=== PATIENT | female | born 1955 | race Caucasian/White ===

== ENCOUNTER 2025-02-11 20:56 | Inpatient (IN) | payer OTHER, MEDICARE ==
[~2025-02-11] VITALS: Ht 172.7 cm; Wt 109.0 kg
[2025-02-11 21:15] VITALS: PULSE 142; RESP 30; O2SAT 87
[2025-02-11] MEDS: SODIUM CHLORIDE 0.9% 1,000 ML IV ONE (21:30)
[2025-02-11 22:00] LABS: Base Excess 0.7 mmol/L (-2.0-3.0)
--- NOTE | 2025-02-11 22:17 | DVH ---
CHEST RADIOGRAPH Indication: AMS Technique: Single frontal view of the chest was obtained Comparison: NONE FINDINGS: Lines and Tubes: None Lungs: Moderately large right pleural effusion with increasing interstitial markings throughout the l eft chest right upper lung field. Findings may represent congestive failure correlate with clinical s etting to exclude pneumonia. Pleura: No effusion. No pneumothorax. Cardiomediastinal contours: Cardiomegaly Bones: No acute osseous abnormality. IMPRESSION: 1. Correlate the clinical setting help distinguish congestive failure versus pneumonia.
[2025-02-11 22:31] LABS: Hematocrit 39.8 % (36.0-46.0); Hemoglobin 12.8 g/dL (12.2-16.2); Mean Corpuscular Hemoglobin 26.2 pg (28.0-32.0); Mean Corpuscular Volume 81.4 fL (80.0-100.0); Nucleated Red Blood Cells % 0.1 %
[2025-02-11 22:40] LABS: Lactic Acid w/Reflex 2.1 mmol/L (0.4-2.0)
--- NOTE | 2025-02-11 22:48 | ECG ---
[facility] Test Date: 2025-02-11 Test Time: 22:08:31 Pat Name: NAIMA PRINCE Department: ED Room: 0236T Gender: F Traffic Director: JOSE JUAN : 1955 Requested By: DEBBIE HELTON Order Number: [id number] Reading MD: Yogi Zimmerman Measurements Intervals [place] Rate: 180 P: 0 CO: 0 QRS: -30 QRSD: 116 T: 125 QT: 293 QTc: 508 Interpretive Statements Atrial fibrillation with rapid V-rate Low voltage, precordial leads LVH with IVCD and secondary repol abnrm Baseline wander in lead(s) V2 Electronically Signed On 02-14-2025 18:59:42 PDT by Yogi Zimmerman Please click the below link to view image of tracing.
[2025-02-11] MEDS: dilTIAZem 25 MG/5 ML VIAL IV ONE (22:53)
[2025-02-11 22:58] LABS: Albumin 3.7 g/dL (3.2-4.8); Alkaline Phosphatase 96 U/L (46-116); Anion Gap 12 (5-15); BUN/Creatinine Ratio 25.3 (10.0-20.0); Bilirubin, Total 0.3 mg/dL (0.2-1.0); Blood Urea Nitrogen 22 mg/dL (9-23); Calcium 9.5 mg/dL (8.7-10.4); Carbon Dioxide 23 mmol/L (20-31); Chloride 100 mmol/L (98-107); Potassium 5.0 mmol/L (3.5-5.1); Sodium 135 mmol/L (136-145); Total Protein 6.2 g/dL (5.7-8.2)
[2025-02-11 22:59] LABS: Alanine Aminotransferase < 9 U/L (7-40); Glucose 484 mg/dL (74-106); Magnesium 1.1 mg/dL (1.6-2.6)
--- NOTE | 2025-02-11 23:11 | ED.PDOC ---
History of Present Illness HPI Comments 69-year-old female who is brought in by ambulance from for [facility] [place] [facility] for chief complaint of altered level consciousness. Significant history of asthma, CVA, DM, HTN, and thyroid disease. Per EMS report, staff of facility reports patient becoming altered after being given insulin and mo rphine, this evening. Upon arrival on scene, patient returned to her normal alert but confused baseline. Vitals stable within normal limits, with the exception of patient being found in AFib at a rate of 179 and blood glucose of 424. At time of assessment, patient endorses on having diffuse chest wall pain, currently, but is unable to elaborate further on the nature and onset of pain, due to her being a poor historian. Patient has no further acute symptoms reported at this time. Chief Complaint: ALOC Time Seen by MD: 21:25 Reviewed Notes: Nurses Notes, Medications, Allergies Allergies: Coded Allergies: NO KNOWN ALLERGIES (Unverified , 02/11/25) Information Source: Patient, Emergency Med Personnel Mode of Arrival: EMS Severity: Moderate Timing: Hours Duration: Since onset Prehospital treatment: None Review of Systems: REVIEW OF SYSTEMS: No fever, no chills, or fatigue HEENT: No sore throat, no earache, no congestion, no neck pain. Cardiac: Diffuse chest wall pain. No palpitations. Lungs: No shortness of breath, no cough. GI: No nausea, no vomiting, no diarrhea, no constipation, no abdominal pain : No dysuria, frequency, or urgency. No hematuria. Musculoskeletal: No joint pain , no joint swelling, no extremity edema. Skin: No rash, no itching. Neuro: Altered level of consciousness. No headache, no dizziness, no weakness Vital Signs Vital Signs Date Time Temp Pulse Resp B/P (MAP) Pulse Ox O2 Delivery O2 Flow Rate FiO2 02/12/25 01:01 140 02/12/25 00:44 123/70 02/11/25 21:15 97.6 30 86 97.6 02/11/25 21:15 Room Air* 0 21 Physical Exam General: Patient speaks very quietly; she is lethargic. Awake, alert and oriented. No acute distress. A&O x1 at baseline Skin: Abrasion wounds across her entire abdomen. Otherwise, remainder of skin is warm, dry and intact. Appropriate color for ethnicity. HEENT: The head is normocephalic and atraumatic. Conjunctivae are clear without exudates or hemorrhage. Sclera is non-icteric. EOM are intact. No signs of nystagmus. Eyelids are normal in appearance without swelling or lesions. Oral mucosa is pink and moist Neck: The neck is supple with normal range of motion. No JVD. Cardiac: Rapid rate, regular rhythm. No murmurs, gallops, or rubs are auscultated. Respiratory: No signs of respiratory distress. Lung sounds are clear in all lobes bilaterally without rales, rhonchi, or wheezes. Abdominal: Abdomen is obese and distended, with generalized tenderness and abrasion wounds. Bowel sounds are present and normoactive in all four quadrants. Extremities: Upper and lower extremities are atraumatic in appearance without deformity or edema. Neurological: The patient is A&Ox 1 at baseline Speech is low but clear. There is no facial asymmetry. Psychiatric: Appropriate mood and affect. Good judgement and insight. Past Medical History PAST MEDICAL HISTORY: Asthma, CVA, DM, HTN, Thyroid Surgical History: Denies all surgeries RESEARCH AND DEVELOPMENT CHEMIST History: Denies all RESEARCH AND DEVELOPMENT CHEMIST Hx Family History Family History: Unknown Social History Smoker: Non-Smoker Alcohol: Denies ETOH Use Drugs: Denies Drug Use Lives In: Shelter Was a procedure done? Was a procedure done?: No EKG EKG #1: Pulse Rate (adult): 175 [place]: Normal Cardiac Rhythm: Afib Hypertrophy: LVH (w/IVCD) ST: Normal Comments QTc 505 EKG #2: Pulse Rate (adult): 180 [place]: Normal Cardiac Rhythm: Afib Block: None Hypertrophy: LVH (w/IVCD) ST: Normal Comments QTC of 508 EKG #3: Pulse Rate (adult): 140 [place]: Normal Cardiac Rhythm: Afib Block: None Hypertrophy: LVH (w/IVCD) ST: Normal Differential Dx Considerations may include: Differential diagnosis considered includes but not limited to intracranial hemorrhage, stroke, head injury, seizure, metabolic disturbance, electrolyte imbalance, infection, substance intoxication, psychiatric cause, other systemic illness, other X-Ray, Labs, Meds, VS Vital Signs Date Time Temp Pulse Resp B/P (MAP) Pulse Ox O2 Delivery O2 Flow Rate FiO2 02/12/25 01:01 140 02/12/25 00:44 123/70 02/12/25 00:00 141 02/11/25 23:56 146 02/11/25 23:21 136/114 02/11/25 23:11 180 02/11/25 22:08 180 02/11/25 21:15 97.6 142 30 146/114 (125) 86 97.6 02/11/25 21:15 142 30 87 Room Air* 0 21 02/11/25 21:05 175 02/11/25 21:05 99.1 179 18 113/82 (92) 95 99.1 Lab Test 02/12/25 01:09 02/12/25 01:02 02/12/25 00:30 02/11/25 23:12 Range/Units Troponin I High Sensitivity Pending 52 *H </=34 ng/L POC Glucose 317 H 70-106 mg/dl Urine Color Pending Urine Clarity Pending Urine pH Pending Urine Specific [place] Pending Urine Protein Pending Urine Ketones Pending Urine Blood Pending Urine Nitrite Pending Urine Bilirubin Pending Urine Urobilinogen Pending Urine Leukocyte Esterase Pending Urine RBC Pending Urine Microscopic WBC Pending Urine Squamous Epithelial Cells Pending Urine Bacteria Pending Urine Glucose Pending Urine Opiates Screen Pending Urine Fentanyl Screen Pending Urine Barbiturates Screen Pending Urine Phencyclidine Screen Pending Urine Amphetamines Screen Pending Urine Benzodiazepines Screen Pending Urine Cocaine Screen Pending Urine Cannabinoids Screen Pending Lactic Acid Level 2.1 *H 0.4-2.0 mmol/L Test 02/11/25 21:52 02/11/25 21:43 02/11/25 21:15 02/11/25 21:13 Range/Units POC Glucose 448 *H 466 *H 422 *H 70-106 mg/dl White Blood Count 10.4 4.4-10.8 10^3/uL Red Blood Count 4.89 4.0-5.20 10^6/uL Hemoglobin 12.8 12.2-16.2 g/dL Hematocrit 39.8 36.0-46.0 % Mean Corpuscular Volume 81.4 80.0-100.0 fL Mean Corpuscular Hemoglobin 26.2 L 28.0-32.0 pg Mean Corpuscular Hemoglobin Concent 32.2 32.0-36.0 g/dL Red Cell Distribution Width 14.6 H 11.8-14.3 % Platelet Count 292 140-450 10^3/uL Mean Platelet Volume 9.2 6.9-10.8 fL Neutrophils (%) (Auto) 84.9 H 37.0-80.0 % Lymphocytes (%) (Auto) 8.3 L 10.0-50.0 % Monocytes (%) (Auto) 5.9 0.0-12.0 % Eosinophils (%) (Auto) 0.0 0.0-7.0 % Basophils (%) (Auto) 0.9 0.0-2.0 % Neutrophils # (Auto) 8.8 H 1.6-8.6 10 ^3/uL Lymphocytes # (Auto) 0.9 0.4-5.4 10 ^3/uL Monocytes # (Auto) 0.6 0-1.3 10 ^3/uL Eosinophils # (Auto) 0 0-0.8 10 ^3/uL Basophils # (Auto) 0.1 0-0.2 10 ^3/uL Nucleated Red Blood Cells 0.1 % Blood Gas Specimen Type Arterial Blood Gas Sample Site Left radial Blood Gas Patient Temperature 37.0 Arterial Blood Date Drawn [id number] Arterial Blood pH 7.446 7.350-7.450 Arterial Blood Partial Pressure CO2 36.3 32.0-45.0 mmHg Arterial Blood Partial Pressure O2 48.9 *L 83.0-108.0 mmHg Arterial Blood HCO3 24.4 21.0-28.0 mmol/L Arterial Blood Oxygen Saturation 83.6 *L 94.0-98.0 % Arterial Blood Base Excess 0.7 -2.0-3.0 mmol/L Arterial Blood Oxyhemoglobin 82.1 L 94.0-98.0 % Arterial Blood Carboxyhemoglobin 1.4 0.5-1.5 % Arterial Blood Methemoglobin 0.4 0.0-1.5 % Julian Test Modified Blood Gas Total Hemoglobin 13.60 12.0-16.0 g/dL Blood Gas Liter Flow 0.00 Blood Gas Modality Room air Blood Gas Spontaneous Rate 18 FiO2 % 36.0 Specimen Drawn By Steven esparza Blood Gas Critical Value Read Back Yes Blood Gas Notified Whom aubree Barrow Blood Gas Notified Time [id number] Blood Gas Notified By Steven esparza Sodium Level 135 L 136-145 mmol/L Potassium Level 5.0 3.5-5.1 mmol/L Chloride Level 100 98-107 mmol/L Carbon Dioxide Level 23 20-31 mmol/L Anion Gap 12 5-15 Blood Urea Nitrogen 22 9-23 mg/dL Creatinine 0.87 0.550-1.02 mg/dL Glomerular Filtration Rate Calc 73 >90 mL/min BUN/Creatinine Ratio 25.3 H 10.0-20.0 Serum Glucose 484 *H 74-106 mg/dL Lactic Acid Level 2.1 *H 0.4-2.0 mmol/L Calcium Level 9.5 8.7-10.4 mg/dL Magnesium Level 1.1 L 1.6-2.6 mg/dL Total Bilirubin 0.3 0.2-1.0 mg/dL Aspartate Amino Transferase (AST) < 8 L 13-40 U/L Alanine Aminotransferase (ALT) < 9 7-40 U/L Alkaline Phosphatase 96 46-116 U/L Troponin I High Sensitivity 55 *H </=34 ng/L B-Type Natriuretic Peptide 553.40 0-100 pg/mL Total Protein 6.2 5.7-8.2 g/dL Albumin 3.7 3.2-4.8 g/dL Lipase 21 12-53 U/L Beta-Hydroxybutyric Acid 1.335 H < 0.4 mmol/L Thyroid Stimulating Hormone (TSH) 4.11 0.55-4.78 uIU/mL Plasma/Serum Blood Alcohol < 3.0 <10 mg/dL Current Medications Medications (Trade) Dose Ordered Sig/Lindsey Route Start Time Stop Time Status Last Admin Sodium Chloride 1,000 ml @ 1,000 mls/hr Q1H ONCE IV 02/11/25 21:30 02/11/25 22:29 DC 02/11/25 21:30 Diltiazem HCl (Cardizem Injection) 20 mg ONCE ONCE IV 02/11/25 21:30 02/11/25 21:31 DC 02/11/25 22:53 Furosemide (Lasix Injection) 20 mg ONCE ONCE IV 02/11/25 23:00 02/11/25 23:01 DC 02/11/25 23:21 Insulin Human Regular (InsuLIN R) 6 units ONCE ONCE IV 02/11/25 23:15 02/11/25 23:16 DC 02/11/25 23:22 Diltiazem HCl (Cardizem Injection) 15 mg ONCE ONCE IV 02/12/25 00:15 02/12/25 00:16 DC 02/12/25 00:19 Diltiazem HCl 125 ml @ 5 mls/hr Q24H ONCE IV 02/12/25 00:15 02/12/25 01:26 DC 02/12/25 00:44 Time of 1ST Reevaluation: 01:42 Reevaluation 1ST: Improved Patient Education/Counseling: Other (Patient is confused) Family Education/Counseling: No Family Present SEPSIS Sepsis Screen Date sepsis recognized/suspect: Feb 11, 2025 Time Sepsis recognized/suspect: 2110 Recent Procedure: No On Antibiotic Therapy: No Respiratory Rate >20: No Heart Rate >90: Yes Temp<36 C (96.8 F) or >38.3 C: No SBP <90 or MAP <65 mmHG: No New Acute Mental Status Change: Yes Is the patient on CPAP, BIPAP,: No Physician Orders Abg W/ Co-Ox (02/11/25 21:24) Saline Lock (02/11/25 21:24) Urinalysis (02/11/25 21:24) Drug Screen (02/11/25 21:24) Covid19 Antigen Lenka (02/11/25 ) Rapid Influenza A&B (02/11/25 21:24) Chest Xray 1 View (02/11/25 21:24) Blood Culture (02/11/25 21:24) Saline Lock (02/11/25 21:24) Straight Cath. (02/11/25 ) Troponin-I Hs (02/12/25 00:24) Electrocardigram (02/11/25 22:24) Electrocardigram (02/12/25 00:24) Eap Consultant (02/11/25 ) Notify Md If Abnormal Vs (02/11/25 22:01) Blood Glucose Assessment (02/12/25 00:09) Vital Signs Date Time Temp Pulse Resp B/P (MAP) Pulse Ox O2 Delivery O2 Flow Rate FiO2 02/12/25 01:01 140 02/12/25 00:44 123/70 02/12/25 00:00 141 02/11/25 23:56 146 02/11/25 23:21 136/114 02/11/25 23:11 180 02/11/25 22:08 180 02/11/25 21:15 97.6 142 30 146/114 (125) 86 97.6 02/11/25 21:15 142 30 87 Room Air* 0 21 02/11/25 21:05 175 02/11/25 21:05 99.1 179 18 113/82 (92) 95 99.1 Laboratory Tests Test 02/11/25 21:43 02/11/25 23:12 Lactic Acid Level 2.1 mmol/L (0.4-2.0) *H 2.1 mmol/L (0.4-2.0) *H White Blood Count 10.4 10^3/uL (4.4-10.8) Medications Medications Dose Ordered Sig/Lindsey Route Start Time Stop Time Status Last Admin Dose Admin Diltiazem HCl 15 mg ONCE ONCE IV 02/12/25 00:15 02/12/25 00:16 IL 02/12/25 00:19 Diltiazem HCl 20 mg ONCE ONCE IV 02/11/25 21:30 02/11/25 21:31 IL 02/11/25 22:53 Diltiazem HCl 125 ml @ 5 mls/hr Q24H ONCE IV 02/12/25 00:15 02/12/25 01:26 IL 02/12/25 00:44 Furosemide 20 mg ONCE ONCE IV 02/11/25 23:00 02/11/25 23:01 IL 02/11/25 23:21 Insulin Human Regular 6 units ONCE ONCE IV 02/11/25 23:15 02/11/25 23:16 IL 02/11/25 23:22 Sodium Chloride 1,000 ml @ 1,000 mls/hr Q1H ONCE IV 02/11/25 21:30 02/11/25 22:29 IL 02/11/25 21:30 Departure 1 Departure Time of Disposition: 23:30 Impression: Primary Impression: Altered mental status Additional Impressions: Hyperglycemia Pleural effusion Disposition: ADMITTED INPATIENT Condition: Stable Comments Patient stabilized in the emergency department. Started on Lasix, Cardizem bolus and drip. Patient admitted to hospitalist service for further treatment, evaluation and monitoring. Extensive evaluation was performed in attempt to identify or rule out: (See differential diagnosis section) The following tests were ordered, and results were reviewed by me and discussed with patient: (See diagnostic results section) The following test were independently interpreted by me: EKG I reviewed and agreed with the following test results read by other providers: Chest x-ray I reviewed the following notes from the pt's past medical encounters: N/A Additional information was gathered from interviewing the following independent historians: EMS Discussion of management or test interpretation with external physician/other qualified health skin care consultant: N/A Addressed an acute or chronic illness that poses a threat to life or bodily function: Atrial fibrillation, pleural effusion, hypoxia, Decision regarding hospitalization or escalation of hospital level of care: Risk and benefits of admission for further treatment of patient's condition was considered. Due to patient's current clinical condition, high risk of decline and poor outcome if discharged and need for further inpatient management and monitoring, patient will be admitted to the hospital. Drug therapy requiring intensive monitoring for toxicity: IV Cardizem, IV Lasix Parenteral controlled substances: N/A Decision regarding elective major surgery with identified patient or procedure risk factors: N/A Decision regarding emergency major surgery: N/A Decision not to resuscitate or to de-escalate care because of poor prognosis: N/A Diagnosis or treatment significantly limited by social determinants of health: N/A Critical Care Note Critical Care Time?: Yes (35 min-critical care time only) Critical care comment: Due to a high probability of clinically significant, life threatening deterioration, the patient required my highest level of preparedness to intervene emergently and I personally spent this critical care time directly and personally managing the patient. This critical care time included obtaining a history; examining the patient; pulse oximetry; ordering and review of studies; arranging urgent treatment with development of a management plan; evaluation of patient's response to treatment; frequent reassessment; and, discussions with other providers. This critical care time was performed to assess and manage the high probability of imminent, life-threatening deterioration that could result in multi-organ failure. It was exclusive of separately billable procedures and treating other patients and teaching time. Please see my other sections and the rest of the note for further information on patient assessment and treatment. Stability Stability form required: No Heart Score Heart Score: Heart Score Response (Comments) Value History Slightly Suspicious 0 EKG Repolarization Disturb 1 Age >65 2 Risk Factors >3 or Hx ASHD 2 Troponin Normal limit 0 Total 5 I personally scribed for DEBBIE HELTON MD ([email or web address]) on 02/11/25 at 23:11. Electronically submitted by Cosme Horton ([email or web address]). I personally scribed for DEBBIE HELTON MD ([email or web address]) on 02/12/25 at 01:01. Electronically submitted by Cosme Horton ([email or web address]). DEBBIE HELTON MD Feb 11, 2025 23:11
[2025-02-11 23:12] LABS: Lipase 21 U/L (12-53)
[2025-02-11] MEDS: FUROSEMIDE 40 MG/4 ML VIAL IV ONE (23:21)
[2025-02-11] MEDS: InsuLIN REG 1unit/0.01ml Soln (100units/ml) IV ONE (23:22)
[2025-02-12] MEDS: dilTIAZem 25 MG/5 ML VIAL IV ONE (00:19)
[2025-02-12] MEDS ORDERED: ONDANSETRON HCL 4 MG/2 ML VIAL IV PRN (01:15)
[2025-02-12] MEDS ORDERED: DEXTROSE (50%) 50ML SYRG IV PRN (01:15)
[2025-02-12] MEDS ORDERED: NITROGLYCERIN 0.4 MG SL TAB SL PRN (01:15)
[2025-02-12] MEDS ORDERED: INSULIN LANTUS (GLARGINE) 1 /0.01ml (100units/ml) SC ONE (01:30)
[2025-02-12 01:41] LABS: Opiate Scree,Urine Neg (NEGATIVE); Urine Budding Yeast LOADED /hpf (None Seen); Urine Protein, UAD Negative (Negative)
[2025-02-12 01:43] LABS: Barbiturate Scree,Urine Neg (NEGATIVE); Phencyclidine Screen, Urine Neg (NEGATIVE)
[2025-02-12 01:44] LABS: Amphetamine Screen, Urine Neg (NEGATIVE); Benzodiazephine Screen, Urine Neg (NEGATIVE); Cannabinoid Screen, Urine Neg (NEGATIVE); Cocaine Screen, Urine Neg (NEGATIVE)
--- NOTE | 2025-02-12 01:48 | DVHHP2 ---
History of Present Illness History of Present Illness Patient is 69 years old female hospice revoked with a past medical history of hypertension, diabetes mellitus type 2, CVA with right-sided residual, hyperlipidemia, asthma, hypothyroidism, MDD, anxiety [facility] due to altered mental status. Patient is a poor historian, information was gathered from chart reviewing and after talking to the patient. Patient became altered and confused after she had insulin and morphine at [facility], EMS was called and blood sugars found to be 424, patient was also tachycardic with atrial fibrillation with a rate 179. Later on patient's mental status improved but still with some confusion. On discussion with the patient she reported feeling short of breath at the facility and on arrival to ER her saturation was 82 -86% in room air. Patient endorsed shortness of breaths has been going on for a few days but could not give exact account. Patient also endorsed abdominal pain, severe, intermittent, 10/10, reported it has been going on for a while but could not give exact duration. Initial lab workup revealed neutrophil 84.9%, blood sugar 448, lactic acid 2.1, magnesium 1.1, troponin I 55, BNP 553, lipase 21, beta hydroxybutyrate acid 1.3, TSH 4.0, patient tested negative for COVID and influenza. chest x-ray-B/L pleural effusion, Moderately large right pleural effusion with increasing interstitial markings throughout the left chest and right upper lung field. EKG revealed atrial fibrillation with rapid ventricular rate 179. At the ER patient had IV diltiazem for atrial fibrillation with a rapid ventricular rate. CT angio chest revealed-Lobar pulmonary embolism in the left pulmonary artery. Pulmonary edema and bilateral pleural effusions concerning for congestive heart failure. Left upper lobe bronchiectasis and consolidation concerning for infectious etiology. Cardiomegaly. CT abdominal pelvis revealed- 7mm nonobstructive calculus in the right renal pelvis. Additional 3 mm nonobstructive stone in the upper pole of the right kidney.Stool throughout the colon may suggest constipation. Past Medical History hypertension, diabetes mellitus type 2, CVA with right-sided residual, hyperlipidemia, asthma, hypothyroidism, MDD, anxiety Past Social History [facility], denies smoking/alcoholism/drug abuse Review of Systems Review of Systems Patient is a poor historian and details of the other system could not be obtained Allergies: Coded Allergies: NO KNOWN ALLERGIES (Unverified , 7/7/25) Medications Current Medications Medications Dose Ordered Sig/Lindsey Route Start Time Stop Time Status Last Admin Dose Admin Sodium Chloride 10 ml Q8HR IV 02/12/25 06:00 Ondansetron HCl 4 mg Q4HP PRN IV 02/12/25 01:15 Nitroglycerin 0.4 mg Q5MINP PRN SL 02/12/25 01:15 Diagnostic Test (Pha) 1 strip IQ4HR 02/12/25 04:00 Insulin Human Regular IQ4HR SC 02/12/25 04:00 Dextrose 50 ml UD PRN IV 02/12/25 01:15 Piperacillin Sod/ Tazobactam Sod 100 ml @ 25 mls/hr Q8HR IV 02/12/25 14:00 Azithromycin 250 ml @ 125 mls/hr DAILY IV 02/13/25 10:00 Pantoprazole Sodium 40 mg DAILY IV 02/13/25 10:00 Magnesium Sulfate/ Dextrose 100 ml @ 100 mls/hr Q1H IV 02/12/25 01:30 02/12/25 03:29 Furosemide 40 mg BIDD IV 02/12/25 06:00 Enoxaparin Sodium 90 mg Q12HR SC 02/12/25 10:00 Exam Vital Signs Vital Signs Date Time Temp Pulse Resp B/P (MAP) Pulse Ox O2 Delivery O2 Flow Rate FiO2 02/12/25 01:12 127/72 02/12/25 01:01 140 02/11/25 21:15 97.6 30 86 97.6 02/11/25 21:15 Room Air* 0 21 Exam General examination- patient with shortness of breath HEENT- PEERLA, no acute nasal discharge Cardiovascular- S1-S2 audible, rate and rhythm irregular Respiratory- diminished bilateral lung sounds, bilateral lung crackles++ Gastrointestinal-diffuse abdominal tenderness especially in the lower abdomen++, , bowel sound+. Musculoskeletal-no acute joint swelling or tenderness or redness Lower extremity- no leg edema Neurological- patient with right-sided hemiparesis, right hand contracture Skin- no acute rash or purpura Labs/Xrays Labs Test 02/12/25 01:15 02/12/25 01:09 02/12/25 01:02 02/12/25 00:30 Range/Units POC Glucose 317 H 70-106 mg/dl Urine Color Colorless Yellow Urine Clarity Turbid H Clear Urine pH 5.0 5.0-9.0 Urine Specific [place] 1.008 1.001-1.035 Urine Protein Negative Negative Urine Ketones Negative Negative Urine Blood 1+ H Negative /uL Urine Nitrite Negative Negative Urine Bilirubin Negative Negative Urine Urobilinogen Normal Negative mg/dL Urine Leukocyte Esterase 3+ Negative /uL Urine RBC 35 0 - 4 /hpf Urine Microscopic WBC 146 H 0-5 /HPF Urine Squamous Epithelial Cells None seen <5 /hpf Urine Bacteria Many H None Seen /hpf Urine Hyaline Casts Few 0 - 2 /lpf Urine Mucus Few None Seen Urine Yeast (Budding) Loaded None Seen /hpf Urine Glucose 2+ H Normal mg/dL Urine Opiates Screen Neg NEGATIVE Urine Fentanyl Screen Neg NEGATIVE Urine Barbiturates Screen Neg NEGATIVE Urine Phencyclidine Screen Neg NEGATIVE Urine Amphetamines Screen Neg NEGATIVE Urine Benzodiazepines Screen Neg NEGATIVE Urine Cocaine Screen Neg NEGATIVE Urine Cannabinoids Screen Neg NEGATIVE Test 02/11/25 23:12 02/11/25 21:43 Range/Units Lactic Acid Level 2.1 *H 0.4-2.0 mmol/L White Blood Count 10.4 4.4-10.8 10^3/uL Red Blood Count 4.89 4.0-5.20 10^6/uL Hemoglobin 12.8 12.2-16.2 g/dL Hematocrit 39.8 36.0-46.0 % Mean Corpuscular Volume 81.4 80.0-100.0 fL Mean Corpuscular Hemoglobin 26.2 L 28.0-32.0 pg Mean Corpuscular Hemoglobin Concent 32.2 32.0-36.0 g/dL Red Cell Distribution Width 14.6 H 11.8-14.3 % Platelet Count 292 140-450 10^3/uL Mean Platelet Volume 9.2 6.9-10.8 fL Neutrophils (%) (Auto) 84.9 H 37.0-80.0 % Lymphocytes (%) (Auto) 8.3 L 10.0-50.0 % Monocytes (%) (Auto) 5.9 0.0-12.0 % Eosinophils (%) (Auto) 0.0 0.0-7.0 % Basophils (%) (Auto) 0.9 0.0-2.0 % Neutrophils # (Auto) 8.8 H 1.6-8.6 10 ^3/uL Lymphocytes # (Auto) 0.9 0.4-5.4 10 ^3/uL Monocytes # (Auto) 0.6 0-1.3 10 ^3/uL Eosinophils # (Auto) 0 0-0.8 10 ^3/uL Basophils # (Auto) 0.1 0-0.2 10 ^3/uL Nucleated Red Blood Cells 0.1 % Blood Gas Specimen Type Arterial Blood Gas Sample Site Left radial Blood Gas Patient Temperature 37.0 Arterial Blood Date Drawn [id number] Arterial Blood pH 7.446 7.350-7.450 Arterial Blood Partial Pressure CO2 36.3 32.0-45.0 mmHg Arterial Blood Partial Pressure O2 48.9 *L 83.0-108.0 mmHg Arterial Blood HCO3 24.4 21.0-28.0 mmol/L Arterial Blood Oxygen Saturation 83.6 *L 94.0-98.0 % Arterial Blood Base Excess 0.7 -2.0-3.0 mmol/L Arterial Blood Oxyhemoglobin 82.1 L 94.0-98.0 % Arterial Blood Carboxyhemoglobin 1.4 0.5-1.5 % Arterial Blood Methemoglobin 0.4 0.0-1.5 % Julian Test Modified Blood Gas Total Hemoglobin 13.60 12.0-16.0 g/dL Blood Gas Liter Flow 0.00 Blood Gas Modality Room air Blood Gas Spontaneous Rate 18 FiO2 % 36.0 Specimen Drawn By Steven kim rt Blood Gas Critical Value Read Back Yes Blood Gas Notified Whom aubree Barrow Blood Gas Notified Time [id number] Blood Gas Notified By Steven kim rt Sodium Level 135 L 136-145 mmol/L Potassium Level 5.0 3.5-5.1 mmol/L Chloride Level 100 98-107 mmol/L Carbon Dioxide Level 23 20-31 mmol/L Anion Gap 12 5-15 Blood Urea Nitrogen 22 9-23 mg/dL Creatinine 0.87 0.550-1.02 mg/dL Glomerular Filtration Rate Calc 73 >90 mL/min BUN/Creatinine Ratio 25.3 H 10.0-20.0 Serum Glucose 484 *H 74-106 mg/dL Calcium Level 9.5 8.7-10.4 mg/dL Magnesium Level 1.1 L 1.6-2.6 mg/dL Total Bilirubin 0.3 0.2-1.0 mg/dL Aspartate Amino Transferase (AST) < 8 L 13-40 U/L Alanine Aminotransferase (ALT) < 9 7-40 U/L Alkaline Phosphatase 96 46-116 U/L B-Type Natriuretic Peptide 553.40 0-100 pg/mL Total Protein 6.2 5.7-8.2 g/dL Albumin 3.7 3.2-4.8 g/dL Lipase 21 12-53 U/L Beta-Hydroxybutyric Acid 1.335 H < 0.4 mmol/L Thyroid Stimulating Hormone (TSH) 4.11 0.55-4.78 uIU/mL Plasma/Serum Blood Alcohol < 3.0 <10 mg/dL Assessment/Plan Assessment/Plan Assessment and plan # metabolic encephalopathy likely due to pneumonia/hyperglycemia -blood sugar 484, lactic acid 2.1, -continue IV antibiotic Zosyn and azithromycin as prescribed -continue insulin sliding scale as prescribed -continue insulin Lantus as prescribed -pending blood culture, urine culture, sputum culture -pending CT angio chest -monitor vitals -strict I&O # sepsis likely due to pneumonia --continue IV antibiotic Zosyn and azithromycin as prescribed -chest [id number] pleural effusion with haziness in the left side of the chest -pending blood culture, urine culture, sputum culture -monitor vitals -strict I&O # pulmonary embolism - CT angio chest revealed-Lobar pulmonary embolism in the left pulmonary artery. Pulmonary edema and bilateral pleural effusions concerning for congestive heart failure. Left upper lobe bronchiectasis and consolidation concerning for infectious etiology. Cardiomegaly. -continue Lovenox 90 mg subcutaneously b.i.d. -pending cardiology and Pulmonary consult # pneumonia Gram-positive versus Gram-negative --CT angio chest CT angio chest revealed-Lobar pulmonary embolism in the left pulmonary artery. Pulmonary edema and bilateral pleural effusions concerning for congestive heart failure. Left upper lobe bronchiectasis and consolidation concerning for infectious etiology. Cardiomegaly. -pending ultrasound of the chest --continue IV antibiotic Zosyn and azithromycin as prescribed -chest [id number] pleural effusion with diffuse haziness in the left side of the chest -pending blood culture, urine culture, sputum culture # acute hypoxic respiratory failure likely due to pneumonia/heart failure systolic versus diastolic -continue Lasix 40 mg IV b.i.d. -continue IV antibiotic Zosyn and azithromycin as prescribed -BNP 553 -pending cardiology consult -pending echo 2D # acute heart failure systolic versus diastolic --continue Lasix 40 mg IV b.i.d. -BNP 553 -pending cardiology consult -pending echo 2D # uncontrolled diabetes mellitus type 2 -continue insulin sliding scale as prescribed -continue insulin Lantus as prescribed # atrial fibrillation with rapid ventricular rate -status post i/v diltiazem -continue IV amiodarone as per protocol -continue Lovenox 90 mg subcutaneously b.i.d. # acute complicated cystitis -urinalysis revealed leukocyte esterase 3+, WBC 146, bacteria many -pending urine culture -continue IV antibiotic Zosyn as prescribed # intractable abdominal pain likely due to nephrolithiasis -CT abdominal pelvis revealed- 7mm nonobstructive calculus in the right renal pelvis. -Additional 3 mm nonobstructive stone in the upper pole of the right kidney.S -continue pain medication as prescribed -consult urology -continue Flomax 0.4 mg p.o. daily # hypertension -monitor blood pressure # acute abdominal pain under evaluation -pending CT abdomen and pelvis # bilateral pleural effusion, rule out pneumonia/heart failure/PE -Pending CT angio chest -ordered ultrasound of the chest -pending Pulmonary consult # lactic acidosis likely due to sepsis -continue current management # hypomagnesemia -supplemented # hypothyroidism -restarted home medication levothyroxine 200 mcg p.o. q.a.m. # hyperlipidemia -atorvastatin 40 mg p.o. q.h.s. # asthma -continue nebulization as prescribed # MDD # anxiety Strict I&O Diet NPO Patient wished to DNI/DNR, but okay with IV fluid, IV antibiotic, LAab workup, Radio imaging, vasopressor Goals of care, Code statusDNR ; discussed with >15 minutes PUD prophylaxis: Pantoprazole DVT prophylaxis: Lovenox Plan discussed with Dr. Rosales , nursing staff, Total time spent on patient evaluation, chart review, assessment and plan, discussion discussion >35 minutes Plan discussed with: Patient, Other (RN) My Orders Orders - GENNARO CASTILLO RESIDENT Procedure Category Date Status Time Admit ADMIT 02/12/25 Transmitted 01:09 Sodium Chloride Lock PHA 02/12/25 In Process (Saline Lock Ns) 06:00 Ondansetron Hcl PHA 02/12/25 In Process (Zofran) 01:15 Npo (Nothing By DIET 02/12/25 Transmitted Mouth) Diet Breakfast Echo 2d Mode Cardiac US 02/12/25 Logged DOP 01:09 Nitroglycerin PHA 02/12/25 In Process Sublingual (Ntrostat 01:15 Notify Of Changes JASON 02/12/25 In Process From Base 01:09 Consumer Analyst For JASON 02/12/25 In Process 24 Hours 01:09 Glucose Blood PHA 02/12/25 In Process (Accu-Chek Comfort 04:00 Insulin R (Human) PHA 02/12/25 In Process (Insulin R) 04:00 Dextrose 50% Syringe PHA 02/12/25 In Process 01:15 Piperacillin-Tazob PHA 02/12/25 In Process 3.375gm (Zosyn 3.375g 14:00 Piperacillin-Tazob PHA 02/12/25 In Process 3.375gm (Zosyn 3.375g 01:15 Azithromycin 500mg/ PHA 02/12/25 In Process 250ml (Zithromax 50 01:15 *Consult CONS 02/12/25 Transmitted / 01:11 * Cardiology Consult CONS 02/12/25 Transmitted 01:11 Magnesium Sulfate PHA 02/12/25 In Process 1gm/100ml 01:30 Azithromycin 500mg/ PHA 02/13/25 In Process 250ml (Zithromax 50 10:00 Pantoprazole PHA 02/13/25 In Process (Protonix) 10:00 Furosemide Injection PHA 02/12/25 In Process (Lasix Injection) 06:00 Mrsa Screen DESIREE 02/12/25 Logged 01:20 Enoxaparin Sodium PHA 02/12/25 In Process (Lovenox) 10:[address] 02/12/25 Logged Contrast 01:23 Blood Culture DESIREE 02/12/25 Logged 01:25 Respiratory Culture DESIREE 02/12/25 Logged W/ Gs 01:25 Urine Bacterial DESIREE 02/12/25 Logged Culture 01:25 Amiodarone PHA 02/12/25 In Process 360mg/200ml Premix 01:45 Amiodarone PHA 02/12/25 In Process 360mg/200ml Premix 07:45 Transfer Orders XFER 02/12/25 Transmitted 01:27 Intake And Output JASON 02/12/25 In Process 01:28 Chest Ultrasound US 02/12/25 Taken 01:30 Ct Ab Pel Wo Con-No CT 02/12/25 Logged Oral Or Iv 01:46 Date of Service: Feb 12, 2025 Billing Provider: NINOSKA ROSALES MD Common Visit Codes: 96421-OCZNRCH INP/OBS CARE (HIGH) Secondary Visit Codes: 36675-[id number] CARE PLAN 30 MINUTES GENNARO CASTILLO RESIDENT Feb 12, 2025 01:48
[2025-02-12] MEDS: PANTOPRAZOLE 40 MG/10 ML VIAL INJ IV ONE (02:05)
[2025-02-12] MEDS: MAGNESIUM SULFATE 1GM/100ML 100 ML IV SCH (02:05)
[2025-02-12] MEDS: AMIODARONE BOLUS KIT 100 ML IV ONE (02:05)
[2025-02-12] MEDS: ENOXAPARIN SOD 100 MG/1 ML SYRINGE SC ONE (02:06)
[2025-02-12] MEDS: AMIODARONE 360mg/200mL PREMIX 200 ML IV ONE (02:27)
[2025-02-12 02:44] LABS: COVID19 ANTIGEN SOFIA FIA NEGATIVE (NEGATIVE)
--- NOTE | 2025-02-12 03:35 | DVH ---
Bilateral Chest Sonogram Date: 02/12/2025 01:40 AM Clinical history: SOB Findings: Limited sonographic evaluation of the right and left chest was performed to localize and steve fluid f or thoracentesis. There is a small pleural effusion. IMPRESSION: Small bilateral pleural effusions, too small for thoracentesis. END IMPRESSION:
[2025-02-12] MEDS: InsuLIN REG 1unit/0.01ml Soln (100units/ml) SC SCH (04:00)
[2025-02-12] MEDS: PIPERACILLIN-TAZOB 3.375GM 100 ML IV ONE (04:20)
[2025-02-12] MEDS: ACCU-CHEK COMFORT CURVE STRIP VI SCH (04:20)
[2025-02-12] MEDS: INSULIN LANTUS (GLARGINE) 1 /0.01ml (100units/ml) SC ONE (04:20)
[2025-02-12] MEDS: AZITHROMYCIN 500MG/ 250ML 250 ML IV ONE (05:47)
[2025-02-12] MEDS: SODIUM CHLOR 0.9% PF (SALINE LOCK) 10ML VIAL/SYR IV SCH (06:29)
[2025-02-12] MEDS: LEVOTHYROXINE SODIUM 100 MCG TAB PO SCH (06:30)
[2025-02-12] MEDS: IOHEXOL 300 MG/ML 100ML BOTTLE IJ ONE (06:30)
[2025-02-12] MEDS: FUROSEMIDE 40 MG/4 ML VIAL IV SCH (06:30)
--- NOTE | 2025-02-12 06:35 | ECG ---
[facility] Test Date: 2025-02-11 Test Time: 21:05:22 Pat Name: NAIMA PRINCE Department: ED Room: 0236T Gender: F Food Service Tray Attendant: ED : 1955 Requested By: DEBBIE HELTON Order Number: [id number] Reading MD: Yogi Zimmerman Measurements Intervals [place] Rate: 175 P: -17 OK: 84 QRS: -35 QRSD: 118 T: 140 QT: 296 QTc: 505 Interpretive Statements Supraventricular tachycardia LVH with IVCD and secondary repol abnrm Baseline wander in lead(s) V2,V3 Electronically Signed On 02-14-2025 18:59:28 PDT by Yogi Zimmerman Please click the below link to view image of tracing.
--- NOTE | 2025-02-12 06:36 | DVH ---
CTA Chest with intravenous contrast INDICATION: SOB, RULE OUT PE COMPARISON: Chest radiograph performed on 02/11/2025 TECHNIQUE: Multidetector spiral CTA of the chest was performed of the chest with 100 cc of omnipaque 300 intravenous contrast. PULMONARY ANGIOGRAPHY PROTOCOL was utilized using a bolus-tracking techniqu e centered on the main pulmonary artery. Coronal and sagittal multiplanar and MIP reformats were perf ormed. Radiation Dose : 1. Chest: CTDI volume is 26.6 mGy. Dose-length product is 13.8 mGy*cm The dose indicators for CT are the volume Computed Tomography (CT) Dose Index (CTDIvol) and the Dose Length Product (DLP), and are measured in units of mGy and mGy-cm, respectively. These indicators are not patient dose, but values generated from the CT scanner acquisition factors. The report includes radiation exposure data for exposures received during this examination. FINDINGS: Pulmonary artery: Filling defects in the left pulmonary artery consistent with pulmonary embolism. Lower neck: The thyroid is unremarkable. Lungs: Bilateral interlobular interlobular septal thickening and ground-glass opacities. Left upper l obe bronchiectasis and consolidation. Central airways: Patent. Pleura: No pneumothorax. Small bilateral pleural effusions. Heart/Vascular Structures: The heart is enlarged. The RV to LV ratio measures 0.7. No pericardial ef fusion. Thoracic aorta is normal in caliber. No aneurysm or dissection. Lymph Nodes: No mediastinal or hilar lymphadenopathy. Esophagus:Grossly unremarkable. Musculoskeletal: Unremarkable. Body wall: Unremarkable. Upper abdomen: Unremarkable. IMPRESSION: 1. Lobar pulmonary embolism in the left pulmonary artery. No CT evidence of right heart strain. 2. Pulmonary edema and bilateral pleural effusions concerning for congestive heart failure. 3. Left upper lobe bronchiectasis and consolidation concerning for infectious etiology. 4. Cardiomegaly.
--- NOTE | 2025-02-12 06:37 | ECG ---
[facility] Test Date: 2025-02-12 Test Time: 01:53:52 Pat Name: NAIMA PRINCE Department: ED Room: 0236T Gender: F Resource Specialist Teacher: JOSE JUAN : 1955 Requested By: DEBBIE HELTON Order Number: [id number] Reading MD: Yogi Zimmerman Measurements Intervals [place] Rate: 116 P: 0 SD: 0 QRS: -33 QRSD: 118 T: 118 QT: 356 QTc: 495 Interpretive Statements Atrial fibrillation Low voltage, precordial leads LVH with IVCD and secondary repol abnrm Borderline prolonged QT interval Electronically Signed On 02-14-2025 19:00:00 PDT by Yogi Zimmerman Please click the below link to view image of tracing.
--- NOTE | 2025-02-12 07:25 | DVH ---
Exam: CT CT AB PEL WO CON-NO ORAL OR IV History: ABDOMINAL PAIN Comparison Study: None Technique: Multidetector spiral CT of the abdomen and pelvis was performed from lung bases to pubic s ymphysis. Imaging was performed without intravenous contrast. Coronal and sagittal multiplanar reform ats were obtained from the axial data set by the technologist. Radiation Dose : 1. Abdomen/Pelvis: CTDIvol 28.58 mGy, DLP 2581.4 mGy*cm. Findings: Evaluation of vasculature and solid organs is limited due to lack of intravenous contrast use. Lung Bases: Please see separate CT of the chest. Liver: The liver is normal in size. No focal lesions. Gallbladder and Biliary Tree: The gallbladder is unremarkable. No intrahepatic or extrahepatic biliar y ductal dilatation. Spleen: Unremarkable Pancreas: The pancreas is grossly unremarkable. Adrenal Glands: Unremarkable Kidneys: There is a 7 mm nonobstructive calculus in the right renal pelvis. Additional 3 mm nonobstr uctive stone in the upper pole of the right kidney. No hydronephrosis. GI tract: The stomach is grossly normal in appearance. No evidence of small bowel wall thickening or abnormal dilatation to suggest bowel obstruction. There is stool throughout the colon. Normal appendi x. Peritoneum/mesentery/retroperitoneum. No evidence of free intraperitoneal air. No ascites. No evidenc e of suspicious lymphadenopathy. Abdominal Wall: Unremarkable. Vasculature: The visualized abdominal aorta is normal in size and caliber. Evaluation of abdominal a nd pelvic vessels is limited due to lack of intravenous contrast. Urinary Bladder: Atwood catheter in the urinary bladder. Urinary bladder is contracted. Pelvic Organs: Unremarkable. Musculoskeletal: No aggressive focal bony lesions, acute fractures or dislocation. IMPRESSION: 1. 7mm nonobstructive calculus in the right renal pelvis. Additional 3 mm nonobstructive stone in th e upper pole of the right kidney. 2. Atwood catheter in the urinary bladder. Urinary bladder is contracted. 3. Stool throughout the colon may suggest constipation. 4. Please see separate CT chest same date.
[2025-02-12 07:30] VITALS: PULSE 100; RESP 29; O2SAT 94
--- NOTE | 2025-02-12 07:54 | DVH ---
Bilateral lower extremity venous duplex Clinical History: PE Comparison: None Technique: Duplex Doppler evaluation of the deep venous systems of both lower extremities from the common femora l veins to the popliteal veins including color Doppler and spectral/pulsed waveform analysis was perf ormed. Findings: RIGHT SIDE: The common femoral vein demonstrates appropriate compressibility and waveform variability . The great saphenous vein at the proximal thigh is compressible/patent. The femoral vein demonstra chinmay appropriate compressibility and waveform variability. The deep femoral vein demonstrates appropr iate compressibility and waveform variability. The popliteal vein demonstrates appropriate compressi bility and waveform variability. The tibioperoneal trunk is compressible. LEFT SIDE: The common femoral vein demonstrates appropriate compressibility and waveform variability. The great saphenous vein at the proximal thigh is compressible/patent. The femoral vein demonstrat es appropriate compressibility and waveform variability. The deep femoral vein demonstrates appropri ate compressibility and waveform variability. The popliteal vein demonstrates appropriate compressib ility and waveform variability. The tibioperoneal trunk is compressible. Impression: No right or left femoropopliteal venous thrombosis.
[2025-02-12] MEDS: AMIODARONE 360mg/200mL PREMIX 200 ML IV SCH (07:57)
[2025-02-12] MEDS: MANNITOL FTV 25% 12.5 GM/50 ML 100 ML IV ONE (08:30)
[2025-02-12] MEDS: LACTULOSE 20Gm/30ML SOLN PO ONE (08:43)
[2025-02-12] MEDS: TAMSULOSIN HYDROCHLORIDE 0.4 MG CAP PO ONE (08:43)
[2025-02-12] MEDS ORDERED: ENOXAPARIN SOD 40 MG/0.4 ML SYRINGE SC SCH (10:00)
[2025-02-12] MEDS: ENOXAPARIN SOD 100 MG/1 ML SYRINGE SC SCH (10:23)
--- NOTE | 2025-02-12 10:25 | DVHINCON2 ---
Date of service: Feb 12, 2025 Referring Physician Hospitalist Reason for Consultation kidney stone History of Present Illness History Source: Patient, RN Notes, MD Notes HPI 69 yo female hx of CVA and resides in [facility] care facility presents with ALOC. Incidental finding of non obstructing renal stones up to 7 mm. She is seen in bed 9 in no acute distress. Denies pain Past Medical History Central Nervous System: CVA Review of Systems Constitutional: No symptom reported Ears, Nose, & Throat: No symptom reported Eyes: No symptom reported Pulmonary/Respiratory: No symptom reported Cardiovascular: No symptom reported Gastrointestinal: No symptom reported Genitourinary: No symptom reported Musculoskeletal: No symptom reported Skin: No symptom reported Psychiatric: No symptom reported Endocrine: No symptom reported Hemotologic/Lymphatic: No symptom reported H&P Exam Vital Signs Vital Signs Date Time Temp Pulse Resp B/P (MAP) Pulse Ox O2 Delivery O2 Flow Rate FiO2 02/12/25 09:37 96 24 117/73 (88) 94 02/12/25 07:30 98.6 98.6 02/12/25 07:30 Simple Mask* 6 50 General Appeara: Well developed, Well nourished, Normal Appearance, Obese Neuro/Mental St: Alert, Oriented Appearance: Appropriate appearance, Appropriate insight Eye contact/ Speech: Cooperative, Good eye contact, Normal speech Skin Exam: Normal inspection, Normal color, Warm/dry Labs/Xrays [place] [address] Ph: [phone] DIAGNOSTIC IMAGING Diagnostic Imaging Report : [id number] Signed PATIENT: NAIMA PRINCE ACCT: [id number] UNIT: [id number] : 1955 LOC: OVERFLOW ROOM / BED: [address] [place] [address] / AGE / SEX: 69 / F ADM STATUS: ADM IN SERVICE 0146 ORDERING PHYSICIAN: GENNARO CASTILLO RESIDENT PROCEDURE(s): ABPL - CT AB PEL WO CON-NO ORAL OR IV REASON: ABDOMINAL PAIN ORDER NUMBER(s): [id number], ACCESSION NUMBER(s): [id number] Exam: CT CT AB PEL WO CON-NO ORAL OR IV History: ABDOMINAL PAIN Comparison Study: None Technique: Multidetector spiral CT of the abdomen and pelvis was performed from lung bases to pubic symphysis. Imaging was performed without intravenous co ntrast. Coronal and sagittal multiplanar reformats were obtained from the axial data set by the technologist. Radiation Dose : 1. Abdomen/Pelvis: CTDIvol 28.58 mGy, DLP 2581.4 mGy*cm. Findings: Evaluation of vasculature and solid organs is limited due to lack of intravenous contrast use. Lung Bases: Please see separate CT of the chest. Liver: The liver is normal in size. No focal lesions. Gallbladder and Biliary Tree: The gallbladder is unremarkable. No intrahepatic or extrahepatic biliary ductal dilatation. Spleen: Unremarkable Pancreas: The pancreas is grossly unremarkable. Adrenal Glands: Unremarkable Kidneys: There is a 7 mm nonobstructive calculus in the right renal pelvis. Additional 3 mm nonobstructive stone in the upper pole of the right kidney. No hydronephrosis. GI tract: The stomach is grossly normal in appearance. No evidence of small bowel wall thickening or abnormal dilatation to suggest bowel obstruction. There is stool throughout the colon. Normal appendix. Peritoneum/mesentery/retroperitoneum. No evidence of free intraperitoneal air. No ascites. No evidence of suspicious lymphadenopathy. Abdominal Wall: Unremarkable. Vasculature: The visualized abdominal aorta is normal in size and caliber. Evaluation of abdominal and pelvic vessels is limited due to lack of intravenous contrast. Urinary Bladder: Atwood catheter in the urinary bladder. Urinary bladder is contracted. Pelvic Organs: Unremarkable. Musculoskeletal: No aggressive focal bony lesions, acute fractures or disl ocation. IMPRESSION: 1. 7mm nonobstructive calculus in the right renal pelvis. Additional 3 mm nonobstructive stone in the upper pole of the right kidney. 2. Atwood catheter in the urinary bladder. Urinary bladder is contracted. 3. Stool throughout the colon may suggest constipation. 4. Please see separate CT chest same date. ATED BY: RADHA DE LEON MD DICTATED DATE/TIME: 02/12/25723 SIGNED BY: RADHA DEL EON MD SIGNED DATE/TIME: 02/12/25723 CC: Labs Test 02/12/25 08:10 02/12/25 03:20 02/12/25 01:15 02/12/25 01:09 Range/Units POC Glucose 309 H 70-106 mg/dl Ammonia < 10 L 11-32 umol/L Influenza Type A Antigen Negative Negative Influenza Type B Antigen Negative Negative SARS-CoV-2 Antigen (Rapid) Negative NEGATIVE Troponin I High Sensitivity 52 *H </=34 ng/L Test 02/12/25 00:30 02/11/25 23:12 02/11/25 21:43 Range/Units Urine Color Colorless Yellow Urine Clarity Turbid H Clear Urine pH 5.0 5.0-9.0 Urine Specific [place] 1.008 1.001-1.035 Urine Protein Negative Negative Urine Ketones Negative Negative Urine Blood 1+ H Negative /uL Urine Nitrite Negative Negative Urine Bilirubin Negative Negative Urine Urobilinogen Normal Negative mg/dL Urine Leukocyte Esterase 3+ Negative /uL Urine RBC 35 0 - 4 /hpf Urine Microscopic WBC 146 H 0-5 /HPF Urine Squamous Epithelial Cells None seen <5 /hpf Urine Bacteria Many H None Seen /hpf Urine Hyaline Casts Few 0 - 2 /lpf Urine Mucus Few None Seen Urine Yeast (Budding) Loaded None Seen /hpf Urine Glucose 2+ H Normal mg/dL Urine Opiates Screen Neg NEGATIVE Urine Fentanyl Screen Neg NEGATIVE Urine Barbiturates Screen Neg NEGATIVE Urine Phencyclidine Screen Neg NEGATIVE Urine Amphetamines Screen Neg NEGATIVE Urine Benzodiazepines Screen Neg NEGATIVE Urine Cocaine Screen Neg NEGATIVE Urine Cannabinoids Screen Neg NEGATIVE Lactic Acid Level 2.1 *H 0.4-2.0 mmol/L White Blood Count 10.4 4.4-10.8 10^3/uL Red Blood Count 4.89 4.0-5.20 10^6/uL Hemoglobin 12.8 12.2-16.2 g/dL Hematocrit 39.8 36.0-46.0 % Mean Corpuscular Volume 81.4 80.0-100.0 fL Mean Corpuscular Hemoglobin 26.2 L 28.0-32.0 pg Mean Corpuscular Hemoglobin Concent 32.2 32.0-36.0 g/dL Red Cell Distribution Width 14.6 H 11.8-14.3 % Platelet Count 292 140-450 10^3/uL Mean Platelet Volume 9.2 6.9-10.8 fL Neutrophils (%) (Auto) 84.9 H 37.0-80.0 % Lymphocytes (%) (Auto) 8.3 L 10.0-50.0 % Monocytes (%) (Auto) 5.9 0.0-12.0 % Eosinophils (%) (Auto) 0.0 0.0-7.0 % Basophils (%) (Auto) 0.9 0.0-2.0 % Neutrophils # (Auto) 8.8 H 1.6-8.6 10 ^3/uL Lymphocytes # (Auto) 0.9 0.4-5.4 10 ^3/uL Monocytes # (Auto) 0.6 0-1.3 10 ^3/uL Eosinophils # (Auto) 0 0-0.8 10 ^3/uL Basophils # (Auto) 0.1 0-0.2 10 ^3/uL Nucleated Red Blood Cells 0.1 % Blood Gas Specimen Type Arterial Blood Gas Sample Site Left radial Blood Gas Patient Temperature 37.0 Arterial Blood Date Drawn [id number] Arterial Blood pH 7.446 7.350-7.450 Arterial Blood Partial Pressure CO2 36.3 32.0-45.0 mmHg Arterial Blood Partial Pressure O2 48.9 *L 83.0-108.0 mmHg Arterial Blood HCO3 24.4 21.0-28.0 mmol/L Arterial Blood Oxygen Saturation 83.6 *L 94.0-98.0 % Arterial Blood Base Excess 0.7 -2.0-3.0 mmol/L Arterial Blood Oxyhemoglobin 82.1 L 94.0-98.0 % Arterial Blood Carboxyhemoglobin 1.4 0.5-1.5 % Arterial Blood Methemoglobin 0.4 0.0-1.5 % Julian Test Modified Blood Gas Total Hemoglobin 13.60 12.0-16.0 g/dL Blood Gas Liter Flow 0.00 Blood Gas Modality Room air Blood Gas Spontaneous Rate 18 FiO2 % 36.0 Specimen Drawn By Steven esparza Blood Gas Critical Value Read Back Yes Blood Gas Notified Whom aubree Barrow Blood Gas Notified Time [id number] Blood Gas Notified By Steven kim rt Sodium Level 135 L 136-145 mmol/L Potassium Level 5.0 3.5-5.1 mmol/L Chloride Level 100 98-107 mmol/L Carbon Dioxide Level 23 20-31 mmol/L Anion Gap 12 5-15 Blood Urea Nitrogen 22 9-23 mg/dL Creatinine 0.87 0.550-1.02 mg/dL Glomerular Filtration Rate Calc 73 >90 mL/min BUN/Creatinine Ratio 25.3 H 10.0-20.0 Serum Glucose 484 *H 74-106 mg/dL Calcium Level 9.5 8.7-10.4 mg/dL Magnesium Level 1.1 L 1.6-2.6 mg/dL Total Bilirubin 0.3 0.2-1.0 mg/dL Aspartate Amino Transferase (AST) < 8 L 13-40 U/L Alanine Aminotransferase (ALT) < 9 7-40 U/L Alkaline Phosphatase 96 46-116 U/L B-Type Natriuretic Peptide 553.40 0-100 pg/mL Total Protein 6.2 5.7-8.2 g/dL Albumin 3.7 3.2-4.8 g/dL Lipase 21 12-53 U/L Beta-Hydroxybutyric Acid 1.335 H < 0.4 mmol/L Thyroid Stimulating Hormone (TSH) 4.11 0.55-4.78 uIU/mL Plasma/Serum Blood Alcohol < 3.0 <10 mg/dL Assessment/Plan Problem List: (1) Calculus of kidney (2) Hyperglycemia (3) Pleural effusion (4) Altered mental status Plan right ESWL TBA Tuesday Plan discussed with: Patient, Other SHERI CARD NP Feb 12, 2025 10:25
--- NOTE | 2025-02-12 10:40 | DVHINCON2 ---
Date Seen: Feb 12, 2025 Referring Physician MD Shonda Reason for Consultation Chest pain/SOB History of Present Illness This is a 69-year-old female who [facility] with a chief complaint of an altered level of consciousness. At time of assessment the patient was found A&O x 3 and associated dysarthria given history of CVA. She denies any chest pain, palpit ations, diaphoresis, or syncopal events. Complains of right-sided abdominal pain and chest congestion reporting a productive cough. Denies nausea, vomiting, constipation, or diarrhea. She underwent multiple twelve lead electrocardiograms revealing an atrial fibrillation rhythm up to 180 bpm for which she was placed on an amiodarone drip with successful transition into a normal sinus rhythm. Denies any history of cardiac arrhythmias in the past. Serial troponin levels peaked at 55 ng/L. Significant medical history includes hospice care status prior to admission, cerebrovascular accident with associated dysarthria/right-sided hemiplegia/hemiparesis and mild cognitive impairment, hypertension, dyslipidemia, hypothyroidism, insulin-dependent diabetes mellitus, asthma, anxiety, and depression. Of note, per paperwork the patient is DNR status with comfort measures. Past Medical History Past medical history reviewed. No other significant than mentioned above. Allergies: Coded Allergies: NO KNOWN ALLERGIES (Unverified , 02/11/25) Current Medications Current Medications Medications (Trade) Dose Ordered Sig/Lindsey Route PRN Reason Start Time Stop Time Status Last Admin Sodium Chloride (Saline Lock Ns) 10 ml Q8HR IV 02/12/25 06:00 02/12/25 06:29 Ondansetron HCl (Zofran) 4 mg Q4HP PRN IV NAUSEA / VOMITING 02/12/25 01:15 Enoxaparin Sodium (Lovenox) 40 mg DAILY SC 02/12/25 10:00 02/12/25 01:28 DC Nitroglycerin (Ntrostat Sublingual) 0.4 mg Q5MINP PRN SL FOR CHEST PAIN 02/12/25 01:15 Diagnostic Test (Pha) (Accu-Chek Comfort Curve T) 1 strip IQ4HR 02/12/25 04:00 02/12/25 08:13 Insulin Human Regular (InsuLIN R) IQ4HR SC 02/12/25 04:00 02/12/25 08:14 Dextrose 50 ml UD PRN IV Blood Sugar LESS THAN 60 02/12/25 01:15 Piperacillin Sod/ Tazobactam Sod 100 ml @ 25 mls/hr Q8HR IV 02/12/25 14:00 Azithromycin 250 ml @ 125 mls/hr DAILY IV 02/13/25 10:00 Pantoprazole Sodium (Protonix) 40 mg DAILY IV 02/13/25 10:00 Magnesium Sulfate/ Dextrose 100 ml @ 100 mls/hr Q1H IV 02/12/25 01:30 02/12/25 03:29 DC 02/12/25 03:06 Furosemide (Lasix Injection) 40 mg BIDD IV 02/12/25 06:00 02/12/25 06:30 Enoxaparin Sodium (Lovenox) 90 mg Q12HR SC 02/12/25 10:00 Levothyroxine Sodium (Synthroid Tablet) 200 mcg QAM@0600 PO 02/12/25 06:00 Lactulose 30 ml BID PO 02/12/25 22:00 Tamsulosin HCl (Flomax) 0.4 mg QPM PO 02/12/25 18:00 Vital Signs Vital Signs Date Time Temp Pulse Resp B/P (MAP) Pulse Ox O2 Delivery O2 Flow Rate FiO2 02/12/25 09:37 96 24 117/73 (88) 94 02/12/25 07:30 98.6 98.6 02/12/25 07:30 Simple Mask* 6 50 Physical Exam General Appearance: Cooperative. Well developed. Well nourished. In no acute distress Head Exam: Normal inspection Neck Exam: Normal inspection. Non-tender. Normal alignment Pulmonary/Respiratory: Chest non-tender. Clear bilateral breath sounds Cardiovascular/Chest: Regular rate and rhythm. S1, S2. No murmurs. No JVD. Peripheral Pulses: 2+ Radial (R). 2+ Radial (L). 2+ Pedal (R). 2+ Pedal (L) Abdominal Exam: Normal bowel sounds. Soft. Nontender. No hepatospenomegaly. No masses Ankle Exam: Negative ankle edema Lower extremities: Negative lower extremity edema Neuro/Mental Status: A&O x3. Mild cognitive impairment. +dysarthria. Right- sided hemiparesis/hemiplegia Thoughts/Psych: Normal thought pattern. Appearance: In no acute distress Skin Exam: Normal inspection. Normal color. Warm. Dry Labs/Diagnostic Data Labs Test 02/12/25 08:10 02/12/25 03:20 02/12/25 01:15 02/12/25 01:09 Range/Units POC Glucose 309 H 70-106 mg/dl Ammonia < 10 L 11-32 umol/L Influenza Type A Antigen Negative Negative Influenza Type B Antigen Negative Negative SARS-CoV-2 Antigen (Rapid) Negative NEGATIVE Troponin I High Sensitivity 52 *H </=34 ng/L Test 02/12/25 00:30 02/11/25 23:12 02/11/25 21:43 Range/Units Urine Color Colorless Yellow Urine Clarity Turbid H Clear Urine pH 5.0 5.0-9.0 Urine Specific [place] 1.008 1.001-1.035 Urine Protein Negative Negative Urine Ketones Negative Negative Urine Blood 1+ H Negative /uL Urine Nitrite Negative Negative Urine Bilirubin Negative Negative Urine Urobilinogen Normal Negative mg/dL Urine Leukocyte Esterase 3+ Negative /uL Urine RBC 35 0 - 4 /hpf Urine Microscopic WBC 146 H 0-5 /HPF Urine Squamous Epithelial Cells None seen <5 /hpf Urine Bacteria Many H None Seen /hpf Urine Hyaline Casts Few 0 - 2 /lpf Urine Mucus Few None Seen Urine Yeast (Budding) Loaded None Seen /hpf Urine Glucose 2+ H Normal mg/dL Urine Opiates Screen Neg NEGATIVE Urine Fentanyl Screen Neg NEGATIVE Urine Barbiturates Screen Neg NEGATIVE Urine Phencyclidine Screen Neg NEGATIVE Urine Amphetamines Screen Neg NEGATIVE Urine Benzodiazepines Screen Neg NEGATIVE Urine Cocaine Screen Neg NEGATIVE Urine Cannabinoids Screen Neg NEGATIVE Lactic Acid Level 2.1 *H 0.4-2.0 mmol/L White Blood Count 10.4 4.4-10.8 10^3/uL Red Blood Count 4.89 4.0-5.20 10^6/uL Hemoglobin 12.8 12.2-16.2 g/dL Hematocrit 39.8 36.0-46.0 % Mean Corpuscular Volume 81.4 80.0-100.0 fL Mean Corpuscular Hemoglobin 26.2 L 28.0-32.0 pg Mean Corpuscular Hemoglobin Concent 32.2 32.0-36.0 g/dL Red Cell Distribution Width 14.6 H 11.8-14.3 % Platelet Count 292 140-450 10^3/uL Mean Platelet Volume 9.2 6.9-10.8 fL Neutrophils (%) (Auto) 84.9 H 37.0-80.0 % Lymphocytes (%) (Auto) 8.3 L 10.0-50.0 % Monocytes (%) (Auto) 5.9 0.0-12.0 % Eosinophils (%) (Auto) 0.0 0.0-7.0 % Basophils (%) (Auto) 0.9 0.0-2.0 % Neutrophils # (Auto) 8.8 H 1.6-8.6 10 ^3/uL Lymphocytes # (Auto) 0.9 0.4-5.4 10 ^3/uL Monocytes # (Auto) 0.6 0-1.3 10 ^3/uL Eosinophils # (Auto) 0 0-0.8 10 ^3/uL Basophils # (Auto) 0.1 0-0.2 10 ^3/uL Nucleated Red Blood Cells 0.1 % Blood Gas Specimen Type Arterial Blood Gas Sample Site Left radial Blood Gas Patient Temperature 37.0 Arterial Blood Date Drawn [id number] Arterial Blood pH 7.446 7.350-7.450 Arterial Blood Partial Pressure CO2 36.3 32.0-45.0 mmHg Arterial Blood Partial Pressure O2 48.9 *L 83.0-108.0 mmHg Arterial Blood HCO3 24.4 21.0-28.0 mmol/L Arterial Blood Oxygen Saturation 83.6 *L 94.0-98.0 % Arterial Blood Base Excess 0.7 -2.0-3.0 mmol/L Arterial Blood Oxyhemoglobin 82.1 L 94.0-98.0 % Arterial Blood Carboxyhemoglobin 1.4 0.5-1.5 % Arterial Blood Methemoglobin 0.4 0.0-1.5 % Julian Test Modified Blood Gas Total Hemoglobin 13.60 12.0-16.0 g/dL Blood Gas Liter Flow 0.00 Blood Gas Modality Room air Blood Gas Spontaneous Rate 18 FiO2 % 36.0 Specimen Drawn By Steven esparza Blood Gas Critical Value Read Back Yes Blood Gas Notified Whom aubree Barrow Blood Gas Notified Time [id number] Blood Gas Notified By Setven esparza Sodium Level 135 L 136-145 mmol/L Potassium Level 5.0 3.5-5.1 mmol/L Chloride Level 100 98-107 mmol/L Carbon Dioxide Level 23 20-31 mmol/L Anion Gap 12 5-15 Blood Urea Nitrogen 22 9-23 mg/dL Creatinine 0.87 0.550-1.02 mg/dL Glomerular Filtration Rate Calc 73 >90 mL/min BUN/Creatinine Ratio 25.3 H 10.0-20.0 Serum Glucose 484 *H 74-106 mg/dL Calcium Level 9.5 8.7-10.4 mg/dL Magnesium Level 1.1 L 1.6-2.6 mg/dL Total Bilirubin 0.3 0.2-1.0 mg/dL Aspartate Amino Transferase (AST) < 8 L 13-40 U/L Alanine Aminotransferase (ALT) < 9 7-40 U/L Alkaline Phosphatase 96 46-116 U/L B-Type Natriuretic Peptide 553.40 0-100 pg/mL Total Protein 6.2 5.7-8.2 g/dL Albumin 3.7 3.2-4.8 g/dL Lipase 21 12-53 U/L Beta-Hydroxybutyric Acid 1.335 H < 0.4 mmol/L Thyroid Stimulating Hormone (TSH) 4.11 0.55-4.78 uIU/mL Plasma/Serum Blood Alcohol < 3.0 <10 mg/dL Assessment Acute on chronic decompensated HFpEF, NYHA Class III, newly diagnosed Paroxysmal atrial fibrillation with rapid ventricular rate (Stage IIIa), now NSR, newly diagnosed Acute hypoxic respiratory failure Acute pulmonary embolism Bilateral pleural effusions, small Pneumonia Right nephrolithiasis Insulin-dependent diabetes mellitus with hyperglycemia NSTEMI, likely type 2 secondary to above Hx CVA with dysarthria/right-sided hemiplegia/hemiparesis Recent hospice care status prior to admission Obesity Plan/Recommendation (Dr. Curry) We will continue further cardiac evaluation with a transthoracic echocardiogram to evaluate for structural heart disease. Preliminary revealed mildly reduced EF with no signs of right heart strain. Initiate GDMT for CHF and uptitrate as tolerated. Continue preload and afterload reduction, strict I&Os, daily weight, and fluid restrictions. Continue therapeutic Lovenox and transition to DOAC when appropriate ([id number] Score 7 points, HAS-BLED Score 2 points). Patient will need therapeutic DOAC therapy for PE/A-fib. Transition from amiodarone drip to oral route BID. Replete electrolytes as necessary, K>4 and Mg>2. Obtain a head CT given ALOC on admission with history of CVA. Repeat blood work today. Monitor ECG changes closely and notify accordingly. There is no evidence of right heart strain and given recent hospice care we will continue conservative management with no invasive cardiac procedures suggested at this time. Thank you for allowing us to participate in this patient's care. Please call if you have any questions or concerns. Critical care time: 45 min. This medical document was created using an electronic medical record system with voice recognition software and computerized dictation system. Although this document has been carefully reviewed, there might still be some phonetic and typographical errors. Occasional wrong-word or ``sound-alike substitutions may have occurred due to the inherent limitations of voice recognition software. These areas are purely typographical due to imperfections of the software programs and do not reflect any compromise in the patient's medical care. Please read the chart carefully and recognize, using context, where these substitutions have occurred. Plan discussed with: Patient, Other NYHA Physical activity limitations: Class3(Marked) ordinary Date of Service: Feb 12, 2025 Billing Provider: NEAL AVITIA Cardiology Common Codes: [id number] CARE 30-74 MIN NEAL AVITIA Feb 12, 2025 10:40
[2025-02-12 10:48] LABS: Hematocrit 36.7 % (36.0-46.0); Hemoglobin 12.0 g/dL (12.2-16.2); Mean Corpuscular Hemoglobin 26.5 pg (28.0-32.0); Mean Corpuscular Volume 80.9 fL (80.0-100.0); Nucleated Red Blood Cells % 0.1 %
[2025-02-12 10:59] LABS: Alanine Aminotransferase < 9 U/L (7-40); Albumin 3.6 g/dL (3.2-4.8); Alkaline Phosphatase 85 U/L (46-116); Anion Gap 12 (5-15); BUN/Creatinine Ratio 28.2 (10.0-20.0); Bilirubin, Total 0.3 mg/dL (0.2-1.0); Blood Urea Nitrogen 20 mg/dL (9-23); Calcium 9.1 mg/dL (8.7-10.4); Carbon Dioxide 24 mmol/L (20-31); Chloride 101 mmol/L (98-107); Magnesium 3.0 mg/dL (1.6-2.6); Potassium 4.2 mmol/L (3.5-5.1); Sodium 137 mmol/L (136-145); Total Protein 6.2 g/dL (5.7-8.2)
[2025-02-12 10:59] LABS: INR 1.08 (0.9-1.15); Prothrombin Time 11.4 sec (9.3-11.8)
[2025-02-12 11:01] LABS: Glucose 428 mg/dL (74-106)
--- NOTE | 2025-02-12 11:05 | DVH ---
EXAM: CT HEAD WITHOUT CONTRAST HISTORY: ALOC on admission COMPARISON: None TECHNIQUE: Noncontrast axial CT images of the head were performed. Sagittal and coronal reformatted i mages were obtained. This CT exam was performed using 1 or more of the following dose reduction techn iques: Automated exposure control, adjustment of the mA and/or kv according to patient size, or the u se of iterative reconstruction techniques. Radiation Dose: CTDI volume is 56.38 mGy. Dose-length product is 1109.35 mGy*cm FINDINGS: There is a large old left MCA distribution infarct. There is an old right frontal lobe infarct. There are old lacunar infarcts of the right caudate head, left basal ganglia, left thalamus, and left renée and cerebral peduncle. No intracranial hemorrhage, mass, midline shift, hydrocephalus, or evidence o f acute large vessel infarct. There are thick atherosclerotic calcifications of the cavernous ICAs an d terminal vertebral arteries. There are mucous retention cysts in the bilateral ethmoid sinuses. The bilateral mastoid air cells and middle ear spaces are clear. There are chronic appearing mildly disp laced nasal bone fractures. There is hyperostosis frontalis interna. No cranial fracture or scalp jose juan ma. All of the maxillary teeth are absent. IMPRESSION: 1. No acute intracranial process. 2. Ischemic changes including old right frontal lobe infarct and old large left MCA distribution infa rct. 3. Bilateral ethmoid sinus disease.
[2025-02-12 11:11] LABS: Triglycerides 115 mg/dL (< 150)
[2025-02-12 11:13] LABS: Cholesterol 99 mg/dL (< 200)
[2025-02-12] MEDS: AMIODARONE HCL 200 MG TAB PO ONE (11:14)
[2025-02-12 11:15] LABS: HDL Cholesterol 35 mg/dL (40-59)
[2025-02-12] MEDS: PIPERACILLIN-TAZOB 3.375GM 100 ML IV SCH (13:52)
--- NOTE | 2025-02-12 14:59 | DVHPN2 ---
Reviewed: Care Plan, H&P, Labs, Medications, Previous Orders, Radiology Changes from previous H/P or p: No Changes Objective Vitals Vital Signs Date Time Temp Pulse Resp B/P (MAP) Pulse Ox O2 Delivery O2 Flow Rate FiO2 02/12/25 14:15 97.4 89 25 109/47 (67) 95 97.4 02/12/25 07:30 Simple Mask* 6 50 Intake/Output Intake and Output 02/12/25 07:00 Intake Total 1658.32 ml Balance 1658.32 ml Intake IV Total 1658.32 ml Medications Current Medications Medications Dose Ordered Sig/Lindsey Route Start Time Stop Time Status Last Admin Dose Admin Sodium Chloride 10 ml Q8HR IV 02/12/25 06:00 02/12/25 13:52 10 ML Ondansetron HCl 4 mg Q4HP PRN IV 02/12/25 01:15 Nitroglycerin 0.4 mg Q5MINP PRN SL 02/12/25 01:15 Diagnostic Test (Pha) 1 strip IQ4HR 02/12/25 04:00 02/12/25 11:58 1 STRIP Insulin Human Regular IQ4HR SC 02/12/25 04:00 02/12/25 08:14 16 UNITS Dextrose 50 ml UD PRN IV 02/12/25 01:15 Piperacillin Sod/ Tazobactam Sod 100 ml @ 25 mls/hr Q8HR IV 02/12/25 14:00 02/12/25 13:52 25 MLS/HR Azithromycin 250 ml @ 125 mls/hr DAILY IV 02/13/25 10:00 Pantoprazole Sodium 40 mg DAILY IV 02/13/25 10:00 Furosemide 40 mg BIDD IV 02/12/25 06:00 02/12/25 06:30 40 MG Enoxaparin Sodium 90 mg Q12HR SC 02/12/25 10:00 02/12/25 10:23 90 MG Levothyroxine Sodium 200 mcg QAM@0600 PO 02/12/25 06:00 Lactulose 30 ml BID PO 02/12/25 22:00 Tamsulosin HCl 0.4 mg QPM PO 02/12/25 18:00 Amiodarone HCl 200 mg Q12HR PO 02/12/25 22:00 Empaglifozin 10 mg DAILY PO 02/13/25 10:00 Sacubitril/ Valsartan 0.5 tab BID PO 02/12/25 22:00 Metoprolol Tartrate 12.5 mg BID PO 02/12/25 22:00 Laboratory Results Laboratory Tests 02/12/25 03:20 02/12/25 10:30 Chemistry Test 02/11/25 21:43 02/12/25 03:20 Albumin 3.7 g/dL (3.2-4.8) 3.6 g/dL (3.2-4.8) Calcium Level 9.5 mg/dL (8.7-10.4) 9.1 mg/dL (8.7-10.4) Magnesium Level 1.1 mg/dL (1.6-2.6) L 3.0 mg/dL (1.6-2.6) #H Total Protein 6.2 g/dL (5.7-8.2) 6.2 g/dL (5.7-8.2) Coagulation Test 02/12/25 10:30 Prothrombin Time 11.4 sec (9.3-11.8) Prothrombin Time INR 1.08 (0.9-1.15) Lipid panel Test 02/11/25 21:43 02/12/25 03:20 Lipase 21 U/L (12-53) Cholesterol Level 99 mg/dL (< 200) HDL Cholesterol 35 mg/dL (40-59) L Triglycerides Level 115 mg/dL (< 150) Cardiac Markers Test 02/11/25 21:43 B-Type Natriuretic Peptide 553.40 pg/mL (0-100) LFT Test 02/11/25 21:43 02/12/25 03:20 Alanine Aminotransferase (ALT) < 9 U/L (7-40) < 9 U/L (7-40) Alkaline Phosphatase 96 U/L (46-116) 85 U/L (46-116) Aspartate Amino Transferase (AST) < 8 U/L (13-40) L 8 U/L (13-40) L Total Bilirubin 0.3 mg/dL (0.2-1.0) 0.3 mg/dL (0.2-1.0) HgA1c, TSH Test 02/11/25 21:43 02/12/25 10:30 Thyroid Stimulating Hormone (TSH) 4.11 uIU/mL (0.55-4.78) Hemoglobin A1c 12.0 % A1C (<5.7) H Urinalysis Test 02/12/25 00:30 Urine Color Colorless (Yellow) Urine Clarity Turbid (Clear) H Urine pH 5.0 (5.0-9.0) Urine Specific [place] 1.008 (1.001-1.035) Urine Protein Negative (Negative) Urine Ketones Negative (Negative) Urine Blood 1+ /uL (Negative) H Urine Nitrite Negative (Negative) Urine Bilirubin Negative (Negative) Urine Urobilinogen Normal mg/dL (Negative) Urine Leukocyte Esterase 3+ /uL (Negative) Urine RBC 35 /hpf (0 - 4) Urine Microscopic WBC 146 /HPF (0-5) H Urine Squamous Epithelial Cells None seen /hpf (<5) Urine Bacteria Many /hpf (None Seen) H Urine Hyaline Casts Few /lpf (0 - 2) Urine Mucus Few (None Seen) Urine Yeast (Budding) Loaded /hpf (None Seen) Urine Glucose 2+ mg/dL (Normal) H Blood Gas Results Test 02/11/25 21:43 Arterial Blood pH 7.446 (7.350-7.450) FiO2 % 36.0 Labs and/or images reviewed: Labs reviewed by me, Image(s) reviewed by me Assessment/Plan Assessment/Plan Septic Shock secondary to acute urinary tract infection: Blood cultures urine cultures Acute on chronic decompensated HFpEF, NYHA Class III, newly diagnosed, metoprolol Entresto Jardiance Lasix, cardiology consult by Dr. Curry appreciated Paroxysmal atrial fibrillation with rapid ventricular rate (Stage IIIa), now NSR, newly diagnosed treated with amiodarone drip Acute hypoxic respiratory failure Acute left pulmonary embolism: Lovenox therapeutic dose Bilateral pleural effusions, small Left upper lobe community-acquired pneumonia Gram-positive versus Gram-negative, Zosyn, azithromycin Right nephrolithiasis Insulin-dependent diabetes mellitus with hyperglycemia NSTEMI, likely type 2 secondary to above Hx CVA with dysarthria/right-sided hemiplegia/hemiparesis Hospice revoked Severe malnutrition Time Spent 70 minutes Advanced care planning time 20 minutes Patient is full code Plan discussed with: Patient Date of Service: Feb 12, 2025 Billing Provider: JESSE WOO MD Common Visit Codes: [id number] CARE 30-74 MIN JESSE WOO MD Feb 12, 2025 14:59
[2025-02-12] MEDS: TAMSULOSIN HYDROCHLORIDE 0.4 MG CAP PO SCH (18:07)
[2025-02-12 19:00] VITALS: BP 108/78; PULSE 86; RESP 21; O2SAT 94
[2025-02-12 20:00] VITALS: BP 119/67; PULSE 83; PULSE 85; PULSE 86; RESP 21; TEMP 97.6; O2SAT 93; O2SAT 94
[2025-02-12 21:00] VITALS: BP 131/65; PULSE 94; RESP 15; O2SAT 93
[2025-02-12 22:00] VITALS: BP_SYST 106; BP_SYST 110; BP_DIAS 62; BP_DIAS 82; PULSE 91; PULSE 92; RESP 15; RESP 20; RESP 22; O2SAT 91; O2SAT 92
[2025-02-12] MEDS: AMIODARONE HCL 200 MG TAB PO SCH (22:03)
[2025-02-12] MEDS: LACTULOSE 20Gm/30ML SOLN PO SCH (22:03)
[2025-02-12] MEDS: SACUBITRIL-VALSARTAN 24mg/26mg TAB PO SCH (22:03)
--- NOTE | 2025-02-12 22:55 | DVHINCON2 ---
Date Seen: Feb 12, 2025 Referring Physician MD Shonda Reason for Consultation Chest pain/SOB History of Present Illness This is a 69-year-old female with a PMH of hospice care status prior to admission, cerebrovascular accident with associated dysarthria/right-sided hemiplegia/hemiparesis and mild cognitive impairment, hypertension, dyslipidemia, hypothyroidism, insulin-dependent diabetes mellitus, asthma, anxiety, and depression who presented to the ED by EMS from [facility] with a complaint of altered level of consciousness. At time of assessment the patient was found A&O x 3 and associated dysarthria given history of CVA. She denies any chest pain, palpitations, diaphoresis, or syncopal events. Complains of right-sided abdominal pain and chest congestion reporting a productive cough. Denies nausea, vomiting, constipation, or diarrhea. She underwent multiple twelve lead electrocardiograms revealing an atrial fibrillation rhythm up to 180 bpm for which she was placed on an amiodarone drip with successful transition into a normal sinus rhythm. Denies any history of cardiac arrhythmias in the past. Serial troponin levels peaked at 55 ng/L. Of note, per paperwork the patient is DNR status with comfort measures. Patient was admitted to the hospital. I am asked to consult on this patient. Past Medical History Past medical history reviewed. No other significant than mentioned above. Allergies: Coded Allergies: NO KNOWN ALLERGIES (Unverified , 02/11/25) Current Medications Current Medications Medications (Trade) Dose Ordered Sig/Lindsey Route PRN Reason Start Time Stop Time Status Last Admin Sodium Chloride (Saline Lock Ns) 10 ml Q8HR IV 02/12/25 06:00 02/12/25 22:00 Ondansetron HCl (Zofran) 4 mg Q4HP PRN IV NAUSEA / VOMITING 02/12/25 01:15 Enoxaparin Sodium (Lovenox) 40 mg DAILY SC 02/12/25 10:00 02/12/25 01:28 DC Nitroglycerin (Ntrostat Sublingual) 0.4 mg Q5MINP PRN SL FOR CHEST PAIN 02/12/25 01:15 Diagnostic Test (Pha) (Accu-Chek Comfort Curve T) 1 strip IQ4HR 02/12/25 04:00 02/12/25 19:57 Insulin Human Regular (InsuLIN R) IQ4HR SC 02/12/25 04:00 02/12/25 08:14 Dextrose 50 ml UD PRN IV Blood Sugar LESS THAN 60 02/12/25 01:15 Piperacillin Sod/ Tazobactam Sod 100 ml @ 25 mls/hr Q8HR IV 02/12/25 14:00 02/12/25 22:02 Azithromycin 250 ml @ 125 mls/hr DAILY IV 02/13/25 10:00 Pantoprazole Sodium (Protonix) 40 mg DAILY IV 02/13/25 10:00 Magnesium Sulfate/ Dextrose 100 ml @ 100 mls/hr Q1H IV 02/12/25 01:30 02/12/25 03:29 DC 02/12/25 03:06 Furosemide (Lasix Injection) 40 mg BIDD IV 02/12/25 06:00 02/12/25 18:08 Enoxaparin Sodium (Lovenox) 90 mg Q12HR SC 02/12/25 10:00 02/12/25 22:05 Levothyroxine Sodium (Synthroid Tablet) 200 mcg QAM@0600 PO 02/12/25 06:00 Lactulose 30 ml BID PO 02/12/25 22:00 02/12/25 22:03 Tamsulosin HCl (Flomax) 0.4 mg QPM PO 02/12/25 18:00 02/12/25 18:07 Amiodarone HCl (Cordarone Tablet) 200 mg Q12HR PO 02/12/25 22:00 02/12/25 22:03 Empaglifozin (Jardiance) 10 mg DAILY PO 02/13/25 10:00 Sacubitril/ Valsartan (Entresto 24-26 Mg tab) 0.5 tab BID PO 02/12/25 22:00 02/12/25 22:03 Metoprolol Tartrate (Lopressor Tablet) 12.5 mg BID PO 02/12/25 22:00 Review of Systems Patient is a poor historian and details of the other system could not be obtained Vital Signs Vital Signs Date Time Temp Pulse Resp B/P (MAP) Pulse Ox O2 Delivery O2 Flow Rate FiO2 02/12/25 22:00 91 15 110/82 (91) 91 02/12/25 22:00 Simple Mask* 6 50 02/12/25 20:00 97.6 97.6 Physical Exam GENERAL: No acute distress. EYES: PERRL, EOMI. Anicteric. HENT: Moist mucous membranes. LUNGS: Clear to auscultation bilaterally. CARDIOVASCULAR: Regular rate and rhythm. ABDOMEN: Soft, non-tender and non-distended. EXTREMITIES: No edema. NEUROLOGIC: Mild cognitive impairment. Dysarthria. Right-sided hemiparesis /hemiplegia SKIN: Warm, dry. Labs/Diagnostic Data Labs Test 02/12/25 19:57 02/12/25 10:30 02/12/25 03:20 02/12/25 01:15 Range/Units POC Glucose 101 70-106 mg/dl White Blood Count 8.4 4.4-10.8 10^3/uL Red Blood Count 4.53 4.0-5.20 10^6/uL Hemoglobin 12.0 L 12.2-16.2 g/dL Hematocrit 36.7 36.0-46.0 % Mean Corpuscular Volume 80.9 80.0-100.0 fL Mean Corpuscular Hemoglobin 26.5 L 28.0-32.0 pg Mean Corpuscular Hemoglobin Concent 32.7 32.0-36.0 g/dL Red Cell Distribution Width 14.4 H 11.8-14.3 % Platelet Count 270 140-450 10^3/uL Mean Platelet Volume 8.3 6.9-10.8 fL Neutrophils (%) (Auto) 72.1 37.0-80.0 % Lymphocytes (%) (Auto) 19.4 10.0-50.0 % Monocytes (%) (Auto) 7.1 0.0-12.0 % Eosinophils (%) (Auto) 0.6 0.0-7.0 % Basophils (%) (Auto) 0.8 0.0-2.0 % Neutrophils # (Auto) 6.0 1.6-8.6 10 ^3/uL Lymphocytes # (Auto) 1.6 0.4-5.4 10 ^3/uL Monocytes # (Auto) 0.6 0-1.3 10 ^3/uL Eosinophils # (Auto) 0.1 0-0.8 10 ^3/uL Basophils # (Auto) 0.1 0-0.2 10 ^3/uL Nucleated Red Blood Cells 0.1 % Prothrombin Time 11.4 9.3-11.8 sec Prothrombin Time INR 1.08 0.9-1.15 Hemoglobin A1c 12.0 H <5.7 % A1C Sodium Level 137 136-145 mmol/L Potassium Level 4.2 3.5-5.1 mmol/L Chloride Level 101 98-107 mmol/L Carbon Dioxide Level 24 20-31 mmol/L Anion Gap 12 5-15 Blood Urea Nitrogen 20 9-23 mg/dL Creatinine 0.71 0.550-1.02 mg/dL Glomerular Filtration Rate Calc 93 >90 mL/min BUN/Creatinine Ratio 28.2 H 10.0-20.0 Serum Glucose 428 *H 74-106 mg/dL Calcium Level 9.1 8.7-10.4 mg/dL Magnesium Level 3.0 #H 1.6-2.6 mg/dL Total Bilirubin 0.3 0.2-1.0 mg/dL Aspartate Amino Transferase (AST) 8 L 13-40 U/L Alanine Aminotransferase (ALT) < 9 7-40 U/L Alkaline Phosphatase 85 46-116 U/L Ammonia < 10 L 11-32 umol/L Total Protein 6.2 5.7-8.2 g/dL Albumin 3.6 3.2-4.8 g/dL Triglycerides Level 115 < 150 mg/dL Cholesterol Level 99 < 200 mg/dL LDL Cholesterol 44 < 100 mg/dL HDL Cholesterol 35 L 40-59 mg/dL Influenza Type A Antigen Negative Negative Influenza Type B Antigen Negative Negative SARS-CoV-2 Antigen (Rapid) Negative NEGATIVE Test 02/12/25 01:09 02/12/25 00:30 02/11/25 23:12 02/11/25 21:43 Range/Units Troponin I High Sensitivity 52 *H </=34 ng/L Urine Color Colorless Yellow Urine Clarity Turbid H Clear Urine pH 5.0 5.0-9.0 Urine Specific [place] 1.008 1.001-1.035 Urine Protein Negative Negative Urine Ketones Negative Negative Urine Blood 1+ H Negative /uL Urine Nitrite Negative Negative Urine Bilirubin Negative Negative Urine Urobilinogen Normal Negative mg/dL Urine Leukocyte Esterase 3+ Negative /uL Urine RBC 35 0 - 4 /hpf Urine Microscopic WBC 146 H 0-5 /HPF Urine Squamous Epithelial Cells None seen <5 /hpf Urine Bacteria Many H None Seen /hpf Urine Hyaline Casts Few 0 - 2 /lpf Urine Mucus Few None Seen Urine Yeast (Budding) Loaded None Seen /hpf Urine Glucose 2+ H Normal mg/dL Urine Opiates Screen Neg NEGATIVE Urine Fentanyl Screen Neg NEGATIVE Urine Barbiturates Screen Neg NEGATIVE Urine Phencyclidine Screen Neg NEGATIVE Urine Amphetamines Screen Neg NEGATIVE Urine Benzodiazepines Screen Neg NEGATIVE Urine Cocaine Screen Neg NEGATIVE Urine Cannabinoids Screen Neg NEGATIVE Lactic Acid Level 2.1 *H 0.4-2.0 mmol/L Blood Gas Specimen Type Arterial Blood Gas Sample Site Left radial Blood Gas Patient Temperature 37.0 Arterial Blood Date Drawn [id number] Arterial Blood pH 7.446 7.350-7.450 Arterial Blood Partial Pressure CO2 36.3 32.0-45.0 mmHg Arterial Blood Partial Pressure O2 48.9 *L 83.0-108.0 mmHg Arterial Blood HCO3 24.4 21.0-28.0 mmol/L Arterial Blood Oxygen Saturation 83.6 *L 94.0-98.0 % Arterial Blood Base Excess 0.7 -2.0-3.0 mmol/L Arterial Blood Oxyhemoglobin 82.1 L 94.0-98.0 % Arterial Blood Carboxyhemoglobin 1.4 0.5-1.5 % Arterial Blood Methemoglobin 0.4 0.0-1.5 % Julian Test Modified Blood Gas Total Hemoglobin 13.60 12.0-16.0 g/dL Blood Gas Liter Flow 0.00 Blood Gas Modality Room air Blood Gas Spontaneous Rate 18 FiO2 % 36.0 Specimen Drawn By Steven esparza Blood Gas Critical Value Read Back Yes Blood Gas Notified Whom aubree Barrow Blood Gas Notified Time [id number] Blood Gas Notified By Steven kim rt B-Type Natriuretic Peptide 553.40 0-100 pg/mL Lipase 21 12-53 U/L Beta-Hydroxybutyric Acid 1.335 H < 0.4 mmol/L Thyroid Stimulating Hormone (TSH) 4.11 0.55-4.78 uIU/mL Plasma/Serum Blood Alcohol < 3.0 <10 mg/dL Microbiology Date/Time Source Procedure Growth Status 02/11/25 21:43 Blood Blood Culture - Preliminary NO GROWTH AFTER 24 HOURS OF INCUBATION. Resulted Assessment Acute on chronic decompensated HFpEF, NYHA Class III, newly diagnosed. Paroxysmal atrial fibrillation with rapid ventricular rate (Stage IIIa), now NSR, newly diagnosed. Acute hypoxic respiratory failure. Acute pulmonary embolism. Bilateral pleural effusions, small. Pneumonia. Right nephrolithiasis. Insulin-dependent diabetes mellitus with hyperglycemia. NSTEMI, likely type 2 secondary to above. History of CVA with dysarthria/right-sided hemiplegia/hemiparesis. Recent hospice care status prior to admission. Obesity. Plan/Recommendation I agree with your ongoing assessment and care of plan. Patient has been seen by Krissy Mauricio NP on my behalf. We have discussed the plan with the patient. Telemetry reviewed. We will continue further cardiac evaluation with a transthoracic echocardiogram to evaluate for structural heart disease. Preliminary revealed mildly reduced EF with no signs of right heart strain. Initiate GDMT for CHF and uptitrate as tolerated. Continue preload and afterload reduction, strict I&Os, daily weight, and fluid restrictions. Continue therapeutic Lovenox and transition to DOAC when appropriate ([id number]- VASc Score 7 points, HAS-BLED Score 2 points). Patient will need therapeutic DOAC therapy for PE/A-fib. Transition from amiodarone drip to oral route BID. Replete electrolytes as necessary, K>4 and Mg>2. Obtain a head CT given ALOC on admission with history of CVA. Repeat blood work today. Monitor ECG changes closely and notify accordingly. There is no evidence of right heart strain and given recent hospice care we will continue conservative management with no invasive cardiac procedures suggested at this time. Additional plan as per the hospital course. Plan discussed with: Patient NYHA Physical activity limitations: Class3(Marked) ordinary Date of Service: Feb 12, 2025 Billing Provider: XOCHITL WISEMAN MD Cardiology Common Codes: [id number] HOSPITAL CARE XOCHITL WISEMAN MD Feb 12, 2025 22:55
[2025-02-12] MEDS: METOPROLOL TARTRATE 25 MG TAB PO SCH (23:05)
--- NOTE | 2025-02-12 23:49 | DVHINCON2 ---
Date of service: Feb 12, 2025 Referring Physician Jesus Lee MD [facility] Reason for Consultation Acute hypoxic respiratory failure, pulmonary embolism, pleural effusion, pneum onia, pulmonary edema and bronchiectasis. History of Present Illness A 69-year-old woman, hospice revoked, with PMHx of asthma, hypertension, DM type 2, CVA with right-sided residual deficits, hyperlipidemia, hypothyroidism, MDD, and anxiety who presents to ED today from [facility] due to altered mental status. Patient is a poor historian. She became altered and confused after she had insulin and morphine at [facility], and EMS was called. Blood sugars were found to be 424, she was noted to be tachycardic with atrial fibrillation with a rate of 179. Later on patient's mental status improved but still with some confusion. Patient reported feeling short of breath at the facility. She also c/o abdominal pain, severe, intermittent, 10/10, ongoing for a while. On arrival to ED, her saturation was 82-86% in room air. Initial lab workup revealed neutrophil 84.9%, blood sugar 448, lactic acid 2.1, magnesium 1.1, troponin I 55, BNP 553, lipase 21, beta hydroxybutyrate acid 1.3, TSH 4.0, patient tested negative for COVID and influenza. Chest x-ray-B/L pleural effusion, Moderately large right pleural effusion with increasing interstitial markings throughout the left chest and right upper lung field. EKG revealed atrial fibrillation with rapid ventricular rate 179. IV diltiazem given in ED for AFib with RVR. CT angio chest revealed-Lobar pulmonary embolism in the left pulmonary artery. Pulmonary edema and bilateral pleural effusions concerning for congestive heart failure. Left upper lobe bronchiectasis and consolidation concerning for infectious etiology. Cardiomegaly. CT abdominal pelvis revealed- 7mm nonobstructive calculus in the right renal pelvis. Additional 3 mm nonobstructive stone in the upper pole of the right kidney.Stool throughout the colon may suggest constipation. Patient was admitted for further care. Pulmonary consultation is called for evaluation and management of acute hypoxic respiratory failure, pulmonary embolism, pneumonia, pleural effusion, pulmonary edema and bronchiectasis. Review of Systems: 14-point review of systems negative unless otherwise noted above. Past Medical History Asthma, hypertension, diabetes mellitus type 2, CVA with right-sided residual deficits, hyperlipidemia, hypothyroidism, MDD, anxiety Past Surgical History: None Medications: Reviewed. Allergies: No known drug allergies. Family History: No family history of premature CAD. No family history of lung disorders. Social History: Nonsmoker. No alcohol or illicit drug use. Allergies: Coded Allergies: NO KNOWN ALLERGIES (Unverified , 02/11/25) Home Meds No Active Prescriptions or Reported Meds Current Medications Current Medications Medications (Trade) Dose Ordered Sig/Lindsey Route PRN Reason Start Time Stop Time Status Last Admin Sodium Chloride (Saline Lock Ns) 10 ml Q8HR IV 02/12/25 06:00 02/12/25 22:00 Ondansetron HCl (Zofran) 4 mg Q4HP PRN IV NAUSEA / VOMITING 02/12/25 01:15 Enoxaparin Sodium (Lovenox) 40 mg DAILY SC 02/12/25 10:00 02/12/25 01:28 DC Nitroglycerin (Ntrostat Sublingual) 0.4 mg Q5MINP PRN SL FOR CHEST PAIN 02/12/25 01:15 Diagnostic Test (Pha) (Accu-Chek Comfort Curve T) 1 strip IQ4HR 02/12/25 04:00 02/12/25 23:06 Insulin Human Regular (InsuLIN R) IQ4HR SC 02/12/25 04:00 02/12/25 08:14 Dextrose 50 ml UD PRN IV Blood Sugar LESS THAN 60 02/12/25 01:15 Piperacillin Sod/ Tazobactam Sod 100 ml @ 25 mls/hr Q8HR IV 02/12/25 14:00 02/12/25 22:02 Azithromycin 250 ml @ 125 mls/hr DAILY IV 02/13/25 10:00 Pantoprazole Sodium (Protonix) 40 mg DAILY IV 02/13/25 10:00 Magnesium Sulfate/ Dextrose 100 ml @ 100 mls/hr Q1H IV 02/12/25 01:30 02/12/25 03:29 DC 02/12/25 03:06 Furosemide (Lasix Injection) 40 mg BIDD IV 02/12/25 06:00 02/12/25 18:08 Enoxaparin Sodium (Lovenox) 90 mg Q12HR SC 02/12/25 10:00 02/12/25 22:05 Levothyroxine Sodium (Synthroid Tablet) 200 mcg QAM@0600 PO 02/12/25 06:00 Lactulose 30 ml BID PO 02/12/25 22:00 02/12/25 22:03 Tamsulosin HCl (Flomax) 0.4 mg QPM PO 02/12/25 18:00 02/12/25 18:07 Amiodarone HCl (Cordarone Tablet) 200 mg Q12HR PO 02/12/25 22:00 02/12/25 22:03 Empaglifozin (Jardiance) 10 mg DAILY PO 02/13/25 10:00 Sacubitril/ Valsartan (Entresto 24-26 Mg tab) 0.5 tab BID PO 02/12/25 22:00 02/12/25 22:03 Metoprolol Tartrate (Lopressor Tablet) 12.5 mg BID PO 02/12/25 22:00 02/12/25 23:05 Vital Signs Vital Signs Date Time Temp Pulse Resp B/P (MAP) Pulse Ox O2 Delivery O2 Flow Rate FiO2 02/12/25 23:05 87 118/64 02/12/25 22:00 15 91 02/12/25 22:00 Simple Mask* 6 50 02/12/25 20:00 97.6 97.6 Physical Exam Gen.: Patient lying in bed in no apparent distress. On supplemental oxygen. Head: Normocephalic, atraumatic. Eyes: EOMI/PERRLA. Ears: Normal hearing. Normal anatomy. Neck/trachea: Trachea midline, supple. Nose: Normal external anatomy. Mouth: Moist mucous membranes. Chest: Decreased air entry bilaterally. No wheezing or rhonchi. Cardiovascular: Positive S1, positive S2. Regular rate and rhythm. Abdomen: Positive bowel sounds in all 4 quadrants. Soft, non-tender, non- distended. : Deferred. Rectal: Deferred. Skin: Warm, dry. Intact. Extremities: 2+ radial pulses bilaterally. No lower extremity edema. Neuro: Awake, alert, oriented x3. No gross motor or sensory deficits. Cranial nerves II through XII intact. Gait not assessed. Labs/Diagnostic Data Labs Test 02/12/25 19:57 02/12/25 10:30 02/12/25 03:20 02/12/25 01:15 Range/Units POC Glucose 101 70-106 mg/dl White Blood Count 8.4 4.4-10.8 10^3/uL Red Blood Count 4.53 4.0-5.20 10^6/uL Hemoglobin 12.0 L 12.2-16.2 g/dL Hematocrit 36.7 36.0-46.0 % Mean Corpuscular Volume 80.9 80.0-100.0 fL Mean Corpuscular Hemoglobin 26.5 L 28.0-32.0 pg Mean Corpuscular Hemoglobin Concent 32.7 32.0-36.0 g/dL Red Cell Distribution Width 14.4 H 11.8-14.3 % Platelet Count 270 140-450 10^3/uL Mean Platelet Volume 8.3 6.9-10.8 fL Neutrophils (%) (Auto) 72.1 37.0-80.0 % Lymphocytes (%) (Auto) 19.4 10.0-50.0 % Monocytes (%) (Auto) 7.1 0.0-12.0 % Eosinophils (%) (Auto) 0.6 0.0-7.0 % Basophils (%) (Auto) 0.8 0.0-2.0 % Neutrophils # (Auto) 6.0 1.6-8.6 10 ^3/uL Lymphocytes # (Auto) 1.6 0.4-5.4 10 ^3/uL Monocytes # (Auto) 0.6 0-1.3 10 ^3/uL Eosinophils # (Auto) 0.1 0-0.8 10 ^3/uL Basophils # (Auto) 0.1 0-0.2 10 ^3/uL Nucleated Red Blood Cells 0.1 % Prothrombin Time 11.4 9.3-11.8 sec Prothrombin Time INR 1.08 0.9-1.15 Hemoglobin A1c 12.0 H <5.7 % A1C Sodium Level 137 136-145 mmol/L Potassium Level 4.2 3.5-5.1 mmol/L Chloride Level 101 98-107 mmol/L Carbon Dioxide Level 24 20-31 mmol/L Anion Gap 12 5-15 Blood Urea Nitrogen 20 9-23 mg/dL Creatinine 0.71 0.550-1.02 mg/dL Glomerular Filtration Rate Calc 93 >90 mL/min BUN/Creatinine Ratio 28.2 H 10.0-20.0 Serum Glucose 428 *H 74-106 mg/dL Calcium Level 9.1 8.7-10.4 mg/dL Magnesium Level 3.0 #H 1.6-2.6 mg/dL Total Bilirubin 0.3 0.2-1.0 mg/dL Aspartate Amino Transferase (AST) 8 L 13-40 U/L Alanine Aminotransferase (ALT) < 9 7-40 U/L Alkaline Phosphatase 85 46-116 U/L Ammonia < 10 L 11-32 umol/L Total Protein 6.2 5.7-8.2 g/dL Albumin 3.6 3.2-4.8 g/dL Triglycerides Level 115 < 150 mg/dL Cholesterol Level 99 < 200 mg/dL LDL Cholesterol 44 < 100 mg/dL HDL Cholesterol 35 L 40-59 mg/dL Influenza Type A Antigen Negative Negative Influenza Type B Antigen Negative Negative SARS-CoV-2 Antigen (Rapid) Negative NEGATIVE Test 02/12/25 01:09 02/12/25 00:30 02/11/25 23:12 02/11/25 21:43 Range/Units Troponin I High Sensitivity 52 *H </=34 ng/L Urine Color Colorless Yellow Urine Clarity Turbid H Clear Urine pH 5.0 5.0-9.0 Urine Specific [place] 1.008 1.001-1.035 Urine Protein Negative Negative Urine Ketones Negative Negative Urine Blood 1+ H Negative /uL Urine Nitrite Negative Negative Urine Bilirubin Negative Negative Urine Urobilinogen Normal Negative mg/dL Urine Leukocyte Esterase 3+ Negative /uL Urine RBC 35 0 - 4 /hpf Urine Microscopic WBC 146 H 0-5 /HPF Urine Squamous Epithelial Cells None seen <5 /hpf Urine Bacteria Many H None Seen /hpf Urine Hyaline Casts Few 0 - 2 /lpf Urine Mucus Few None Seen Urine Yeast (Budding) Loaded None Seen /hpf Urine Glucose 2+ H Normal mg/dL Urine Opiates Screen Neg NEGATIVE Urine Fentanyl Screen Neg NEGATIVE Urine Barbiturates Screen Neg NEGATIVE Urine Phencyclidine Screen Neg NEGATIVE Urine Amphetamines Screen Neg NEGATIVE Urine Benzodiazepines Screen Neg NEGATIVE Urine Cocaine Screen Neg NEGATIVE Urine Cannabinoids Screen Neg NEGATIVE Lactic Acid Level 2.1 *H 0.4-2.0 mmol/L Blood Gas Specimen Type Arterial Blood Gas Sample Site Left radial Blood Gas Patient Temperature 37.0 Arterial Blood Date Drawn [id number] Arterial Blood pH 7.446 7.350-7.450 Arterial Blood Partial Pressure CO2 36.3 32.0-45.0 mmHg Arterial Blood Partial Pressure O2 48.9 *L 83.0-108.0 mmHg Arterial Blood HCO3 24.4 21.0-28.0 mmol/L Arterial Blood Oxygen Saturation 83.6 *L 94.0-98.0 % Arterial Blood Base Excess 0.7 -2.0-3.0 mmol/L Arterial Blood Oxyhemoglobin 82.1 L 94.0-98.0 % Arterial Blood Carboxyhemoglobin 1.4 0.5-1.5 % Arterial Blood Methemoglobin 0.4 0.0-1.5 % Julian Test Modified Blood Gas Total Hemoglobin 13.60 12.0-16.0 g/dL Blood Gas Liter Flow 0.00 Blood Gas Modality Room air Blood Gas Spontaneous Rate 18 FiO2 % 36.0 Specimen Drawn By Steven kim rt Blood Gas Critical Value Read Back Yes Blood Gas Notified Whom aubree Barrow Blood Gas Notified Time [id number] Blood Gas Notified By Steven kim rt B-Type Natriuretic Peptide 553.40 0-100 pg/mL Lipase 21 12-53 U/L Beta-Hydroxybutyric Acid 1.335 H < 0.4 mmol/L Thyroid Stimulating Hormone (TSH) 4.11 0.55-4.78 uIU/mL Plasma/Serum Blood Alcohol < 3.0 <10 mg/dL Microbiology Date/Time Source Procedure Growth Status 02/11/25 21:43 Blood Blood Culture - Preliminary NO GROWTH AFTER 24 HOURS OF INCUBATION. Resulted Assessment Impression: Acute hypoxic respiratory failure Dependence on supplemental oxygen Pulmonary embolism Pleural effusion Atelectasis Constipation Pulmonary edema Congestive heart failure Bronchiectasis Pneumonia, likely GNR Obesity, BMI 34.2 Plan: Supplemental oxygen 6 LPM simple mask Titrate to keep O2 sats above 92%. Taper O2 as tolerated. CT angio chest revealed lobar pulmonary embolism in the left pulmonary artery. Pulmonary edema and bilateral pleural effusions concerning for congestive heart failure. Left upper lobe bronchiectasis and consolidation concerning for infectious etiology. Cardiomegaly Chest ultrasound revealed pleural effusion is not amenable for thoracentesis. Continue antibiotics Incentive spirometry for atelectasis Amiodarone PO for AFib Accu-Cheks, ISS. Therapeutic Lovenox for anticoagulation for PE. Protonix for GI prophylaxis Lactulose due to constipation. Diurese with Lasix BID Monitor renal function. Monitor electrolytes. Supplement as necessary. Monitor ins and outs. Diet and lifestyle modifications for weight reduction Obesity - complicates all care DVT prophylaxis. Prognosis: Poor given patient's multiple co-morbidities. Rest of plan per hospitalist and other consultants. Thank you, Dr. Lee, for allowing me to participate in this patient's care. Further recommendations will depend on the patient's clinical course. Please do not hesitate to contact me if you have any questions or concerns. This medical document was created using an electronic medical record system with [employer] dictation system. Although these documentations are being carefully reviewed, there may still be some phonetic and typographical changes. The errors are purely typographical, due to imperfection on the software program, and do not reflect any compromise in the patient's medical care. Plan discussed with: Other (RN/Dr. Lee) JUSTIN ROJAS MD Feb 12, 2025 23:48
[2025-02-13] VITALS (14 sets, daily range): BP systolic 108–128; BP diastolic 60–82; PULSE 69–84; RESP 12–23; TEMP 97.6–98.4; O2SAT 92–100
--- NOTE | 2025-02-13 08:43 | DVHPN2 ---
Reviewed: Care Plan, H&P, Labs, Medications, Previous Orders, Radiology Changes from previous H/P or p: No Changes Objective Vitals Vital Signs Date Time Temp Pulse Resp B/P (MAP) Pulse Ox O2 Delivery O2 Flow Rate FiO2 02/13/25 06:17 108/64 02/13/25 06:02 84 18 99 02/13/25 04:02 98.4 98.4 02/12/25 22:00 Simple Mask* 6 50 Intake/Output Intake and Output 02/13/25 07:00 Intake Total 511.64 ml Output Total 2650 ml Balance -2138.36 ml Intake Oral 120 ml IV Total 391.64 ml Output Urine Total 2650 ml Medications Current Medications Medications Dose Ordered Sig/Lindsey Route Start Time Stop Time Status Last Admin Dose Admin Sodium Chloride 10 ml Q8HR IV 02/12/25 06:00 02/13/25 06:17 10 ML Ondansetron HCl 4 mg Q4HP PRN IV 02/12/25 01:15 Nitroglycerin 0.4 mg Q5MINP PRN SL 02/12/25 01:15 Diagnostic Test (Pha) 1 strip IQ4HR 02/12/25 04:00 02/13/25 04:35 1 STRIP Insulin Human Regular IQ4HR SC 02/12/25 04:00 02/13/25 04:43 4 UNITS Dextrose 50 ml UD PRN IV 02/12/25 01:15 Piperacillin Sod/ Tazobactam Sod 100 ml @ 25 mls/hr Q8HR IV 02/12/25 14:00 02/13/25 06:14 25 MLS/HR Azithromycin 250 ml @ 125 mls/hr DAILY IV 02/13/25 10:00 Pantoprazole Sodium 40 mg DAILY IV 02/13/25 10:00 Furosemide 40 mg BIDD IV 02/12/25 06:00 02/13/25 06:17 40 MG Enoxaparin Sodium 90 mg Q12HR SC 02/12/25 10:00 02/12/25 22:05 90 MG Levothyroxine Sodium 200 mcg QAM@0600 PO 02/12/25 06:00 02/13/25 06:17 200 MCG Lactulose 30 ml BID PO 02/12/25 22:00 02/12/25 22:03 30 ML Tamsulosin HCl 0.4 mg QPM PO 02/12/25 18:00 02/12/25 18:07 0.4 MG Amiodarone HCl 200 mg Q12HR PO 02/12/25 22:00 02/12/25 22:03 200 MG Empaglifozin 10 mg DAILY PO 02/13/25 10:00 Sacubitril/ Valsartan 0.5 tab BID PO 02/12/25 22:00 02/12/25 22:03 0.5 TAB Metoprolol Tartrate 12.5 mg BID PO 02/12/25 22:00 02/12/25 23:05 12.5 MG Laboratory Results Laboratory Tests 02/12/25 03:20 02/12/25 10:30 Coagulation Test 02/12/25 10:30 Prothrombin Time 11.4 sec (9.3-11.8) Prothrombin Time INR 1.08 (0.9-1.15) HgA1c, TSH Test 02/12/25 10:30 Hemoglobin A1c 12.0 % A1C (<5.7) H Urinalysis Test 02/12/25 00:30 Urine Color Colorless (Yellow) Urine Clarity Turbid (Clear) H Urine pH 5.0 (5.0-9.0) Urine Specific [place] 1.008 (1.001-1.035) Urine Protein Negative (Negative) Urine Ketones Negative (Negative) Urine Blood 1+ /uL (Negative) H Urine Nitrite Negative (Negative) Urine Bilirubin Negative (Negative) Urine Urobilinogen Normal mg/dL (Negative) Urine Leukocyte Esterase 3+ /uL (Negative) Urine RBC 35 /hpf (0 - 4) Urine Microscopic WBC 146 /HPF (0-5) H Urine Squamous Epithelial Cells None seen /hpf (<5) Urine Bacteria Many /hpf (None Seen) H Urine Hyaline Casts Few /lpf (0 - 2) Urine Mucus Few (None Seen) Urine Yeast (Budding) Loaded /hpf (None Seen) Urine Glucose 2+ mg/dL (Normal) H Microbiology Microbiology Date/Time Source Procedure Growth Status 02/11/25 21:43 Blood Blood Culture - Preliminary NO GROWTH AFTER 24 HOURS OF INCUBATION. Resulted Labs and/or images reviewed: Labs reviewed by me, Image(s) reviewed by me Assessment/Plan Assessment/Plan Acute hypoxic respiratory failure: Oxygen by mask, consult by Dr. Person appreciated Septic Shock secondary to acute urinary tract infection: Blood cultures urine cultures Acute on chronic decompensated HFpEF, NYHA Class III, newly diagnosed, metoprolol Entresto Jardiance Lasjordan, cardiology consult by Dr. Curry appreciated Paroxysmal atrial fibrillation with rapid ventricular rate (Stage IIIa), now NSR, newly diagnosed treated with amiodarone drip Acute hypoxic respiratory failure Acute left pulmonary embolism: Lovenox therapeutic dose Bilateral pleural effusions, small Left upper lobe community-acquired pneumonia Gram-positive versus Gram-negative, Zosyn, azithromycin Right nephrolithiasis Insulin-dependent diabetes mellitus with hyperglycemia NSTEMI, likely type 2 secondary to above Hx CVA with dysarthria/right-sided hemiplegia/hemiparesis Hospice revoked Severe malnutrition Time Spent 68 minutes Advanced care planning time 20 minutes Patient is DNR Plan discussed with: Patient My Orders Orders - JESSE WOO MD Procedure Category Date Status Time DNR JASON 02/12/25 In Process 16:21 Code Status CODE 02/12/25 Transmitted 16:21 Date of Service: Feb 13, 2025 Billing Provider: JESSE WOO MD Common Visit Codes: [id number] CARE 30-74 MIN JESSE WOO MD Feb 13, 2025 08:43
--- NOTE | 2025-02-13 09:05 | DVHPN2 ---
Consult Progress Note Date Seen: Feb 13, 2025 Subjective Review of Systems: CVS:Normal, RESPIRATORY:Normal, NEURO:Normal Other Systems: NSR. No overnight cardiac events reported Objective vital signs Vital Sign Date Time Temp Pulse Resp B/P (MAP) Pulse Ox O2 Delivery O2 Flow Rate FiO2 02/13/25 07:45 99.5 89 18 132/60 (84) 97 99.5 02/12/25 22:00 Simple Mask* 6 50 Total Intake and Output 02/12/25 02/12/25 02/13/25 15:00 23:00 07:00 Intake Total 216.64 ml 75 ml 220 ml Output Total 1250 ml 1400 ml Balance 216.64 ml -1175 ml -1180 ml medications Current Medications Medications Dose Ordered Sig/Lindsey Route Start Time Stop Time Status Last Admin Dose Admin Sodium Chloride 10 ml Q8HR IV 02/12/25 06:00 02/13/25 06:17 10 ML Ondansetron HCl 4 mg Q4HP PRN IV 02/12/25 01:15 Nitroglycerin 0.4 mg Q5MINP PRN SL 02/12/25 01:15 Diagnostic Test (Pha) 1 strip IQ4HR 02/12/25 04:00 02/13/25 04:35 1 STRIP Insulin Human Regular IQ4HR SC 02/12/25 04:00 02/13/25 04:43 4 UNITS Dextrose 50 ml UD PRN IV 02/12/25 01:15 Piperacillin Sod/ Tazobactam Sod 100 ml @ 25 mls/hr Q8HR IV 02/12/25 14:00 02/13/25 06:14 25 MLS/HR Azithromycin 250 ml @ 125 mls/hr DAILY IV 02/13/25 10:00 Pantoprazole Sodium 40 mg DAILY IV 02/13/25 10:00 Furosemide 40 mg BIDD IV 02/12/25 06:00 02/13/25 06:17 40 MG Enoxaparin Sodium 90 mg Q12HR SC 02/12/25 10:00 02/12/25 22:05 90 MG Levothyroxine Sodium 200 mcg QAM@0600 PO 02/12/25 06:00 02/13/25 06:17 200 MCG Lactulose 30 ml BID PO 02/12/25 22:00 02/12/25 22:03 30 ML Tamsulosin HCl 0.4 mg QPM PO 02/12/25 18:00 02/12/25 18:07 0.4 MG Amiodarone HCl 200 mg Q12HR PO 02/12/25 22:00 02/12/25 22:03 200 MG Empaglifozin 10 mg DAILY PO 02/13/25 10:00 Sacubitril/ Valsartan 0.5 tab BID PO 02/12/25 22:00 02/12/25 22:03 0.5 TAB Metoprolol Tartrate 12.5 mg BID PO 02/12/25 22:00 02/12/25 23:05 12.5 MG Examination: GENERAL:Abnormal (Chronically ill), LUNGS:Normal, CVS:Normal (NSR), NEURO:Abnormal (Mild cognitive impairment, dysarthria) laboratory and microbiology Laboratory Tests 02/12/25 10:30 02/12/25 03:20 Test 02/12/25 03:20 Range/Units Serum Glucose 428 *H 74-106 mg/dL Problem List/Assessment/Plan Problem List/Assessment/Plan Acute on chronic decompensated HFpEF, NYHA Class III, newly diagnosed Paroxysmal atrial fibrillation with rapid ventricular rate (Stage IIIa), now NSR, newly diagnosed Acute hypoxic respiratory failure Acute pulmonary embolism Bilateral pleural effusions, small Pneumonia Right nephrolithiasis Insulin-dependent diabetes mellitus with hyperglycemia NSTEMI, likely type 2 secondary to above Hx CVA with dysarthria/right-sided hemiplegia/hemiparesis Recent hospice care status prior to admission Obesity Plan/Recommendation (Dr. Curry) Continue further cardiac evaluation with a transthoracic echocardiogram to evaluate for structural heart disease. Preliminary revealed mildly reduced EF with no signs of right heart strain. Continue GDMT for CHF and uptitrate as tolerated. Continue preload and afterload reduction, strict I&Os, daily weight, and fluid restrictions. Continue amiodarone BID. Continue therapeutic Lovenox and transition to DOAC when appropriate ([id number] Score 7 points, HAS-BLED Score 2 points). Patient will need therapeutic DOAC therapy for PE/A-fib. Replete electrolytes as necessary, K>4 and Mg>2. Monitor ECG changes closely and notify accordingly. There is no evidence of right heart strain and given recent hospice care we will continue conservative management with no invasive cardiac procedures suggested at this time. We will sign off at this time. Kindly call if in need to re-consult. Thank you for allowing us to participate in this patient's care. Critical care time: 45 min. This medical document was created using an electronic medical record system with voice recognition software and computerized dictation system. Although this document has been carefully reviewed, there might still be some phonetic and typographical errors. Occasional wrong-word or ``sound-alike substitutions may have occurred due to the inherent limitations of voice recognition software. These areas are purely typographical due to imperfections of the software programs and do not reflect any compromise in the patient's medical care. Please read the chart carefully and recognize, using context, where these substitutions have occurred. Plan discussed with: Patient, Other Date of Service: Feb 13, 2025 Billing Provider: NEAL AVITIA Cardiology Common Codes: [id number] HOSP CARE(High NEAL AVITIA Feb 13, 2025 09:05
[2025-02-13] MEDS: PANTOPRAZOLE 40 MG/10 ML VIAL INJ IV SCH (10:17)
[2025-02-13] MEDS: EMPAGLIFLOZIN 10 MG TAB PO SCH (10:18)
[2025-02-13] MEDS: AZITHROMYCIN 500MG/ 250ML 250 ML IV SCH (10:19)
[2025-02-13] MEDS: HYDROcodone-ACET 5/325MG TAB PO PRN (12:35)
--- NOTE | 2025-02-13 15:58 | DVHSR ---
APPROVED REPORT EXAM: LIMITED Two-dimensional and M-mode echocardiogram with Doppler and color Doppler. Blood Pressure: 135/87 mmHg INDICATION SOB, CP RISK FACTORS Obesity: Height: 5'6, Weight: 200 DIMENSIONS LVDd5.5 (3.8-5.7cm)LA (2D)3.2 (1.9-4.0cm)Aortic Root3.2 (2.0-3.7cm) LVDs4.3 (2.5-4.0cm)LA (MM) (1.9-4.0cm)Aortic Cusp Exc1.8 (1.5-2.0cm) EF (%) 43.0 (55-70%)Rt. Atrium (1.9-4.0cm)Asc. Aorta cm IVSd1.1 (0.7-1.1cm)RV (D) (1.8-2.4cm) PWd0.9 (0.7-1.1cm) Mitral Valve MitralMitral Stenosis E wave1.23m/sMV Mean GR.mmHg A wave0.68m/sMV Peak GR.67mmHg E/A ratio1.82D MVAcm2 DECEL [id number] 1/2 Timems Aortic Valve Aortic ValveAortic Stenosis V10.79m/Steph Mean GR.mmHg V21.09m/Steph Peak GR.5mmHg LVOT Diameter2.4 (1.8-2.4cm)Doppler AVA3.28cm2 Pulmonic Valve V20.68m/s Other Information Quality : Technically LimitedRhythm : Technically limited study due to pt leaning on right side, rigth sided weakness unable to turn Conclusion Technically difficult study with poor cardiac visualization LVEF severely reduced at 30-35%, global hypokinesis. Mildly dilated RV not well visualized, likely moderately reduced function Valves not well visualized, no significant disease
--- NOTE | 2025-02-13 21:39 | DVHPN2 ---
Progress Note - Dictate Date Seen: Feb 13, 2025 Medical Necessity Reason Pt with a Central, PICC or Fol: Yes The following are medically ne: Kong Catheter Reason for kong catheter: Strict I&O Subjective Patient seen and examined at bedside. Remains on supplemental oxygen Overnight events reviewed. [facility] vital signs Vital Sign Date Time Temp Pulse Resp B/P (MAP) Pulse Ox O2 Delivery O2 Flow Rate FiO2 02/13/25 19:40 74 15 97 Nasal Cannula* 3 32 02/13/25 19:40 97.5 111/63 (79) 97.5 Total Intake and Output 02/12/25 02/12/25 02/13/25 15:00 23:00 07:00 Intake Total 216.64 ml 75 ml 220 ml Output Total 1250 ml 1400 ml Balance 216.64 ml -1175 ml -1180 ml medications Current Medications Medications Dose Ordered Sig/Lindsey Route Start Time Stop Time Status Last Admin Dose Admin Sodium Chloride 10 ml Q8HR IV 02/12/25 06:00 02/13/25 14:09 10 ML Ondansetron HCl 4 mg Q4HP PRN IV 02/12/25 01:15 Nitroglycerin 0.4 mg Q5MINP PRN SL 02/12/25 01:15 Diagnostic Test (Pha) 1 strip IQ4HR 02/12/25 04:00 02/13/25 15:58 1 STRIP Insulin Human Regular IQ4HR SC 02/12/25 04:00 02/13/25 15:59 8 UNITS Dextrose 50 ml UD PRN IV 02/12/25 01:15 Piperacillin Sod/ Tazobactam Sod 100 ml @ 25 mls/hr Q8HR IV 02/12/25 14:00 02/13/25 14:09 25 MLS/HR Azithromycin 250 ml @ 125 mls/hr DAILY IV 02/13/25 10:00 02/13/25 10:19 125 MLS/HR Pantoprazole Sodium 40 mg DAILY IV 02/13/25 10:00 02/13/25 10:17 40 MG Furosemide 40 mg BIDD IV 02/12/25 06:00 02/13/25 06:17 40 MG Enoxaparin Sodium 90 mg Q12HR SC 02/12/25 10:00 02/13/25 10:28 90 MG Levothyroxine Sodium 200 mcg QAM@0600 PO 02/12/25 06:00 02/13/25 06:17 200 MCG Lactulose 30 ml BID PO 02/12/25 22:00 02/13/25 10:17 30 ML Tamsulosin HCl 0.4 mg QPM PO 02/12/25 18:00 02/12/25 18:07 0.4 MG Amiodarone HCl 200 mg Q12HR PO 02/12/25 22:00 02/13/25 10:17 200 MG Empaglifozin 10 mg DAILY PO 02/13/25 10:00 02/13/25 10:18 10 MG Sacubitril/ Valsartan 0.5 tab BID PO 02/12/25 22:00 02/13/25 10:18 0.5 TAB Metoprolol Tartrate 12.5 mg BID PO 02/12/25 22:00 02/12/25 23:05 12.5 MG Acetaminophen/ Hydrocodone Bitart 1 tab Q6HPRN PRN PO 02/13/25 12:15 02/13/25 12:35 1 TAB objective Gen.: Patient lying in bed in no apparent distress. On supplemental oxygen. Head: Normocephalic, atraumatic. Eyes: EOMI/PERRLA. Ears: Normal hearing. Normal anatomy. Neck/trachea: Trachea midline, supple. Nose: Normal external anatomy. Mouth: Moist mucous membranes. Chest: Decreased air entry bilaterally. No wheezing or rhonchi. Cardiovascular: Positive S1, positive S2. Regular rate and rhythm. Abdomen: Positive bowel sounds in all 4 quadrants. Soft, non-tender, non- distended. : Deferred. Rectal: Deferred. Skin: Warm, dry. Intact. Extremities: 2+ radial pulses bilaterally. No lower extremity edema. Neuro: Awake, alert, oriented x3. No gross motor or sensory deficits. Cranial nerves II through XII intact. Gait not assessed. laboratory and microbiology Laboratory Tests 02/12/25 10:30 02/12/25 03:20 Test 02/12/25 03:20 Range/Units Serum Glucose 428 *H 74-106 mg/dL Assessment/Plan Impression: Acute hypoxic respiratory failure Dependence on supplemental oxygen Pulmonary embolism Pleural effusion Atelectasis Constipation Pulmonary edema Congestive heart failure Bronchiectasis Pneumonia, likely GNR Obesity, BMI 34.2 Events: Remains on supplemental oxygen, 3 LPM NC Taper O2 as tolerated Limited chest ultrasound revealed pleural effusion is not amenable for thoracentesis. Continue antibiotics Incentive spirometry Monitor hemodynamics Hold Lasix due to systolic BP of 95. Monitor renal function. Monitor electrolytes. Supplement as necessary. Monitor ins and outs. Therapeutic Lovenox for PE. Labs and imaging reviewed. Rest of plan as noted below. Plan: Supplemental oxygen Titrate to keep O2 sats above 92%. CT angio chest revealed lobar pulmonary embolism in the left pulmonary artery. Pulmonary edema and bilateral pleural effusions concerning for congestive heart failure. Left upper lobe bronchiectasis and consolidation concerning for infectious etiology. Cardiomegaly Continue antibiotics Incentive spirometry for atelectasis Amiodarone PO for AFib Accu-Cheks, ISS. Lactulose due to constipation. Therapeutic Lovenox for anticoagulation for PE. Protonix for GI prophylaxis Diurese with Lasix BID - on hold due to low BP Monitor renal function. Monitor electrolytes. Supplement as necessary. Monitor ins and outs. Diet and lifestyle modifications for weight reduction Obesity - complicates all care DVT prophylaxis. Prognosis: Poor given patient's multiple co-morbidities. Rest of plan per hospitalist and other consultants. Thank you, Dr. Lee, for allowing me to participate in this patient's care. Further recommendations will depend on the patient's clinical course. Please do not hesitate to contact me if you have any questions or concerns. This medical document was created using an electronic medical record system with medineering dictation system. Although these documentations are being carefully reviewed, there may still be some phonetic and typographical changes. The errors are purely typographical, due to imperfection on the software program, and do not reflect any compromise in the patient's medical care. Plan discussed with: Patient, Other (RIOS Cee) JUSTIN ROJSA MD Feb 13, 2025 21:39
--- NOTE | 2025-02-13 23:26 | DVHPN2 ---
Consult Progress Note Subjective Review of Systems: NEURO:Normal Other Systems: Patient was seen and evaluated in follow up. Patient is in NSR on the court monitor. No overnight cardiac events. Patient is compaining of body aches. Patient passed swallow eval. BS in the 270's. Telemetry reviewed. Objective vital signs Vital Sign Date Time Temp Pulse Resp B/P (MAP) Pulse Ox O2 Delivery O2 Flow Rate FiO2 02/13/25 12:00 98.7 84 17 100/48 (65) 97 98.7 02/13/25 07:35 Nasal Cannula* 3 32 Total Intake and Output 02/12/25 02/12/25 02/13/25 15:00 23:00 07:00 Intake Total 216.64 ml 75 ml 220 ml Output Total 1250 ml 1400 ml Balance 216.64 ml -1175 ml -1180 ml medications Current Medications Medications Dose Ordered Sig/Lindsey Route Start Time Stop Time Status Last Admin Dose Admin Sodium Chloride 10 ml Q8HR IV 02/12/25 06:00 02/13/25 06:17 10 ML Ondansetron HCl 4 mg Q4HP PRN IV 02/12/25 01:15 Nitroglycerin 0.4 mg Q5MINP PRN SL 02/12/25 01:15 Diagnostic Test (Pha) 1 strip IQ4HR 02/12/25 04:00 02/13/25 12:19 1 STRIP Insulin Human Regular IQ4HR SC 02/12/25 04:00 02/13/25 12:19 12 UNITS Dextrose 50 ml UD PRN IV 02/12/25 01:15 Piperacillin Sod/ Tazobactam Sod 100 ml @ 25 mls/hr Q8HR IV 02/12/25 14:00 02/13/25 06:14 25 MLS/HR Azithromycin 250 ml @ 125 mls/hr DAILY IV 02/13/25 10:00 02/13/25 10:19 125 MLS/HR Pantoprazole Sodium 40 mg DAILY IV 02/13/25 10:00 02/13/25 10:17 40 MG Furosemide 40 mg BIDD IV 02/12/25 06:00 02/13/25 06:17 40 MG Enoxaparin Sodium 90 mg Q12HR SC 02/12/25 10:00 02/13/25 10:28 90 MG Levothyroxine Sodium 200 mcg QAM@0600 PO 02/12/25 06:00 02/13/25 06:17 200 MCG Lactulose 30 ml BID PO 02/12/25 22:00 02/13/25 10:17 30 ML Tamsulosin HCl 0.4 mg QPM PO 02/12/25 18:00 02/12/25 18:07 0.4 MG Amiodarone HCl 200 mg Q12HR PO 02/12/25 22:00 02/13/25 10:17 200 MG Empaglifozin 10 mg DAILY PO 02/13/25 10:00 02/13/25 10:18 10 MG Sacubitril/ Valsartan 0.5 tab BID PO 02/12/25 22:00 02/13/25 10:18 0.5 TAB Metoprolol Tartrate 12.5 mg BID PO 02/12/25 22:00 02/12/25 23:05 12.5 MG Acetaminophen/ Hydrocodone Bitart 1 tab Q6HPRN PRN PO 02/13/25 12:15 02/13/25 12:35 1 TAB Examination: GENERAL:Abnormal (Chronically ill), HEENT:Normal, NECK:Normal, LUNGS:Normal, CVS:Normal, ABDOMEN:Normal, MSK:Normal, SKIN:Normal, NEURO:Abnormal (Mild cognitive impairment, dysarthria) laboratory and microbiology Laboratory Tests 02/12/25 10:30 02/12/25 03:20 Test 02/12/25 03:20 Range/Units Serum Glucose 428 *H 74-106 mg/dL Problem List/Assessment/Plan Problem List/Assessment/Plan Assessment Acute on chronic decompensated HFpEF, NYHA Class III, newly diagnosed. Paroxysmal atrial fibrillation with rapid ventricular rate (Stage IIIa), now NSR, newly diagnosed. Acute hypoxic respiratory failure. Acute pulmonary embolism. Bilateral pleural effusions, small. Pneumonia. Right nephrolithiasis. Insulin-dependent diabetes mellitus with hyperglycemia. NSTEMI, likely type 2 secondary to above. History of CVA with dysarthria/right-sided hemiplegia/hemiparesis. Recent hospice care status prior to admission. Obesity. Plan/Recommendation Continued all current supportive medical care. Patient has been seen by Krissy Mauricio NP on my behalf. We have discussed the plan with the patient. Telemetry reviewed. Continue further cardiac evaluation with a transthoracic echocardiogram to evaluate for structural heart disease. Preliminary revealed mildly reduced EF with no signs of right heart strain. Continue GDMT for CHF and uptitrate as tolerated. Continue preload and afterload reduction, strict I&Os, daily weight, and fluid restrictions. Continue amiodarone BID. Continue therapeutic Lovenox and transition to DOAC when appropriate (TPR4MT1- VASc Score 7 points, HAS-BLED Score 2 points). Patient will need therapeutic DOAC therapy for PE/A-fib. Replete electrolytes as necessary, K>4 and Mg>2. Monitor ECG changes closely and notify accordingly. There is no evidence of right heart strain and given recent hospice care we will continue conservative management with no invasive cardiac procedures suggested at this time. Additional plan as per the hospital course. Plan discussed with: Patient Date of Service: Feb 13, 2025 Billing Provider: XOCIHTL WISEMAN MD Cardiology Common Codes: [id number] HOSP CARE(High XOCHITL WISEMAN MD Feb 13, 2025 13:25
[2025-02-14] VITALS (8 sets, daily range): BP systolic 112–129; BP diastolic 63–85; PULSE 64–98; RESP 17–20; TEMP 97.4–98.7; O2SAT 94–98
--- NOTE | 2025-02-14 09:47 | DVHPN2 ---
Reviewed: Care Plan, H&P, Labs, Medications, Previous Orders, Radiology Changes from previous H/P or p: No Changes Objective Vitals Vital Signs Date Time Temp Pulse Resp B/P (MAP) Pulse Ox O2 Delivery O2 Flow Rate FiO2 02/14/25 08:00 83 20 94 Simple Mask* 6 50 02/14/25 06:29 129/84 02/14/25 05:00 97.5 97.5 Intake/Output Intake and Output 02/14/25 07:00 Intake Total 500 ml Output Total 2350 ml Balance -1850 ml Intake Oral 150 ml IV Total 350 ml Output Urine Total 2350 ml Medications Current Medications Medications Dose Ordered Sig/Lindsey Route Start Time Stop Time Status Last Admin Dose Admin Sodium Chloride 10 ml Q8HR IV 02/12/25 06:00 02/14/25 06:18 10 ML Ondansetron HCl 4 mg Q4HP PRN IV 02/12/25 01:15 Nitroglycerin 0.4 mg Q5MINP PRN SL 02/12/25 01:15 Diagnostic Test (Pha) 1 strip IQ4HR 02/12/25 04:00 02/14/25 08:09 1 STRIP Insulin Human Regular IQ4HR SC 02/12/25 04:00 02/14/25 04:09 8 UNITS Dextrose 50 ml UD PRN IV 02/12/25 01:15 Piperacillin Sod/ Tazobactam Sod 100 ml @ 25 mls/hr Q8HR IV 02/12/25 14:00 02/14/25 06:29 25 MLS/HR Azithromycin 250 ml @ 125 mls/hr DAILY IV 02/13/25 10:00 02/13/25 10:19 125 MLS/HR Pantoprazole Sodium 40 mg DAILY IV 02/13/25 10:00 02/13/25 10:17 40 MG Furosemide 40 mg BIDD IV 02/12/25 06:00 02/14/25 06:29 40 MG Enoxaparin Sodium 90 mg Q12HR SC 02/12/25 10:00 02/14/25 00:29 90 MG Levothyroxine Sodium 200 mcg QAM@0600 PO 02/12/25 06:00 02/14/25 06:28 200 MCG Lactulose 30 ml BID PO 02/12/25 22:00 02/14/25 00:29 30 ML Tamsulosin HCl 0.4 mg QPM PO 02/12/25 18:00 02/12/25 18:07 0.4 MG Amiodarone HCl 200 mg Q12HR PO 02/12/25 22:00 02/14/25 00:21 200 MG Empaglifozin 10 mg DAILY PO 02/13/25 10:00 02/13/25 10:18 10 MG Sacubitril/ Valsartan 0.5 tab BID PO 02/12/25 22:00 02/14/25 00:21 0.5 TAB Metoprolol Tartrate 12.5 mg BID PO 02/12/25 22:00 02/14/25 00:29 12.5 MG Acetaminophen/ Hydrocodone Bitart 1 tab Q6HPRN PRN PO 02/13/25 12:15 02/13/25 12:35 1 TAB Laboratory Results Laboratory Tests 02/12/25 03:20 02/12/25 10:30 Urinalysis Test 02/12/25 00:30 Urine Color Colorless (Yellow) Urine Clarity Turbid (Clear) H Urine pH 5.0 (5.0-9.0) Urine Specific [place] 1.008 (1.001-1.035) Urine Protein Negative (Negative) Urine Ketones Negative (Negative) Urine Blood 1+ /uL (Negative) H Urine Nitrite Negative (Negative) Urine Bilirubin Negative (Negative) Urine Urobilinogen Normal mg/dL (Negative) Urine Leukocyte Esterase 3+ /uL (Negative) Urine RBC 35 /hpf (0 - 4) Urine Microscopic WBC 146 /HPF (0-5) H Urine Squamous Epithelial Cells None seen /hpf (<5) Urine Bacteria Many /hpf (None Seen) H Urine Hyaline Casts Few /lpf (0 - 2) Urine Mucus Few (None Seen) Urine Yeast (Budding) Loaded /hpf (None Seen) Urine Glucose 2+ mg/dL (Normal) H Microbiology Microbiology Date/Time Source Procedure Growth Status 02/12/25 07:44 Nose MRSA Screen - Final Complete 02/12/25 00:30 Voided Urine Urine Culture - Preliminary Klebsiella pneumoniae Resulted 02/11/25 21:43 Blood Blood Culture - Preliminary NO GROWTH AFTER 48 HOURS OF INCUBATION. Resulted Labs and/or images reviewed: Labs reviewed by me, Image(s) reviewed by me Assessment/Plan Assessment/Plan Acute hypoxic respiratory failure: Oxygen by mask, consult by Dr. Person appreciated Septic Shock secondary to acute urinary tract infection: Blood cultures urine cultures Acute on chronic decompensated HFpEF, NYHA Class III, newly diagnosed, metoprolol Entresto Jardishirley Lasix, cardiology consult by Dr. Curry appreciated Paroxysmal atrial fibrillation with rapid ventricular rate (Stage IIIa), now NSR, newly diagnosed treated with amiodarone drip now on amiodarone p.o. Acute hypoxic respiratory failure Acute left pulmonary embolism: Lovenox therapeutic dose, will transition to Eliquis in two days Bilateral pleural effusions, small Left upper lobe community-acquired pneumonia Gram-positive versus Gram-negative, Zosyn, azithromycin Right nephrolithiasis Insulin-dependent diabetes mellitus with hyperglycemia NSTEMI, likely type 2 secondary to above Hx CVA with dysarthria/right-sided hemiplegia/hemiparesis Hospice revoked Severe malnutrition Time Spent 68 minutes Advanced care planning time 20 minutes Patient is DNR Plan discussed with: Patient My Orders Orders - JESSE WOO MD Procedure Category Date Status Time Pureed DIET 02/13/25 Transmitted Lunch Hydrocodone-Acet PHA 02/13/25 In Process 5/325mg Tab ([place] 12:15 * Dietary Consult CONS 02/13/25 Transmitted 15:35 Apply Barrier Cream JASON 02/13/25 In Process 10:52 Date of Service: Feb 14, 2025 Billing Provider: JESSE WOO MD Common Visit Codes: [id number] CARE 30-74 MIN JESSE WOO MD Feb 14, 2025 09:47
--- NOTE | 2025-02-14 12:05 | ECG ---
[facility] Test Date: 2025-02-11 Test Time: 23:54:57 Pat Name: NAIMA PRINCE Department: ED Room: 0236T A Gender: F [employer]: JOSE JUAN : 1955 Requested By: DEBBIE HELTON Order Number: [id number] Reading MD: Yogi Zimmerman Measurements Intervals [place] Rate: 146 P: 0 OK: 0 QRS: -33 QRSD: 118 T: 122 QT: 310 QTc: 484 Interpretive Statements Atrial fibrillation Low voltage, precordial leads LVH with IVCD and secondary repol abnrm Electronically Signed On 02-14-2025 18:59:51 PDT by Yogi Zimmerman Please click the below link to view image of tracing.
--- NOTE | 2025-02-14 14:48 | DVHPN2 ---
Progress Note - Dictate Date Seen: Feb 14, 2025 Medical Necessity Reason Pt with a Central, PICC or Fol: Yes The following are medically ne: Kong Catheter Reason for kong catheter: Strict I&O Subjective Patient was seen and evaluated in follow up. Patient is on 6 L via mask. BS in the 280's. Telemetry reviewed. vital signs Vital Sign Date Time Temp Pulse Resp B/P (MAP) Pulse Ox O2 Delivery O2 Flow Rate FiO2 02/14/25 10:49 70 126/77 02/14/25 09:00 97.4 18 97 97.4 02/14/25 08:00 Simple Mask* 6 50 Total Intake and Output 02/13/25 02/13/25 02/14/25 15:00 23:00 07:00 Intake Total 250 ml 100 ml 150 ml Output Total 1000 ml 600 ml 750 ml Balance -750 ml -500 ml -600 ml medications Current Medications Medications Dose Ordered Sig/Lindsey Route Start Time Stop Time Status Last Admin Dose Admin Sodium Chloride 10 ml Q8HR IV 02/12/25 06:00 02/14/25 06:18 10 ML Ondansetron HCl 4 mg Q4HP PRN IV 02/12/25 01:15 Nitroglycerin 0.4 mg Q5MINP PRN SL 02/12/25 01:15 Diagnostic Test (Pha) 1 strip IQ4HR 02/12/25 04:00 02/14/25 11:38 1 STRIP Insulin Human Regular IQ4HR SC 02/12/25 04:00 02/14/25 12:12 12 UNITS Dextrose 50 ml UD PRN IV 02/12/25 01:15 Piperacillin Sod/ Tazobactam Sod 100 ml @ 25 mls/hr Q8HR IV 02/12/25 14:00 02/14/25 06:29 25 MLS/HR Azithromycin 250 ml @ 125 mls/hr DAILY IV 02/13/25 10:00 02/14/25 10:47 125 MLS/HR Pantoprazole Sodium 40 mg DAILY IV 02/13/25 10:00 02/14/25 10:47 40 MG Furosemide 40 mg BIDD IV 02/12/25 06:00 02/14/25 06:29 40 MG Enoxaparin Sodium 90 mg Q12HR SC 02/12/25 10:00 02/14/25 10:47 90 MG Levothyroxine Sodium 200 mcg QAM@0600 PO 02/12/25 06:00 02/14/25 06:28 200 MCG Lactulose 30 ml BID PO 02/12/25 22:00 02/14/25 10:47 30 ML Tamsulosin HCl 0.4 mg QPM PO 02/12/25 18:00 02/12/25 18:07 0.4 MG Amiodarone HCl 200 mg Q12HR PO 02/12/25 22:00 02/14/25 10:48 200 MG Empaglifozin 10 mg DAILY PO 02/13/25 10:00 02/14/25 10:48 10 MG Sacubitril/ Valsartan 0.5 tab BID PO 02/12/25 22:00 02/14/25 10:49 0.5 TAB Metoprolol Tartrate 12.5 mg BID PO 02/12/25 22:00 02/14/25 10:49 12.5 MG Acetaminophen/ Hydrocodone Bitart 1 tab Q6HPRN PRN PO 02/13/25 12:15 02/13/25 12:35 1 TAB objective GENERAL: No acute distress. EYES: PERRL, EOMI. Anicteric. HENT: Moist mucous membranes. LUNGS: Clear to auscultation bilaterally. CARDIOVASCULAR: Regular rate and rhythm. ABDOMEN: Soft, non-tender and non-distended. EXTREMITIES: No edema. NEUROLOGIC: Mild cognitive impairment. Dysarthria. Right-sided hemiparesis/hemiplegia SKIN: Warm, dry. laboratory and microbiology Laboratory Tests 02/12/25 10:30 02/12/25 03:20 Test 02/12/25 03:20 Range/Units Serum Glucose 428 *H 74-106 mg/dL Problem List Acute on chronic decompensated HFpEF, NYHA Class III, newly diagnosed. Paroxysmal atrial fibrillation with rapid ventricular rate (Stage IIIa), now NSR, newly diagnosed. Acute hypoxic respiratory failure. Acute pulmonary embolism. Bilateral pleural effusions, small. Pneumonia. Right nephrolithiasis. Insulin-dependent diabetes mellitus with hyperglycemia. NSTEMI, likely type 2 secondary to above. History of CVA with dysarthria/right-sided hemiplegia/hemiparesis. Recent hospice care status prior to admission. Obesity. Assessment/Plan Continued all current supportive medical care. DVT and GI prophylactics. IV antibiotics as ordered. Metoprolol. Amiodarone. Diuretics with Lasix. Entresto. Additional plan as per the hospital course. Dietary Evaluation Review Comments: 1. CCHO-60 pureed diet 2. Addi BID for wound healing Expected Outcomes/Goals: controlled blood sugar, gradually healed wounds Plan discussed with: Other XOCHITL WISEMAN MD Feb 14, 2025 12:19
--- NOTE | 2025-02-14 23:45 | DVHPN2 ---
Progress Note - Dictate Date Seen: Feb 14, 2025 Medical Necessity Reason Pt with a Central, PICC or Fol: Yes The following are medically ne: Kong Catheter Reason for kong catheter: Strict I&O Subjective Patient seen and examined at bedside. Remains on supplemental oxygen Overnight events reviewed. [facility] vital signs Vital Sign Date Time Temp Pulse Resp B/P (MAP) Pulse Ox O2 Delivery O2 Flow Rate FiO2 02/14/25 21:30 77 112/63 02/14/25 21:28 98.7 19 97 98.7 02/14/25 20:00 Nasal Cannula* 3 32 Total Intake and Output 02/13/25 02/13/25 02/14/25 15:00 23:00 07:00 Intake Total 250 ml 100 ml 150 ml Output Total 1000 ml 600 ml 750 ml Balance -750 ml -500 ml -600 ml medications Current Medications Medications Dose Ordered Sig/Lindsey Route Start Time Stop Time Status Last Admin Dose Admin Sodium Chloride 10 ml Q8HR IV 02/12/25 06:00 02/14/25 21:29 10 ML Ondansetron HCl 4 mg Q4HP PRN IV 02/12/25 01:15 Nitroglycerin 0.4 mg Q5MINP PRN SL 02/12/25 01:15 Diagnostic Test (Pha) 1 strip IQ4HR 02/12/25 04:00 02/14/25 20:10 1 STRIP Insulin Human Regular IQ4HR SC 02/12/25 04:00 02/14/25 20:14 20 UNITS Dextrose 50 ml UD PRN IV 02/12/25 01:15 Piperacillin Sod/ Tazobactam Sod 100 ml @ 25 mls/hr Q8HR IV 02/12/25 14:00 02/14/25 21:29 25 MLS/HR Azithromycin 250 ml @ 125 mls/hr DAILY IV 02/13/25 10:00 02/14/25 10:47 125 MLS/HR Pantoprazole Sodium 40 mg DAILY IV 02/13/25 10:00 02/14/25 10:47 40 MG Furosemide 40 mg BIDD IV 02/12/25 06:00 02/14/25 17:02 40 MG Enoxaparin Sodium 90 mg Q12HR SC 02/12/25 10:00 02/14/25 21:31 90 MG Levothyroxine Sodium 200 mcg QAM@0600 PO 02/12/25 06:00 02/14/25 06:28 200 MCG Lactulose 30 ml BID PO 02/12/25 22:00 02/14/25 21:29 30 ML Tamsulosin HCl 0.4 mg QPM PO 02/12/25 18:00 02/14/25 16:58 0.4 MG Amiodarone HCl 200 mg Q12HR PO 02/12/25 22:00 02/14/25 21:30 200 MG Empaglifozin 10 mg DAILY PO 02/13/25 10:00 02/14/25 10:48 10 MG Sacubitril/ Valsartan 0.5 tab BID PO 02/12/25 22:00 02/14/25 21:30 0.5 TAB Metoprolol Tartrate 12.5 mg BID PO 02/12/25 22:00 02/14/25 21:30 12.5 MG Acetaminophen/ Hydrocodone Bitart 1 tab Q6HPRN PRN PO 02/13/25 12:15 02/13/25 12:35 1 TAB objective Gen.: Patient lying in bed in no apparent distress. On supplemental oxygen. Head: Normocephalic, atraumatic. Eyes: EOMI/PERRLA. Ears: Normal hearing. Normal anatomy. Neck/trachea: Trachea midline, supple. Nose: Normal external anatomy. Mouth: Moist mucous membranes. Chest: Decreased air entry bilaterally. No wheezing or rhonchi. Cardiovascular: Positive S1, positive S2. Regular rate and rhythm. Abdomen: Positive bowel sounds in all 4 quadrants. Soft, non-tender, non- distended. : Deferred. Rectal: Deferred. Skin: Warm, dry. Intact. Extremities: 2+ radial pulses bilaterally. No lower extremity edema. Neuro: Awake, alert, oriented x3. No gross motor or sensory deficits. Cranial nerves II through XII intact. Gait not assessed. laboratory and microbiology Laboratory Tests 02/12/25 10:30 02/12/25 03:20 Test 02/12/25 03:20 Range/Units Serum Glucose 428 *H 74-106 mg/dL Assessment/Plan Impression: Acute hypoxic respiratory failure Dependence on supplemental oxygen Pulmonary embolism Pleural effusion Atelectasis Constipation Pulmonary edema Congestive heart failure Bronchiectasis Pneumonia, likely GNR Obesity, BMI 34.2 Events: Remains on supplemental oxygen, 2.5 LPM NC Taper O2 as tolerated Patient is feeling better. Head of bed elevation Aspiration precautions Continue antibiotics Incentive spirometry Diurese with Lasix Monitor renal function. Monitor electrolytes. Supplement as necessary. Monitor ins and outs. Therapeutic Lovenox for PE. On puree diet, eating well. Labs and imaging reviewed. Rest of plan as noted below. Plan: Supplemental oxygen Titrate to keep O2 sats above 92%. CT angio chest revealed lobar pulmonary embolism in the left pulmonary artery. Pulmonary edema and bilateral pleural effusions concerning for congestive heart failure. Left upper lobe bronchiectasis and consolidation concerning for infectious etiology. Cardiomegaly Limited chest ultrasound revealed pleural effusion is not amenable for thoracentesis. Continue antibiotics Incentive spirometry for atelectasis Amiodarone PO for AFib Accu-Cheks, ISS PRN. Lactulose due to constipation. Therapeutic Lovenox for anticoagulation for PE. Protonix for GI prophylaxis Diurese with Lasix BID Monitor renal function. Monitor electrolytes. Supplement as necessary. Monitor ins and outs. Diet and lifestyle modifications for weight reduction Obesity - complicates all care DVT prophylaxis. Prognosis: Poor given patient's multiple co-morbidities. Rest of plan per hospitalist and other consultants. Thank you, Dr. Lee, for allowing me to participate in this patient's care. Further recommendations will depend on the patient's clinical course. Please do not hesitate to contact me if you have any questions or concerns. This medical document was created using an electronic medical record system with [employer] dictation system. Although these documentations are being carefully reviewed, there may still be some phonetic and typographical changes. The errors are purely typographical, due to imperfection on the software program, and do not reflect any compromise in the patient's medical care. Dietary Evaluation Review Comments: 1. CCHO-60 pureed diet 2. Addi BID for wound healing Expected Outcomes/Goals: controlled blood sugar, gradually healed wounds Plan discussed with: Patient, Other (RIOS Rocha) JUSTIN ROJAS MD Feb 14, 2025 23:45
[2025-02-15] VITALS (9 sets, daily range): BP systolic 100–119; BP diastolic 49–71; PULSE 61–83; RESP 16–20; TEMP 97.9–98.7; O2SAT 94–98
--- NOTE | 2025-02-15 10:09 | DVHPN2 ---
Reviewed: Care Plan, H&P, Labs, Medications, Previous Orders, Radiology Changes from previous H/P or p: No Changes Objective Vitals Vital Signs Date Time Temp Pulse Resp B/P (MAP) Pulse Ox O2 Delivery O2 Flow Rate FiO2 02/15/25 09:00 98.2 71 18 105/68 (80) 96 98.2 02/15/25 08:12 Simple Mask* 6 50 Intake/Output Intake and Output 02/15/25 07:00 Intake Total 1600 ml Output Total 4400 ml Balance -2800 ml Intake Oral 1600 ml Output Urine Total 4400 ml Medications Current Medications Medications Dose Ordered Sig/Lindsey Route Start Time Stop Time Status Last Admin Dose Admin Sodium Chloride 10 ml Q8HR IV 02/12/25 06:00 02/15/25 06:22 10 ML Ondansetron HCl 4 mg Q4HP PRN IV 02/12/25 01:15 Nitroglycerin 0.4 mg Q5MINP PRN SL 02/12/25 01:15 Diagnostic Test (Pha) 1 strip IQ4HR 02/12/25 04:00 02/15/25 08:00 1 STRIP Insulin Human Regular IQ4HR SC 02/12/25 04:00 02/15/25 04:26 2 UNITS Dextrose 50 ml UD PRN IV 02/12/25 01:15 Piperacillin Sod/ Tazobactam Sod 100 ml @ 25 mls/hr Q8HR IV 02/12/25 14:00 02/15/25 06:20 25 MLS/HR Azithromycin 250 ml @ 125 mls/hr DAILY IV 02/13/25 10:00 02/14/25 10:47 125 MLS/HR Pantoprazole Sodium 40 mg DAILY IV 02/13/25 10:00 02/14/25 10:47 40 MG Furosemide 40 mg BIDD IV 02/12/25 06:00 02/15/25 06:22 40 MG Enoxaparin Sodium 90 mg Q12HR SC 02/12/25 10:00 02/14/25 21:31 90 MG Levothyroxine Sodium 200 mcg QAM@0600 PO 02/12/25 06:00 02/15/25 06:21 200 MCG Lactulose 30 ml BID PO 02/12/25 22:00 02/14/25 21:29 30 ML Tamsulosin HCl 0.4 mg QPM PO 02/12/25 18:00 02/14/25 16:58 0.4 MG Amiodarone HCl 200 mg Q12HR PO 02/12/25 22:00 02/14/25 21:30 200 MG Empaglifozin 10 mg DAILY PO 02/13/25 10:00 02/14/25 10:48 10 MG Sacubitril/ Valsartan 0.5 tab BID PO 02/12/25 22:00 02/14/25 21:30 0.5 TAB Metoprolol Tartrate 12.5 mg BID PO 02/12/25 22:00 02/14/25 21:30 12.5 MG Acetaminophen/ Hydrocodone Bitart 1 tab Q6HPRN PRN PO 02/13/25 12:15 02/15/25 00:14 1 TAB Laboratory Results Laboratory Tests 02/12/25 03:20 02/12/25 10:30 Urinalysis Test 02/12/25 00:30 Urine Color Colorless (Yellow) Urine Clarity Turbid (Clear) H Urine pH 5.0 (5.0-9.0) Urine Specific [place] 1.008 (1.001-1.035) Urine Protein Negative (Negative) Urine Ketones Negative (Negative) Urine Blood 1+ /uL (Negative) H Urine Nitrite Negative (Negative) Urine Bilirubin Negative (Negative) Urine Urobilinogen Normal mg/dL (Negative) Urine Leukocyte Esterase 3+ /uL (Negative) Urine RBC 35 /hpf (0 - 4) Urine Microscopic WBC 146 /HPF (0-5) H Urine Squamous Epithelial Cells None seen /hpf (<5) Urine Bacteria Many /hpf (None Seen) H Urine Hyaline Casts Few /lpf (0 - 2) Urine Mucus Few (None Seen) Urine Yeast (Budding) Loaded /hpf (None Seen) Urine Glucose 2+ mg/dL (Normal) H Microbiology Microbiology Date/Time Source Procedure Growth Status 02/12/25 07:44 Nose MRSA Screen - Final Complete 02/12/25 00:30 Voided Urine Urine Culture - Preliminary Klebsiella pneumoniae Resulted 02/11/25 21:43 Blood Blood Culture - Preliminary NO GROWTH AFTER 72 HOURS OF INCUBATION. Resulted Labs and/or images reviewed: Labs reviewed by me, Image(s) reviewed by me Assessment/Plan Assessment/Plan Acute hypoxic respiratory failure: Oxygen by mask, consult by Dr. Person appreciated Septic Shock secondary to acute urinary tract infection: Blood cultures urine cultures Acute on chronic decompensated HFpEF, NYHA Class III, newly diagnosed, metoprolol Entresto Jardishirley Lasix, cardiology consult by Dr. Curry appreciated Paroxysmal atrial fibrillation with rapid ventricular rate (Stage IIIa), now NSR, newly diagnosed treated with amiodarone drip now on amiodarone p.o. Acute hypoxic respiratory failure Acute left pulmonary embolism: Lovenox therapeutic dose, transitioned to Eliquis DVT ruled out Bilateral pleural effusions, small Left upper lobe community-acquired pneumonia Gram-positive versus Gram-negative, Zosyn, azithromycin Right nephrolithiasis: Dr. Bashir planning for lithotripsy today Legally blind Insulin-dependent diabetes mellitus with hyperglycemia NSTEMI, likely type 2 secondary to above Hx CVA with dysarthria/right-sided hemiplegia/hemiparesis Hospice revoked Severe malnutrition Time Spent 68 minutes Advanced care planning time 20 minutes Patient is DNR Patient's lives alone Possible SNF placement Plan discussed with: Patient, Other (RN) Date of Service: Feb 15, 2025 Billing Provider: JESSE WOO MD Common Visit Codes: [id number] CARE 30-74 MIN JESSE WOO MD Feb 15, 2025 10:09
[2025-02-15] MEDS: APIXABAN 5 MG TAB PO ONE (10:45)
--- NOTE | 2025-02-15 13:19 | DVHPN2 ---
Progress Note - Dictate Date Seen: Feb 15, 2025 Medical Necessity Reason Pt with a Central, PICC or Fol: Yes The following are medically ne: Kong Catheter Reason for kong catheter: Strict I&O vital signs Vital Sign Date Time Temp Pulse Resp B/P (MAP) Pulse Ox O2 Delivery O2 Flow Rate FiO2 02/15/25 09:00 98.2 71 18 105/68 (80) 96 98.2 02/15/25 08:12 Simple Mask* 6 50 Total Intake and Output 02/14/25 02/14/25 02/15/25 15:00 23:00 07:00 Intake Total 640 ml 960 ml Output Total 2950 ml 1450 ml Balance -2310 ml -490 ml medications Current Medications Medications Dose Ordered Sig/Lindsey Route Start Time Stop Time Status Last Admin Dose Admin Sodium Chloride 10 ml Q8HR IV 02/12/25 06:00 02/15/25 06:22 10 ML Ondansetron HCl 4 mg Q4HP PRN IV 02/12/25 01:15 Nitroglycerin 0.4 mg Q5MINP PRN SL 02/12/25 01:15 Diagnostic Test (Pha) 1 strip IQ4HR 02/12/25 04:00 02/15/25 12:00 1 STRIP Insulin Human Regular IQ4HR SC 02/12/25 04:00 02/15/25 12:15 8 UNITS Dextrose 50 ml UD PRN IV 02/12/25 01:15 Piperacillin Sod/ Tazobactam Sod 100 ml @ 25 mls/hr Q8HR IV 02/12/25 14:00 02/15/25 06:20 25 MLS/HR Azithromycin 250 ml @ 125 mls/hr DAILY IV 02/13/25 10:00 02/15/25 10:28 125 MLS/HR Pantoprazole Sodium 40 mg DAILY IV 02/13/25 10:00 02/15/25 10:28 40 MG Furosemide 40 mg BIDD IV 02/12/25 06:00 02/15/25 06:22 40 MG Levothyroxine Sodium 200 mcg QAM@0600 PO 02/12/25 06:00 02/15/25 06:21 200 MCG Lactulose 30 ml BID PO 02/12/25 22:00 02/14/25 21:29 30 ML Tamsulosin HCl 0.4 mg QPM PO 02/12/25 18:00 02/14/25 16:58 0.4 MG Amiodarone HCl 200 mg Q12HR PO 02/12/25 22:00 02/15/25 10:28 200 MG Empaglifozin 10 mg DAILY PO 02/13/25 10:00 02/15/25 10:28 10 MG Sacubitril/ Valsartan 0.5 tab BID PO 02/12/25 22:00 02/14/25 21:30 0.5 TAB Metoprolol Tartrate 12.5 mg BID PO 02/12/25 22:00 02/14/25 21:30 12.5 MG Acetaminophen/ Hydrocodone Bitart 1 tab Q6HPRN PRN PO 02/13/25 12:15 02/15/25 00:14 1 TAB Patient Own Medication 10 mg BID PO 02/16/25 10:00 02/22/25 10:00 UNV Apixaban 10 mg BID PO 02/15/25 22:00 laboratory and microbiology Laboratory Tests 02/12/25 10:30 02/12/25 03:20 Test 02/12/25 03:20 Range/Units Serum Glucose 428 *H 74-106 mg/dL Assessment/Plan Impression: Acute hypoxic respiratory failure Dependence on supplemental oxygen Pulmonary embolism Pleural effusion Atelectasis Constipation Pulmonary edema Congestive heart failure Bronchiectasis Pneumonia, likely GNR Obesity, BMI 34.2 Events: Remains on supplemental oxygen, 2.5 LPM NC Taper O2 as tolerated Patient is feeling better. Head of bed elevation Aspiration precautions Continue antibiotics Incentive spirometry Diurese with Lasix Monitor renal function. Monitor electrolytes. Supplement as necessary. Monitor ins and outs. Therapeutic Lovenox for PE. On puree diet, eating well. Labs and imaging reviewed. Rest of plan as noted below. Plan: Supplemental oxygen Titrate to keep O2 sats above 92%. CT angio chest revealed lobar pulmonary embolism in the left pulmonary artery. Pulmonary edema and bilateral pleural effusions concerning for congestive heart failure. Left upper lobe bronchiectasis and consolidation concerning for infectious etiology. Cardiomegaly Limited chest ultrasound revealed pleural effusion is not amenable for thoracentesis. Continue antibiotics Incentive spirometry for atelectasis Amiodarone PO for AFib Accu-Cheks, ISS PRN. Lactulose due to constipation. Therapeutic Lovenox for anticoagulation for PE. Protonix for GI prophylaxis Diurese with Lasix BID Monitor renal function. Monitor electrolytes. Supplement as necessary. Monitor ins and outs. Diet and lifestyle modifications for weight reduction Obesity - complicates all care DVT prophylaxis. Prognosis: Poor given patient's multiple co-morbidities. Dietary Evaluation Review Comments: 1. CCHO-60 pureed diet 2. Addi BID for wound healing Expected Outcomes/Goals: controlled blood sugar, gradually healed wounds Plan discussed with: Patient ALLAN ZUNIGA MD Feb 15, 2025 13:19
--- NOTE | 2025-02-15 14:36 | DVHPN2 ---
Progress Note - Dictate Date Seen: Feb 15, 2025 Medical Necessity Reason Pt with a Central, PICC or Fol: Yes The following are medically ne: Kong Catheter Reason for kong catheter: Strict I&O Medical Necessity Reason Asymptomatic right nephrolithiasis Subjective Patient is alert and oriented to her name and location. She was able to tell me that she was in hospital. She does not know the year of her and current time. vital signs Vital Sign Date Time Temp Pulse Resp B/P (MAP) Pulse Ox O2 Delivery O2 Flow Rate FiO2 02/15/25 13:00 98.1 81 16 112/71 (85) 97 98.1 02/15/25 08:12 Simple Mask* 6 50 Total Intake and Output 02/14/25 02/14/25 02/15/25 15:00 23:00 07:00 Intake Total 640 ml 960 ml Output Total 2950 ml 1450 ml Balance -2310 ml -490 ml medications Current Medications Medications Dose Ordered Sig/Lindsey Route Start Time Stop Time Status Last Admin Dose Admin Sodium Chloride 10 ml Q8HR IV 02/12/25 06:00 02/15/25 06:22 10 ML Ondansetron HCl 4 mg Q4HP PRN IV 02/12/25 01:15 Nitroglycerin 0.4 mg Q5MINP PRN SL 02/12/25 01:15 Diagnostic Test (Pha) 1 strip IQ4HR 02/12/25 04:00 02/15/25 12:00 1 STRIP Insulin Human Regular IQ4HR SC 02/12/25 04:00 02/15/25 12:15 8 UNITS Dextrose 50 ml UD PRN IV 02/12/25 01:15 Piperacillin Sod/ Tazobactam Sod 100 ml @ 25 mls/hr Q8HR IV 02/12/25 14:00 02/15/25 06:20 25 MLS/HR Azithromycin 250 ml @ 125 mls/hr DAILY IV 02/13/25 10:00 02/15/25 10:28 125 MLS/HR Pantoprazole Sodium 40 mg DAILY IV 02/13/25 10:00 02/15/25 10:28 40 MG Furosemide 40 mg BIDD IV 02/12/25 06:00 02/15/25 06:22 40 MG Levothyroxine Sodium 200 mcg QAM@0600 PO 02/12/25 06:00 02/15/25 06:21 200 MCG Lactulose 30 ml BID PO 02/12/25 22:00 02/14/25 21:29 30 ML Tamsulosin HCl 0.4 mg QPM PO 02/12/25 18:00 02/14/25 16:58 0.4 MG Amiodarone HCl 200 mg Q12HR PO 02/12/25 22:00 02/15/25 10:28 200 MG Empaglifozin 10 mg DAILY PO 02/13/25 10:00 02/15/25 10:28 10 MG Sacubitril/ Valsartan 0.5 tab BID PO 02/12/25 22:00 02/14/25 21:30 0.5 TAB Metoprolol Tartrate 12.5 mg BID PO 02/12/25 22:00 02/14/25 21:30 12.5 MG Acetaminophen/ Hydrocodone Bitart 1 tab Q6HPRN PRN PO 02/13/25 12:15 02/15/25 00:14 1 TAB Patient Own Medication 10 mg BID PO 02/16/25 10:00 02/22/25 10:00 UNV Apixaban 10 mg BID PO 02/15/25 22:00 objective Nonobstructive right nephrolithiasis measuring 7 mm PATIENT: NAIMA PRINCE ACCT: [id number] UNIT: [id number] : 1955 LOC: OVERFLOW ROOM / BED: [address] [place] [address] AGE / SEX: 69 / F ADM STATUS: ADM IN SERVICE 0146 ORDERING PHYSICIAN: GENNARO CASTILLO RESIDENT PROCEDURE(s): ABPL - CT AB PEL WO CON-NO ORAL OR IV REASON: ABDOMINAL PAIN ORDER NUMBER(s): [id number], ACCESSION NUMBER(s): [id number] Exam: CT CT AB PEL WO CON-NO ORAL OR IV History: ABDOMINAL PAIN Comparison Study: None Technique: Multidetector spiral CT of the abdomen and pelvis was performed from lung bases to pubic symphysis. Imaging was performed without intravenous contrast. Coronal and sagittal multiplanar reformats were obtained from the axial data set by the technologist. Radiation Dose : 1. Abdomen/Pelvis: CTDIvol 28.58 mGy, DLP 2581.4 mGy*cm. Findings: Evaluation of vasculature and solid organs is limited due to lack of intravenous contrast use. Lung Bases: Please see separate CT of the chest. Liver: The liver is normal in size. No focal lesions. Gallbladder and Biliary Tree: The gallbladder is unremarkable. No intrahepatic or extrahepatic biliary ductal dilatation. Spleen: Unremarkable Pancreas: The pancreas is grossly unremarkable. Adrenal Glands: Unremarkable Kidneys: There is a 7 mm nonobstructive calculus in the right renal pelvis. Additional 3 mm nonobstructive stone in the upper pole of the right kidney. No hydronephrosis. GI tract: The stomach is grossly normal in appearance. No evidence of small bowel wall thickening or abnormal dilatation to suggest bowel obstruction. There is stool throughout the colon. Normal appendix. Peritoneum/mesentery/retroperitoneum. No evidence of free intraperitoneal air. No ascites. No evidence of suspicious lymphadenopathy. Abdominal Wall: Unremarkable. Vasculature: The visualized abdominal aorta is normal in size and caliber. Evaluation of abdominal and pelvic vessels is limited due to lack of intravenous contrast. Urinary Bladder: Kong catheter in the urinary bladder. Urinary bladder is contracted. Pelvic Organs: Unremarkable. Musculoskeletal: No aggressive focal bony lesions, acute fractures or dislocation. IMPRESSION: 1. 7mm nonobstructive calculus in the right renal pelvis. Additional 3 mm nonobstructive stone in the upper pole of the right kidney. 2. Kong catheter in the urinary bladder. Urinary bladder is contracted. 3. Stool throughout the colon may suggest constipation. 4. Please see separate CT chest same date. ATED BY: RADHA DE LEON MD DICTATED DATE/TIME: 02/12/25723 SIGNED BY: RADHA DE LEON MD SIGNED DATE/TIME: 02/12/25723 CC: laboratory and microbiology Laboratory Tests 02/12/25 10:30 02/12/25 03:20 Test 02/12/25 03:20 Range/Units Serum Glucose 428 *H 74-106 mg/dL Problem List Hospice patient Asymptomatic 7 mm right nephrolithiasis Unable to obtain proper consent for lithotripsy Patient on Eliquis which will need to be discontinued five days prior to lithotripsy Assessment/Plan We will cancel her procedure today. If feasible, we will need to discontinue Eliquis for five days, obtain proper consent and treat as outpatient Signing off Dietary Evaluation Review Comments: 1. CCHO-60 pureed diet 2. Addi BID for wound healing Expected Outcomes/Goals: controlled blood sugar, gradually healed wounds Plan discussed with: Patient (Patient has two daughters but we are unable to contact them), Other SYED LAKHANI MD Feb 15, 2025 14:36
[2025-02-15 14:57] LABS: Sodium 140 mmol/L (136-145)
[2025-02-15 14:58] LABS: Anion Gap 8 (5-15); Calcium 8.9 mg/dL (8.7-10.4)
[2025-02-15 15:02] LABS: Carbon Dioxide 37 mmol/L (20-31); Chloride 95 mmol/L (98-107); Potassium 3.4 mmol/L (3.5-5.1)
[2025-02-15 15:03] LABS: BUN/Creatinine Ratio 19.2 (10.0-20.0); Blood Urea Nitrogen 14 mg/dL (9-23)
[2025-02-15 15:06] LABS: Glucose 131 mg/dL (74-106)
[2025-02-15] MEDS: APIXABAN 5 MG TAB PO SCH (21:31)
--- NOTE | 2025-02-15 23:17 | DVHPN2 ---
Progress Note - Dictate Date Seen: Feb 15, 2025 Medical Necessity Reason Pt with a Central, PICC or Fol: Yes The following are medically ne: Kong Catheter Reason for kong catheter: Strict I&O Subjective Patient was seen and evaluated in follow up. Patient reports feeling short of breath. Patient remains on 6 L via mask. BS in the 190s. Telemetry reviewed. vital signs Vital Sign Date Time Temp Pulse Resp B/P (MAP) Pulse Ox O2 Delivery O2 Flow Rate FiO2 02/15/25 09:00 98.2 71 18 105/68 (80) 96 98.2 02/15/25 08:12 Simple Mask* 6 50 Total Intake and Output 02/14/25 02/14/25 02/15/25 15:00 23:00 07:00 Intake Total 640 ml 960 ml Output Total 2950 ml 1450 ml Balance -2310 ml -490 ml medications Current Medications Medications Dose Ordered Sig/Lindsey Route Start Time Stop Time Status Last Admin Dose Admin Sodium Chloride 10 ml Q8HR IV 02/12/25 06:00 02/15/25 06:22 10 ML Ondansetron HCl 4 mg Q4HP PRN IV 02/12/25 01:15 Nitroglycerin 0.4 mg Q5MINP PRN SL 02/12/25 01:15 Diagnostic Test (Pha) 1 strip IQ4HR 02/12/25 04:00 02/15/25 08:00 1 STRIP Insulin Human Regular IQ4HR SC 02/12/25 04:00 02/15/25 04:26 2 UNITS Dextrose 50 ml UD PRN IV 02/12/25 01:15 Piperacillin Sod/ Tazobactam Sod 100 ml @ 25 mls/hr Q8HR IV 02/12/25 14:00 02/15/25 06:20 25 MLS/HR Azithromycin 250 ml @ 125 mls/hr DAILY IV 02/13/25 10:00 02/15/25 10:28 125 MLS/HR Pantoprazole Sodium 40 mg DAILY IV 02/13/25 10:00 02/15/25 10:28 40 MG Furosemide 40 mg BIDD IV 02/12/25 06:00 02/15/25 06:22 40 MG Levothyroxine Sodium 200 mcg QAM@0600 PO 02/12/25 06:00 02/15/25 06:21 200 MCG Lactulose 30 ml BID PO 02/12/25 22:00 02/14/25 21:29 30 ML Tamsulosin HCl 0.4 mg QPM PO 02/12/25 18:00 02/14/25 16:58 0.4 MG Amiodarone HCl 200 mg Q12HR PO 02/12/25 22:00 02/15/25 10:28 200 MG Empaglifozin 10 mg DAILY PO 02/13/25 10:00 02/15/25 10:28 10 MG Sacubitril/ Valsartan 0.5 tab BID PO 02/12/25 22:00 02/14/25 21:30 0.5 TAB Metoprolol Tartrate 12.5 mg BID PO 02/12/25 22:00 02/14/25 21:30 12.5 MG Acetaminophen/ Hydrocodone Bitart 1 tab Q6HPRN PRN PO 02/13/25 12:15 02/15/25 00:14 1 TAB Patient Own Medication 10 mg BID PO 02/16/25 10:00 02/22/25 10:00 UNV Apixaban 10 mg BID PO 02/15/25 22:00 objective GENERAL: No acute distress. EYES: PERRL, EOMI. Anicteric. HENT: Moist mucous membranes. LUNGS: Clear to auscultation bilaterally. CARDIOVASCULAR: Regular rate and rhythm. ABDOMEN: Soft, non-tender and non-distended. EXTREMITIES: No edema. NEUROLOGIC: Mild cognitive impairment. Dysarthria. Right-sided hemiparesis/hemiplegia SKIN: Warm, dry. laboratory and microbiology Laboratory Tests 02/12/25 10:30 02/12/25 03:20 Test 02/12/25 03:20 Range/Units Serum Glucose 428 *H 74-106 mg/dL Problem List Acute on chronic decompensated HFpEF, NYHA Class III, newly diagnosed. Paroxysmal atrial fibrillation with rapid ventricular rate (Stage IIIa), now NSR, newly diagnosed. Acute hypoxic respiratory failure. Acute pulmonary embolism. Bilateral pleural effusions, small. Pneumonia. Right nephrolithiasis. Insulin-dependent diabetes mellitus with hyperglycemia. NSTEMI, likely type 2 secondary to above. History of CVA with dysarthria/right-sided hemiplegia/hemiparesis. Recent hospice care status prior to admission. Obesity. Assessment/Plan Continued all current supportive medical care. GI prophylactics. IV antibiotics as ordered. Amiodarone. Diuretics with Lasix. Eliquis. Liberty for pain management. Nitro SL. Additional plan as per the hospital course. Dietary Evaluation Review Comments: 1. CCHO-60 pureed diet 2. Addi BID for wound healing Expected Outcomes/Goals: controlled blood sugar, gradually healed wounds Plan discussed with: Patient XOCHITL WISEMAN MD Feb 15, 2025 11:56
[2025-02-16 01:00] VITALS: BP 90/57; PULSE 72; RESP 18; TEMP 97.1; O2SAT 99
[2025-02-16 05:00] VITALS: BP 109/72; PULSE 68; RESP 18; TEMP 98; O2SAT 96
[2025-02-16 08:00] VITALS: PULSE 75
[2025-02-16 09:00] VITALS: BP 115/69; PULSE 63; RESP 17; TEMP 97; O2SAT 96
--- NOTE | 2025-02-16 09:47 | DVHPN2 ---
Reviewed: Care Plan, H&P, Labs, Medications, Previous Orders, Radiology Changes from previous H/P or p: No Changes Objective Vitals Vital Signs Date Time Temp Pulse Resp B/P (MAP) Pulse Ox O2 Delivery O2 Flow Rate FiO2 02/16/25 06:10 120/66 02/16/25 05:00 98.0 68 18 96 98.0 02/15/25 20:00 Nasal Cannula* 3 32 Intake/Output Intake and Output 02/16/25 07:00 Intake Total 1475 ml Output Total 1975 ml Balance -500 ml Intake Oral 1025 ml IV Total 450 ml Output Urine Total 1975 ml Medications Current Medications Medications Dose Ordered Sig/Lindsey Route Start Time Stop Time Status Last Admin Dose Admin Sodium Chloride 10 ml Q8HR IV 02/12/25 06:00 02/16/25 06:07 10 ML Ondansetron HCl 4 mg Q4HP PRN IV 02/12/25 01:15 Nitroglycerin 0.4 mg Q5MINP PRN SL 02/12/25 01:15 Diagnostic Test (Pha) 1 strip IQ4HR 02/12/25 04:00 02/16/25 04:21 1 STRIP Insulin Human Regular IQ4HR SC 02/12/25 04:00 02/16/25 00:49 8 UNITS Dextrose 50 ml UD PRN IV 02/12/25 01:15 Piperacillin Sod/ Tazobactam Sod 100 ml @ 25 mls/hr Q8HR IV 02/12/25 14:00 02/16/25 06:07 25 MLS/HR Azithromycin 250 ml @ 125 mls/hr DAILY IV 02/13/25 10:00 02/15/25 10:28 125 MLS/HR Pantoprazole Sodium 40 mg DAILY IV 02/13/25 10:00 02/15/25 10:28 40 MG Furosemide 40 mg BIDD IV 02/12/25 06:00 02/16/25 06:10 40 MG Levothyroxine Sodium 200 mcg QAM@0600 PO 02/12/25 06:00 02/16/25 06:07 200 MCG Lactulose 30 ml BID PO 02/12/25 22:00 02/15/25 21:31 30 ML Tamsulosin HCl 0.4 mg QPM PO 02/12/25 18:00 02/15/25 17:22 0.4 MG Amiodarone HCl 200 mg Q12HR PO 02/12/25 22:00 02/15/25 21:32 200 MG Empaglifozin 10 mg DAILY PO 02/13/25 10:00 02/15/25 10:28 10 MG Sacubitril/ Valsartan 0.5 tab BID PO 02/12/25 22:00 02/15/25 21:32 0.5 TAB Metoprolol Tartrate 12.5 mg BID PO 02/12/25 22:00 02/14/25 21:30 12.5 MG Acetaminophen/ Hydrocodone Bitart 1 tab Q6HPRN PRN PO 02/13/25 12:15 02/15/25 21:49 1 TAB Patient Own Medication 10 mg BID PO 02/16/25 10:00 02/22/25 10:00 UNV Apixaban 10 mg BID PO 02/15/25 22:00 02/15/25 21:31 10 MG Laboratory Results Laboratory Tests 02/12/25 10:30 02/15/25 14:30 Chemistry Test 02/15/25 14:30 Calcium Level 8.9 mg/dL (8.7-10.4) Urinalysis Test 02/12/25 00:30 Urine Color Colorless (Yellow) Urine Clarity Turbid (Clear) H Urine pH 5.0 (5.0-9.0) Urine Specific [place] 1.008 (1.001-1.035) Urine Protein Negative (Negative) Urine Ketones Negative (Negative) Urine Blood 1+ /uL (Negative) H Urine Nitrite Negative (Negative) Urine Bilirubin Negative (Negative) Urine Urobilinogen Normal mg/dL (Negative) Urine Leukocyte Esterase 3+ /uL (Negative) Urine RBC 35 /hpf (0 - 4) Urine Microscopic WBC 146 /HPF (0-5) H Urine Squamous Epithelial Cells None seen /hpf (<5) Urine Bacteria Many /hpf (None Seen) H Urine Hyaline Casts Few /lpf (0 - 2) Urine Mucus Few (None Seen) Urine Yeast (Budding) Loaded /hpf (None Seen) Urine Glucose 2+ mg/dL (Normal) H Microbiology Microbiology Date/Time Source Procedure Growth Status 02/12/25 07:44 Nose MRSA Screen - Final Complete 02/12/25 00:30 Voided Urine Urine Culture - Final Klebsiella pneumoniae Yeast, not Erika albicans Complete 02/11/25 21:43 Blood Blood Culture - Preliminary NO GROWTH AFTER 72 HOURS OF INCUBATION. Resulted Labs and/or images reviewed: Labs reviewed by me, Image(s) reviewed by me Assessment/Plan Assessment/Plan Acute hypoxic respiratory failure: Oxygen by mask, consult by Dr. Person appreciated Septic Shock secondary to acute urinary tract infection: Blood cultures urine cultures Acute on chronic decompensated HFpEF, NYHA Class III, newly diagnosed, metoprolol Entresto Jardiance Lasix, cardiology consult by Dr. Curry appreciated Paroxysmal atrial fibrillation with rapid ventricular rate (Stage IIIa), now NSR, newly diagnosed treated with amiodarone drip now on amiodarone p.o. Acute hypoxic respiratory failure Acute left pulmonary embolism: Lovenox therapeutic dose, transitioned to Eliquis DVT ruled out Bilateral pleural effusions, small Left upper lobe community-acquired pneumonia Gram-positive versus Gram-negative, Rocephin, azithromycin UTI urine cultures growing E coli sensitive to Rocephin also yeast not Erika: Placed on micafungin Right nephrolithiasis: Dr. Bashir planning for lithotripsy, postponed as the patient is on Eliquis and entresto, discussed with the patient and she does not want lithotripsy at the present admission Legally blind and hard of hearing Insulin-dependent diabetes mellitus with hyperglycemia NSTEMI, likely type 2 secondary to above Hx CVA with dysarthria/right-sided hemiplegia/hemiparesis Hospice revoked Severe malnutrition Discussed with the patient about IV antibiotics pneumonia and UTI and she is willing to go to alf facility Plan discussed with: Patient My Orders Orders - JESSE WOO MD Procedure Category Date Status Time Apixaban (Eliquis) PHA 02/15/25 In Process 22:00 Date of Service: Feb 16, 2025 Billing Provider: JESSE WOO MD Common Visit Codes: [id number] INP/OBS CARE(HIGH) JESSE WOO MD Feb 16, 2025 09:47
--- NOTE | 2025-02-16 09:57 | DVHDS2 ---
Discharge Summary Date of Admission Feb 12, 2025 at 01:09 Date of Discharge: Feb 16, 2025 Admitting Diagnosis Generalized weakness Wounds: None Labs/Diagnostic Data: Laboratory Results Test 02/16/25 09:30 02/15/25 14:30 02/12/25 10:30 02/12/25 03:20 POC Glucose 221 mg/dl (70-106) Sodium Level 140 mmol/L (136-145) Potassium Level 3.4 mmol/L (3.5-5.1) Chloride Level 95 mmol/L (98-107) Carbon Dioxide Level 37 mmol/L (20-31) Anion Gap 8 (5-15) Blood Urea Nitrogen 14 mg/dL (9-23) Creatinine 0.73 mg/dL (0.550-1.02) Glomerular Filtration Rate Calc 90 mL/min (>90) BUN/Creatinine Ratio 19.2 (10.0-20.0) Serum Glucose 131 mg/dL (74-106) Calcium Level 8.9 mg/dL (8.7-10.4) White Blood Count 8.4 10^3/uL (4.4-10.8) Red Blood Count 4.53 10^6/uL (4.0-5.20) Hemoglobin 12.0 g/dL (12.2-16.2) Hematocrit 36.7 % (36.0-46.0) Mean Corpuscular Volume 80.9 fL (80.0-100.0) Mean Corpuscular Hemoglobin 26.5 pg (28.0-32.0) Mean Corpuscular Hemoglobin Concent 32.7 g/dL (32.0-36.0) Red Cell Distribution Width 14.4 % (11.8-14.3) Platelet Count 270 10^3/uL (140-450) Mean Platelet Volume 8.3 fL (6.9-10.8) Neutrophils (%) (Auto) 72.1 % (37.0-80.0) Lymphocytes (%) (Auto) 19.4 % (10.0-50.0) Monocytes (%) (Auto) 7.1 % (0.0-12.0) Eosinophils (%) (Auto) 0.6 % (0.0-7.0) Basophils (%) (Auto) 0.8 % (0.0-2.0) Neutrophils # (Auto) 6.0 10 ^3/uL (1.6-8.6) Lymphocytes # (Auto) 1.6 10 ^3/uL (0.4-5.4) Monocytes # (Auto) 0.6 10 ^3/uL (0-1.3) Eosinophils # (Auto) 0.1 10 ^3/uL (0-0.8) Basophils # (Auto) 0.1 10 ^3/uL (0-0.2) Nucleated Red Blood Cells 0.1 % Prothrombin Time 11.4 sec (9.3-11.8) Prothrombin Time INR 1.08 (0.9-1.15) Hemoglobin A1c 12.0 % A1C (<5.7) Magnesium Level 3.0 mg/dL (1.6-2.6) Total Bilirubin 0.3 mg/dL (0.2-1.0) Aspartate Amino Transferase (AST) 8 U/L (13-40) Alanine Aminotransferase (ALT) < 9 U/L (7-40) Alkaline Phosphatase 85 U/L (46-116) Ammonia < 10 umol/L (11-32) Total Protein 6.2 g/dL (5.7-8.2) Albumin 3.6 g/dL (3.2-4.8) Triglycerides Level 115 mg/dL (< 150) Cholesterol Level 99 mg/dL (< 200) LDL Cholesterol 44 mg/dL (< 100) HDL Cholesterol 35 mg/dL (40-59) Test 02/12/25 01:15 02/12/25 01:09 02/12/25 00:30 02/11/25 23:12 Influenza Type A Antigen Negative (Negative) Influenza Type B Antigen Negative (Negative) SARS-CoV-2 Antigen (Rapid) Negative (NEGATIVE) Troponin I High Sensitivity 52 ng/L (</=34) Urine Color Colorless (Yellow) Urine Clarity Turbid (Clear) Urine pH 5.0 (5.0-9.0) Urine Specific [place] 1.008 (1.001-1.035) Urine Protein Negative (Negative) Urine Ketones Negative (Negative) Urine Blood 1+ /uL (Negative) Urine Nitrite Negative (Negative) Urine Bilirubin Negative (Negative) Urine Urobilinogen Normal mg/dL (Negative) Urine Leukocyte Esterase 3+ /uL (Negative) Urine RBC 35 /hpf (0 - 4) Urine Microscopic WBC 146 /HPF (0-5) Urine Squamous Epithelial Cells None seen /hpf (<5) Urine Bacteria Many /hpf (None Seen) Urine Hyaline Casts Few /lpf (0 - 2) Urine Mucus Few (None Seen) Urine Yeast (Budding) Loaded /hpf (None Seen) Urine Glucose 2+ mg/dL (Normal) Urine Opiates Screen Neg (NEGATIVE) Urine Fentanyl Screen Neg (NEGATIVE) Urine Barbiturates Screen Neg (NEGATIVE) Urine Phencyclidine Screen Neg (NEGATIVE) Urine Amphetamines Screen Neg (NEGATIVE) Urine Benzodiazepines Screen Neg (NEGATIVE) Urine Cocaine Screen Neg (NEGATIVE) Urine Cannabinoids Screen Neg (NEGATIVE) Lactic Acid Level 2.1 mmol/L (0.4-2.0) Test 02/11/25 21:43 Blood Gas Specimen Type Arterial Blood Gas Sample Site Left radial Blood Gas Patient Temperature 37.0 Arterial Blood Date Drawn [id number] Arterial Blood pH 7.446 (7.350-7.450) Arterial Blood Partial Pressure CO2 36.3 mmHg (32.0-45.0) Arterial Blood Partial Pressure O2 48.9 mmHg (83.0-108.0) Arterial Blood HCO3 24.4 mmol/L (21.0-28.0) Arterial Blood Oxygen Saturation 83.6 % (94.0-98.0) Arterial Blood Base Excess 0.7 mmol/L (-2.0-3.0) Arterial Blood Oxyhemoglobin 82.1 % (94.0-98.0) Arterial Blood Carboxyhemoglobin 1.4 % (0.5-1.5) Arterial Blood Methemoglobin 0.4 % (0.0-1.5) Julian Test Modified Blood Gas Total Hemoglobin 13.60 g/dL (12.0-16.0) Blood Gas Liter Flow 0.00 Blood Gas Modality Room air Blood Gas Spontaneous Rate 18 FiO2 % 21 Specimen Drawn By Steven esparza Blood Gas Critical Value Read Back Yes Blood Gas Notified Whom aubree Barrow Blood Gas Notified Time [id number] Blood Gas Notified By Steven kim rt B-Type Natriuretic Peptide 553.40 pg/mL (0-100) Lipase 21 U/L (12-53) Beta-Hydroxybutyric Acid 1.335 mmol/L (< 0.4) Thyroid Stimulating Hormone (TSH) 4.11 uIU/mL (0.55-4.78) Plasma/Serum Blood Alcohol < 3.0 mg/dL (<10) Other Laboratory Tests 02/15/25 14:30 02/12/25 10:30 Brief Hx & Hospital Course: 72-year-old female with multiple medical problems including congestive heart failure AFib chronic respiratory failure fall effusions came in for altered mental status and confusion found to be in sepsis secondary to left upper lobe community-acquired pneumonia and UTI. Treated with Rocephin azithromycin and Zosyn urine showed Klebsiella pneumoniae and yeast not Erika placed on Rocephin and Diflucan. Flagyl consult for Dr. Curry. Placed on Entresto Jardiance Lasix patient has a elevated D-dimer DVT was ruled out CT chest angiogram showed left pulmonary embolism started on Lovenox and transitioned to Eliquis also had right nephrolithiasis Dr. Mayfield postponed the lithotripsy secondary to patient being on Eliquis and Jardiance patient is legally blind and hard of hearing being sent to [facility] for IV antibiotics physical therapy medication management. Prognosis poor. Patient is hospice revoked and lives alone Consults/Reason for consult Cardiology Urology Operations or Procedures CT abdomen pelvis without contrast Condition at Discharge: Fair Final Diagnosis/Problems List Acute hypoxic respiratory failure: Oxygen by mask, consult by Dr. Person appreciated Septic Shock secondary to acute urinary tract infection: Blood cultures urine cultures Acute on chronic decompensated HFpEF, NYHA Class III, newly diagnosed, metoprolol Entresto Jardiance Lasix, cardiology consult by Dr. Curry appreciated Paroxysmal atrial fibrillation with rapid ventricular rate (Stage IIIa), now NSR, newly diagnosed treated with amiodarone drip now on amiodarone p.o. Acute hypoxic respiratory failure Acute left pulmonary embolism: Lovenox therapeutic dose, transitioned to Eliquis DVT ruled out Bilateral pleural effusions, small Left upper lobe community-acquired pneumonia Gram-positive versus Gram-negative, Rocephin, azithromycin UTI urine cultures growing E coli sensitive to Rocephin also yeast not Erika: Placed on micafungin Right nephrolithiasis: Dr. Bashir planning for lithotripsy, postponed as the patient is on Eliquis and entresto, discussed with the patient and she does not want lithotripsy at the present admission Legally blind and hard of hearing Insulin-dependent diabetes mellitus with hyperglycemia NSTEMI, likely type 2 secondary to above Hx CVA with dysarthria/right-sided hemiplegia/hemiparesis Hospice revoked Severe malnutrition Discharge Disposition: [facility] Facility Discharge Instruct/Medications Diet: Cardiac 2g Na,low cholest Activity: No Restrictions, As Tolerated Follow Up/Referral: Follow up with the longterm Dr Medications: Rocephin 1 g IV daily for two weeks for UTI and pneumonia 39 (Time Taken for discharge summary 39 minutes) Discharge Statement: "Patient was advised to return to the ER or call 911 if any headaches, dizziness, shortness of breath, chest pain, abdominal pain, bleeding, fevers, or worsening of medical condition. Patient was counseled about treatment plan, medications, possible side effects, patientverbalized understanding. All questions were answered to the best of my ability. This discharge took greater then 30 minutes in planning, reviewing documentation, counseling the patient, and discussing with other team members." ASSESSMENT ASSESSMENT Hospital Course Marginally improved Assessment Acute hypoxic respiratory failure: Oxygen by mask, consult by Dr. Person appreciated Septic Shock secondary to acute urinary tract infection: Blood cultures urine cultures Acute on chronic decompensated HFpEF, NYHA Class III, newly diagnosed, metoprolol Entresto Jardiance Lasix, cardiology consult by Dr. Curry appreciated Paroxysmal atrial fibrillation with rapid ventricular rate (Stage IIIa), now NSR, newly diagnosed treated with amiodarone aldo now on amiodarone p.o. Acute hypoxic respiratory failure Acute left pulmonary embolism: Lovenox therapeutic dose, transitioned to Eliquis DVT ruled out Bilateral pleural effusions, small Left upper lobe community-acquired pneumonia Gram-positive versus Gram-negative, Rocephin, azithromycin UTI urine cultures growing E coli sensitive to Rocephin also yeast not Erika: Placed on micafungin Right nephrolithiasis: Dr. Bashir planning for lithotripsy, postponed as the patient is on Eliquis and entresto, discussed with the patient and she does not want lithotripsy at the present admission Legally blind and hard of hearing Insulin-dependent diabetes mellitus with hyperglycemia NSTEMI, likely type 2 secondary to above Hx CVA with dysarthria/right-sided hemiplegia/hemiparesis Hospice revoked Severe malnutrition Date of Service: Feb 16, 2025 Billing Provider: JESSE WOO MD Common Visit Codes: [id number] DISCH DAY >30min JESSE WOO MD Feb 16, 2025 09:57
[2025-02-16] MEDS: AZITHROMYCIN 250 MG TAB PO SCH (11:58)
[2025-02-16] MEDS: FLUCONAZOLE 100 MG TAB PO ONE (11:59)
[2025-02-16] MEDS: cefTRIAXone 1GM/50ML D5W 50 ML IV ONE (12:01)
[2025-02-16 12:31] VITALS: BP 109/60; PULSE 86; RESP 17; TEMP 97.2; O2SAT 96
--- NOTE | 2025-02-16 13:05 | DVHPN2 ---
Progress Note - Dictate Date Seen: Feb 16, 2025 Medical Necessity Reason Pt with a Central, PICC or Fol: Yes The following are medically ne: Kong Catheter Reason for kong catheter: Strict I&O vital signs Vital Sign Date Time Temp Pulse Resp B/P (MAP) Pulse Ox O2 Delivery O2 Flow Rate FiO2 02/16/25 12:31 97.2 86 17 109/60 (76) 96 97.2 02/16/25 08:00 Nasal Cannula* 3 32 Total Intake and Output 02/15/25 02/15/25 02/16/25 15:00 23:00 07:00 Intake Total 200 ml 475 ml 800 ml Output Total 1225 ml 750 ml Balance 200 ml -750 ml 50 ml medications Current Medications Medications Dose Ordered Sig/Lindsey Route Start Time Stop Time Status Last Admin Dose Admin Sodium Chloride 10 ml Q8HR IV 02/12/25 06:00 02/16/25 06:07 10 ML Ondansetron HCl 4 mg Q4HP PRN IV 02/12/25 01:15 Nitroglycerin 0.4 mg Q5MINP PRN SL 02/12/25 01:15 Diagnostic Test (Pha) 1 strip IQ4HR 02/12/25 04:00 02/16/25 12:29 1 STRIP Insulin Human Regular IQ4HR SC 02/12/25 04:00 02/16/25 12:29 8 UNITS Dextrose 50 ml UD PRN IV 02/12/25 01:15 Pantoprazole Sodium 40 mg DAILY IV 02/13/25 10:00 02/16/25 09:57 40 MG Furosemide 40 mg BIDD IV 02/12/25 06:00 02/16/25 06:10 40 MG Levothyroxine Sodium 200 mcg QAM@0600 PO 02/12/25 06:00 02/16/25 06:07 200 MCG Lactulose 30 ml BID PO 02/12/25 22:00 02/15/25 21:31 30 ML Tamsulosin HCl 0.4 mg QPM PO 02/12/25 18:00 02/15/25 17:22 0.4 MG Amiodarone HCl 200 mg Q12HR PO 02/12/25 22:00 02/16/25 09:55 200 MG Empaglifozin 10 mg DAILY PO 02/13/25 10:00 02/16/25 09:54 10 MG Sacubitril/ Valsartan 0.5 tab BID PO 02/12/25 22:00 02/16/25 09:55 0.5 TAB Metoprolol Tartrate 12.5 mg BID PO 02/12/25 22:00 02/16/25 09:54 12.5 MG Acetaminophen/ Hydrocodone Bitart 1 tab Q6HPRN PRN PO 02/13/25 12:15 02/15/25 21:49 1 TAB Patient Own Medication 10 mg BID PO 02/16/25 10:00 02/22/25 10:00 UNV Apixaban 10 mg BID PO 02/15/25 22:00 02/16/25 09:55 10 MG Ceftriaxone Sodium 50 ml @ 100 mls/hr DAILY@ IV 02/17/25 09:00 Azithromycin 500 mg DAILY PO 02/16/25 10:00 02/16/25 11:58 500 MG Fluconazole 200 mg DAILY PO 02/17/25 10:00 laboratory and microbiology Laboratory Tests 02/15/25 14:30 02/12/25 10:30 Test 02/15/25 14:30 Range/Units Serum Glucose 131 H 74-106 mg/dL Assessment/Plan Impression: Acute hypoxic respiratory failure Dependence on supplemental oxygen Pulmonary embolism Pleural effusion Atelectasis Constipation Pulmonary edema Congestive heart failure Bronchiectasis Pneumonia Patient seen and examined Events Low oxygen requirements On 2 liters nasal cannula No distress Labs and imaging reviewed Management Head of bed elevation Aspiration precautions Continue antibiotics Incentive spirometry Diurese with Lasix Monitor renal function. Monitor electrolytes. Supplement as necessary. Monitor ins and outs. Therapeutic Lovenox for PE. Nutritional support Awaiting placement DVT prophylaxis Dietary Evaluation Review Comments: 1. CCHO-60 pureed diet 2. Addi BID for wound healing Expected Outcomes/Goals: controlled blood sugar, gradually healed wounds Plan discussed with: Patient ALLAN ZUNIGA MD Feb 16, 2025 13:05
[2025-02-16 16:37] VITALS: BP 113/60; PULSE 64; RESP 17; TEMP 96.6; O2SAT 97
--- NOTE | 2025-02-16 23:38 | DVHPN2 ---
Progress Note - Dictate Date Seen: Feb 16, 2025 Medical Necessity Reason Pt with a Central, PICC or Fol: Yes The following are medically ne: Kong Catheter Reason for kong catheter: Strict I&O Subjective Patient was seen and evaluated in follow up. Patient has no new complaints at this time. Patient denies any cardiac symptoms. Patient is pending placement at [facility]. Patient is cardiac stable for discharge. Telemetry reviewed. vital signs Vital Sign Date Time Temp Pulse Resp B/P (MAP) Pulse Ox O2 Delivery O2 Flow Rate FiO2 02/16/25 12:31 97.2 86 17 109/60 (76) 96 97.2 02/16/25 08:00 Nasal Cannula* 3 32 Total Intake and Output 02/15/25 02/15/25 02/16/25 15:00 23:00 07:00 Intake Total 200 ml 475 ml 800 ml Output Total 1225 ml 750 ml Balance 200 ml -750 ml 50 ml medications Current Medications Medications Dose Ordered Sig/Lindsey Route Start Time Stop Time Status Last Admin Dose Admin Sodium Chloride 10 ml Q8HR IV 02/12/25 06:00 02/16/25 06:07 10 ML Ondansetron HCl 4 mg Q4HP PRN IV 02/12/25 01:15 Nitroglycerin 0.4 mg Q5MINP PRN SL 02/12/25 01:15 Diagnostic Test (Pha) 1 strip IQ4HR 02/12/25 04:00 02/16/25 12:29 1 STRIP Insulin Human Regular IQ4HR SC 02/12/25 04:00 02/16/25 12:29 8 UNITS Dextrose 50 ml UD PRN IV 02/12/25 01:15 Pantoprazole Sodium 40 mg DAILY IV 02/13/25 10:00 02/16/25 09:57 40 MG Furosemide 40 mg BIDD IV 02/12/25 06:00 02/16/25 06:10 40 MG Levothyroxine Sodium 200 mcg QAM@0600 PO 02/12/25 06:00 02/16/25 06:07 200 MCG Lactulose 30 ml BID PO 02/12/25 22:00 02/15/25 21:31 30 ML Tamsulosin HCl 0.4 mg QPM PO 02/12/25 18:00 02/15/25 17:22 0.4 MG Amiodarone HCl 200 mg Q12HR PO 02/12/25 22:00 02/16/25 09:55 200 MG Empaglifozin 10 mg DAILY PO 02/13/25 10:00 02/16/25 09:54 10 MG Sacubitril/ Valsartan 0.5 tab BID PO 02/12/25 22:00 02/16/25 09:55 0.5 TAB Metoprolol Tartrate 12.5 mg BID PO 02/12/25 22:00 02/16/25 09:54 12.5 MG Acetaminophen/ Hydrocodone Bitart 1 tab Q6HPRN PRN PO 02/13/25 12:15 02/15/25 21:49 1 TAB Patient Own Medication 10 mg BID PO 02/16/25 10:00 02/22/25 10:00 UNV Apixaban 10 mg BID PO 02/15/25 22:00 02/16/25 09:55 10 MG Ceftriaxone Sodium 50 ml @ 100 mls/hr DAILY@09 IV 02/17/25 09:00 Azithromycin 500 mg DAILY PO 02/16/25 10:00 02/16/25 11:58 500 MG Fluconazole 200 mg DAILY PO 02/17/25 10:00 objective GENERAL: No acute distress. EYES: PERRL, EOMI. Anicteric. HENT: Moist mucous membranes. LUNGS: Clear to auscultation bilaterally. CARDIOVASCULAR: Regular rate and rhythm. ABDOMEN: Soft, non-tender and non-distended. EXTREMITIES: No edema. NEUROLOGIC: Mild cognitive impairment. Dysarthria. Right-sided hemiparesis/hemiplegia SKIN: Warm, dry. laboratory and microbiology Laboratory Tests 02/15/25 14:30 02/12/25 10:30 Test 02/15/25 14:30 Range/Units Serum Glucose 131 H 74-106 mg/dL Problem List Acute on chronic decompensated HFpEF, NYHA Class III, newly diagnosed. Paroxysmal atrial fibrillation with rapid ventricular rate (Stage IIIa), now NSR, newly diagnosed. Acute hypoxic respiratory failure. Acute pulmonary embolism. Bilateral pleural effusions, small. Pneumonia. Right nephrolithiasis. Insulin-dependent diabetes mellitus with hyperglycemia. NSTEMI, likely type 2 secondary to above. History of CVA with dysarthria/right-sided hemiplegia/hemiparesis. Recent hospice care status prior to admission. Obesity. Assessment/Plan Continued all current supportive medical care. GI prophylactics. IV antibiotics as ordered. Amiodarone. Diuretics with Lasix. Eliquis. Entresto. Nitro SL. Additional plan as per the hospital course. Dietary Evaluation Review Comments: 1. CCHO-60 pureed diet 2. Addi BID for wound healing Expected Outcomes/Goals: controlled blood sugar, gradually healed wounds Plan discussed with: Patient XOCHITL WISEMAN MD Feb 16, 2025 12:59
[2025-02-17] MEDS ORDERED: cefTRIAXone 1GM/50ML D5W 50 ML IV SCH (09:00)
[2025-02-17] MEDS ORDERED: FLUCONAZOLE 100 MG TAB PO SCH (10:00)
== END 2025-02-16 17:52 | DRG 871 ==
LOC: EDBD 20:56 → ER 20:56 → OVERFLOW 02-12 01:09 → TELE-EAST 02-13 22:23
PROVIDERS: ADMIT Family Medicine; ATTEND Family Medicine
PROC: 05HF33Z Insertion of Infusion Device into Left Cephalic Vein, Percutaneous Approach (ICD-10-PCS; principal; 2025-02-16)
PROC: B54NZZA Ultrasonography of Left Upper Extremity Veins, Guidance (ICD-10-PCS; 2025-02-16)
DX: A41.89 Other specified sepsis (principal); E43 Unspecified severe protein-calorie malnutrition; I26.99 Other pulmonary embolism without acute cor pulmonale; R65.21 Severe sepsis with septic shock; J96.21 Acute and chronic respiratory failure with hypoxia; I50.33 Acute on chronic diastolic (congestive) heart failure; J15.69 Pneumonia due to other Gram-negative bacteria; I21.A1 Myocardial infarction type 2; G93.41 Metabolic encephalopathy; J15.9 Unspecified bacterial pneumonia; N30.00 Acute cystitis without hematuria; E87.20 Acidosis, unspecified; J47.0 Bronchiectasis with acute lower respiratory infection; I69.351 Hemiplegia and hemiparesis following cerebral infarction affecting right dominant side; J98.11 Atelectasis; A41.9 Sepsis, unspecified organism; Z66 Do not resuscitate; J45.909 Unspecified asthma, uncomplicated; Z20.822 Contact with and (suspected) exposure to COVID-19; E11.65 Type 2 diabetes mellitus with hyperglycemia; E66.9 Obesity, unspecified; F32.9 Major depressive disorder, single episode, unspecified; I11.0 Hypertensive heart disease with heart failure; E03.9 Hypothyroidism, unspecified; I69.322 Dysarthria following cerebral infarction; Z68.34 Body mass index [BMI] 34.0-34.9, adult; N20.0 Calculus of kidney; Z99.81 Dependence on supplemental oxygen; K59.00 Constipation, unspecified; H54.8 Legal blindness, as defined in USA; I48.0 Paroxysmal atrial fibrillation; E78.5 Hyperlipidemia, unspecified; E83.42 Hypomagnesemia; F41.9 Anxiety disorder, unspecified; B96.20 Unspecified Escherichia coli [E. coli] as the cause of diseases classified elsewhere; Z79.899 Other long term (current) drug therapy; Z79.4 Long term (current) use of insulin; Z79.01 Long term (current) use of anticoagulants
CPT/HCPCS: 36415; 36600; 70450; 71045; 71275; 74176; 76604; 80048; 80053; 80061; 80307; 80320; 81001; 82010; 82140; 82805; 82962; 83036; 83605; 83690; 83735; 83880; 84443; 84484; 85025; 85610; 87040; 87081; 87086; 87088; 87186; 87426; 87804; 92610; 93005; 93306; 93970; 96361; 96374; 96375; 97163; G0378; J1815; J2470; J2543

== ENCOUNTER 2025-03-20 15:15 | Inpatient (IN) | payer OTHER, MEDICARE ==
[~2025-03-20] VITALS: Ht 162.6 cm; Wt 104.4 kg
--- NOTE | 2025-03-20 16:35 | ED.PDOC ---
HPI Comments 69y F who presents to the ED via EMS for chief complaint of chest pain. Pt is resident at [facility] and states she has been having chest pain for the past 2 days. pt states the pain is constant, radiating to the L arm, rating the pain 10/10, with no associated exacerbating or relieving factors. Pt otherwise in the ED presents to the ED with complaint of shortness of breath but denies any other complaints. Pt noted to be on 2 L via nasal canula. Pt otherwise has noted history of CHF, HTN, DM, and AFIB on amiodarone. Chief Complaint: Chest Pain Time Seen by MD: 16:30 Reviewed Notes: Medical Coding Manager Notes, Medications, Allergies Allergies: Coded Allergies: NO KNOWN ALLERGIES (Unverified , 02/11/25) Home Meds No Active Prescriptions or Reported Meds Information Source: Patient Mode of Arrival: EMS Past Medical History PAST MEDICAL HISTORY: Asthma, CVA, DM, HTN, Thyroid Surgical History: Denies all surgeries COMMUNICATIONS MARKETING INTERN History: Denies all COMMUNICATIONS MARKETING INTERN Hx Family History Family History: Unknown Social History Smoker: Non-Smoker Alcohol: Denies ETOH Use Drugs: Denies Drug Use Lives In: [facility] Constitutional: denies: chills, diaphoresis, fatigue, fever, malaise, sweats, weakness, others EENTM: denies: blurred vision, double vision, ear bleeding, ear discharge, ear drainage, ear pain, ear ringing, eye pain, eye redness, hearing loss, mouth pain, mouth swelling, nasal discharge, nose bleeding, nose congestion, nose pain, photophobia, tearing, throat pain, throat swelling, voice changes, others Respiratory: reports: shortness of breath; denies: cough, hemoptysis, orthopnea, SOB at rest, SOB with excertion, stridor, wheezing, others Cardiovascular: reports: chest pain; denies: dizzy spells, diaphoresis, Dyspnea on exertion, edema, irregular heart beat, left arm pain, lightheadedness, palpitations, PND, syncope, others Gastrointestinal: denies: abdomen distended, abdominal pain, blood streaked bowels, constipated, diarrhea, dysphagia, difficulty swallowing, hematemesis, melena, nausea, poor appetite, poor fluid intake, rectal bleeding, rectal pain, vomiting, others Genitourinary: denies: abnormal vagina bleeding, burning, dyspareunia, dysuria, flank pain, frequency, hematuria, incontinence, pain, , vagina discharge, urgency, others Neurological: denies: dizziness, fainting, headache, left sided numbness, left sided weakness, numbness, paresthesia, pre-existing deficit, right sided numbness, right sided weakness, seizure, speech problems, tingling, tremors, weakness, others Musculoskeletal: denies: back pain, gout, joint pain, joint swelling, muscle pain, muscle stiffness, neck pain, others Integumetry: denies: bruises, change in color, change in hair/nails, dryness, laceration, lesions, lumps, rash, wounds, others Allergic/Immunocompromised: denies: Difficulty Healing, Frequent Infections, Hives, Itching, others Hematologic/Lymphatic: denies: anemia, blood clots, easy bleeding, easy bruising, swollen glands, others Endocrine: denies: excessive hunger, excessive sweating, excessive thirst, excessive urination, flushing, intolerance to cold, intolerance to heat, unexplained weight gain, unexplained weight loss, others Psychiatric: denies: anxiety, bipolar disorder, depression, hopeless, panic disorder, schizophrenia, sleepless, suicidal, others All Other Systems: Reviewed and Negative Physical Exam General Appearance: Moderate Distress, Obese HEENT: Normal ENT Inspection, PERRL/EOMI, Other (Blind) Neck: Full Range of Motion, Non-Tender, Normal, Normal Inspection Respiratory: Chest Non-Tender, Lungs Clear, No Accessory Muscle Use, No Respir atory Distress, Normal Breath Sounds Cardiovascular: No Edema, No JVD, No Murmur, No Gallop, Normal Peripheral Pulses, Regular Rate/Rhythm Breast Exam: Deferred Gastrointestinal: No Organomegaly, Non Tender, No Pulsatile Mass, Normal Bowel Sounds, Soft, Other (Obesity) Genitalia: Deferred Pelvic: Deferred Rectal: Black stool Extremities: No calf tenderness, Normal capillary refill, Normal inspection, Normal range of motion, Non-tender, No pedal edema Neurologic: Alert, implementation consultant II-XII nml as Tested, No Motor Deficits, Normal Affect, Normal Mood, No Sensory Deficits Cerebellar Function: NOT DONE Reflexes: NOT DONE Skin: Dry, Normal Color, Warm, Wounds, Other (Multiple wound to the abdomen could be from insulin) Peripheral Pulses: 1+ carotid (R), 1+ carotid (L) Lymphatic: No Adenopathy EKG EKG : Pulse Rate (adult): 72 Lavinia: LAD Block: LBBB, IVCD Hypertrophy: LVH ST: Inf, Ischemia Was a procedure done? Was a procedure done?: No CP Differential Dx Differential Diagnosis: A-fib, A-Flutter, Angina, Anxiety / Panic Attack, Atrial Dysrhythmia, AV Block 1st Degree, Electrolyte Disorder, Heart Failure, VA, PVC's, Sinus Tachycardia Differential Diagnosis: HTN Essential, HTN Accelerated, HTN Encephalopathy Differential Diagnosis: Angina, Chest Wall Pain, Costochondritis, Esophageal reflux/spasm, Myocardial Infarction, Pneumonia X-Ray, Labs, Meds, VS Vital Signs Date Time Temp Pulse Resp B/P (MAP) Pulse Ox O2 Delivery O2 Flow Rate FiO2 03/20/25 20:16 68 20 98 Nasal Cannula* 2 28 03/20/25 20:16 98.1 62 20 92/47 (62) 98 98.1 03/20/25 20:00 61 03/20/25 18:40 54 17 100 Nasal Cannula* 2 28 03/20/25 18:11 65 17 105/52 03/20/25 18:00 72 17 105/52 (69) 98 03/20/25 17:41 72 16 120/62 03/20/25 17:08 72 03/20/25 17:00 72 19 120/62 (81) 97 03/20/25 16:58 98.8 82 15 117/88 (98) 98 98.8 03/20/25 16:25 74 03/20/25 15:21 98.1 77 16 126/78 93 98.1 03/20/25 15:18 72 Lab Test 03/20/25 20:40 03/20/25 19:39 03/20/25 18:30 03/20/25 18:28 Range/Units Troponin I High Sensitivity 17 17 </=34 ng/L POC Glucose 345 H 70-106 mg/dl Urine Color Light-yellow Yellow Urine Clarity Turbid H Clear Urine pH 5.0 5.0-9.0 Urine Specific [place] 1.028 1.001-1.035 Urine Protein Negative Negative Urine Ketones Trace Negative Urine Blood Negative Negative /uL Urine Nitrite Negative Negative Urine Bilirubin Negative Negative Urine Urobilinogen Normal Negative mg/dL Urine Leukocyte Esterase 3+ Negative /uL Urine RBC 69 0 - 4 /hpf Urine Microscopic WBC 205 H 0-5 /HPF Urine Squamous Epithelial Cells None seen <5 /hpf Urine Bacteria None seen None Seen /hpf Urine Mucus Few None Seen Urine Yeast (Budding) Many None Seen /hpf Urine Glucose 4+ H Normal mg/dL Test 03/20/25 17:30 Range/Units White Blood Count 9.2 4.4-10.8 10^3/uL Red Blood Count 5.35 H 4.0-5.20 10^6/uL Hemoglobin 14.2 12.2-16.2 g/dL Hematocrit 43.7 36.0-46.0 % Mean Corpuscular Volume 81.7 80.0-100.0 fL Mean Corpuscular Hemoglobin 26.5 L 28.0-32.0 pg Mean Corpuscular Hemoglobin Concent 32.5 32.0-36.0 g/dL Red Cell Distribution Width 16.7 H 11.8-14.3 % Platelet Count 285 140-450 10^3/uL Mean Platelet Volume 8.2 6.9-10.8 fL Neutrophils (%) (Auto) 76.6 37.0-80.0 % Lymphocytes (%) (Auto) 16.0 10.0-50.0 % Monocytes (%) (Auto) 5.1 0.0-12.0 % Eosinophils (%) (Auto) 1.6 0.0-7.0 % Basophils (%) (Auto) 0.7 0.0-2.0 % Neutrophils # (Auto) 7.0 1.6-8.6 10 ^3/uL Lymphocytes # (Auto) 1.5 0.4-5.4 10 ^3/uL Monocytes # (Auto) 0.5 0-1.3 10 ^3/uL Eosinophils # (Auto) 0.1 0-0.8 10 ^3/uL Basophils # (Auto) 0.1 0-0.2 10 ^3/uL Nucleated Red Blood Cells 0.0 % Prothrombin Time 10.1 9.3-11.8 sec Prothrombin Time INR 0.95 0.9-1.15 Activated Partial Thromboplast Time 23.7 L 24.5-34.5 SEC D-Dimer, Quantitative 0.59 H 0.0-0.49 mg/L FEU Sodium Level 136 136-145 mmol/L Potassium Level 4.2 3.5-5.1 mmol/L Chloride Level 99 98-107 mmol/L Carbon Dioxide Level 27 20-31 mmol/L Anion Gap 10 5-15 Blood Urea Nitrogen 25 H 9-23 mg/dL Creatinine 1.04 H 0.550-1.02 mg/dL Glomerular Filtration Rate Calc 59 >90 mL/min BUN/Creatinine Ratio 24.0 H 10.0-20.0 Serum Glucose 427 *H 74-106 mg/dL Calcium Level 9.6 8.7-10.4 mg/dL Magnesium Level 2.0 1.6-2.6 mg/dL Total Bilirubin 0.5 0.2-1.0 mg/dL Aspartate Amino Transferase (AST) 14 13-40 U/L Alanine Aminotransferase (ALT) 19 7-40 U/L Alkaline Phosphatase 114 46-116 U/L Troponin I High Sensitivity 17 </=34 ng/L B-Type Natriuretic Peptide 95.18 0-100 pg/mL Total Protein 6.9 5.7-8.2 g/dL Albumin 4.2 3.2-4.8 g/dL Thyroid Stimulating Hormone (TSH) 10.14 H 0.55-4.78 uIU/mL Current Medications Medications (Trade) Dose Ordered Sig/Lindsey Route Start Time Stop Time Status Last Admin Aspirin 162 mg ONCE ONCE PO 03/20/25 16:30 03/20/25 16:31 DC 03/20/25 17:40 Morphine Sulfate 3 mg ONCE ONCE IV 03/20/25 16:30 03/20/25 16:31 DC 03/20/25 17:41 Sodium Chloride 1,000 ml @ 150 mls/hr Q6H40M ONCE IV 03/20/25 16:30 03/20/25 23:09 03/20/25 17:40 Ondansetron HCl (Zofran) 4 mg ONCE ONCE IV 03/20/25 16:30 03/20/25 16:31 DC 03/20/25 17:40 Insulin Human Regular (InsuLIN R) 10 units ONCE ONCE IV 03/20/25 19:15 03/20/25 19:16 DC 03/20/25 19:24 Insulin Human Regular (InsuLIN R) 10 units ONCE ONCE IV 03/20/25 21:00 03/20/25 21:01 DC 03/20/25 21:[address] [address] Ph: [phone] DIAGNOSTIC IMAGING Diagnostic Imaging Report : [id number] Signed PATIENT: NAIMA PRINCE ACCT: [id number] UNIT: [id number] : 1955 LOC: ER ROOM / BED: / AGE / SEX: 69 / F ADM STATUS: REG ER SERVICE 1621 ORDERING PHYSICIAN: TRACY MCMAHAN MD PROCEDURE(s): CXRP - CHEST PORTABLE REASON: Chest pain ORDER NUMBER(s): [id number], ACCESSION NUMBER(s): [id number] CHEST RADIOGRAPH Indication: Chest pain Technique: Single frontal view of the chest was obtained COMPARISON: CT CT ANGIO CHEST CONTRAST on DOS: 02/12/25, US CHEST ULTRASOUND on DOS: 02/12/25, XY CHEST XRAY 1 VIEW on DOS: 02/11/25 FINDINGS: Lines and Tubes: None Lungs: Prominent infiltrate left lung, stable Probable right pleural effusion, stable No pneumothorax. Cardiomediastinal contours: Stable cardiomegaly Bones: Unremarkable IMPRESSION: 1. No interval change when compared to the prior study of 02/11/2025 ATED BY: DORA SANTIAGO MD DICTATED DATE/TIME: 03/20/251658 SIGNED BY: DORA SANTIAGO MD SIGNED DATE/TIME: 03/20/251658 CC: X-Ray, Labs, Meds, VS Comment Course in the emergency department patient came in by ambulance from [facility] with a severe chest pain 10 10 for the past two days radiating to her left arm and also shortness of breath her blood pressure is 126/78 her blood sugar was 399 chest x-ray shows pneumonia to the left cardiomegaly and and right pleural effusion no change since last x-rays were taken EKG shows normal sinus with normal sinus rhythm lad LVH IVCD Blood sugar is 427 patient received insulin BNP 95.18 CBC normal Urine shows 4+ glucose 2+ leukocyte esterase many yeast and 3+ blood D-dimer 0.59 INR 0.95 CMP GFR at 59 magnesium at 2.0 Troponin 17 and 17 TSH 10.14 Patient will be admitted for further care Time of 1ST Reevaluation: 16:30 Reevaluation 1ST: Unchanged Time of 2ND Reevaluation: 19:27 Reevaluation 2ND: Unchanged Patient Education/Counseling: Diagnosis, Treatment, Prognosis Family Education/Counseling: Diagnosis, Treatment, Prognosis, No Family Present SEPSIS Sepsis Screen Date sepsis recognized/suspect: Mar 20, 2025 Time Sepsis recognized/suspect: 1523 Recent Procedure: No On Antibiotic Therapy: No Respiratory Rate >20: No Heart Rate >90: No Temp<36 C (96.8 F) or >38.3 C: No SBP <90 or MAP <65 mmHG: No New Acute Mental Status Change: No Is the patient on CPAP, BIPAP,: No Physician Orders Electrocardigram (03/20/25 16:31) Electrocardigram (03/20/25 18:31) Chest Portable (03/20/25 16:21) Heplock Iv (03/20/25 16:21) Tent Assembler (03/20/25 16:21) Blood Pressure (03/20/25 16:21) Oxygen (03/20/25 16:21) Pulse Oximetry (03/20/25 16:21) Sodium Chloride 0.9% (03/20/25 16:30) * Wound Consult (03/20/25 ) Vital Signs Date Time Temp Pulse Resp B/P (MAP) Pulse Ox O2 Delivery O2 Flow Rate FiO2 03/20/25 20:16 68 20 98 Nasal Cannula* 2 28 03/20/25 20:16 98.1 62 20 92/47 (62) 98 98.1 03/20/25 20:00 61 03/20/25 18:40 54 17 100 Nasal Cannula* 2 28 03/20/25 18:11 65 17 105/52 03/20/25 18:00 72 17 105/52 (69) 98 03/20/25 17:41 72 16 120/62 03/20/25 17:08 72 03/20/25 17:00 72 19 120/62 (81) 97 03/20/25 16:58 98.8 82 15 117/88 (98) 98 98.8 03/20/25 16:25 74 03/20/25 15:21 98.1 77 16 126/78 93 98.1 03/20/25 15:18 72 Laboratory Tests Test 03/20/25 17:30 White Blood Count 9.2 10^3/uL (4.4-10.8) Medications Medications Dose Ordered Sig/Lindsey Route Start Time Stop Time Status Last Admin Dose Admin Aspirin 162 mg ONCE ONCE PO 03/20/25 16:30 03/20/25 16:31 DC 03/20/25 17:40 Insulin Human Regular 10 units ONCE ONCE IV 03/20/25 19:15 03/20/25 19:16 DC 03/20/25 19:24 Insulin Human Regular 10 units ONCE ONCE IV 03/20/25 21:00 03/20/25 21:01 DC 03/20/25 21:04 Morphine Sulfate 3 mg ONCE ONCE IV 03/20/25 16:30 03/20/25 16:31 DC 03/20/25 17:41 Ondansetron HCl 4 mg ONCE ONCE IV 03/20/25 16:30 03/20/25 16:31 DC 03/20/25 17:40 Sodium Chloride 1,000 ml @ 150 mls/hr Q6H40M ONCE IV 03/20/25 16:30 03/20/25 23:09 03/20/25 17:40 Departure 1 Departure Time of Disposition: 19:19 Impression: Primary Impression: Acute chest pain Additional Impressions: Uncontrolled diabetes mellitus Persistent pneumonia Recurrent right pleural effusion UTI (urinary tract infection) Elevated d-dimer Hypothyroidism (acquired) Disposition: ADMITTED INPATIENT Admit to: Tele Condition: Serious e-Prescriptions No Active Prescriptions or Reported Meds Critical Care Note Critical Care Time?: No Stability Stability form required: Yes Heart Score Heart Score: Heart Score Response (Comments) Value History Moderate Suspicious 1 EKG Repolarization Disturb 1 Age >65 2 Risk Factors >3 or Hx ASHD 2 Troponin Normal limit 0 Total 6 I personally scribed for TRACY MCMAHAN MD ([email or web address]) on 03/20/25 at 16:35. Electronically submitted by Asael Finney ([email or web address]). I personally scribed for TRACY MCMAHAN MD ([email or web address]) on 03/20/25 at 17:12. Electronically submitted by Asael Finney ([email or web address]). TRACY MCMAHAN MD Mar 20, 2025 16:35
--- NOTE | 2025-03-20 17:01 | DVH ---
CHEST RADIOGRAPH Indication: Chest pain Technique: Single frontal view of the chest was obtained COMPARISON: CT CT ANGIO CHEST CONTRAST on DOS: 02/12/25, US CHEST ULTRASOUND on DOS: 02/12/25, XY CHEST X RAY 1 VIEW on DOS: 02/11/25 FINDINGS: Lines and Tubes: None Lungs: Prominent infiltrate left lung, stable Probable right pleural effusion, stable No pneumothorax. Cardiomediastinal contours: Stable cardiomegaly Bones: Unremarkable IMPRESSION: 1. No interval change when compared to the prior study of 02/11/2025
[2025-03-20] MEDS: ONDANSETRON HCL 4 MG/2 ML VIAL IV ONE (17:40)
[2025-03-20] MEDS: SODIUM CHLORIDE 0.9% 1,000 ML IV ONE (17:40)
[2025-03-20] MEDS: MORPHINE SULFATE 4 MG/ML SYR/VIAL IV ONE (17:41)
[2025-03-20 18:14] LABS: Alanine Aminotransferase 19 U/L (7-40); Alkaline Phosphatase 114 U/L (46-116); Calcium 9.6 mg/dL (8.7-10.4); Carbon Dioxide 27 mmol/L (20-31); Chloride 99 mmol/L (98-107); Potassium 4.2 mmol/L (3.5-5.1)
[2025-03-20 18:15] LABS: Albumin 4.2 g/dL (3.2-4.8); Anion Gap 10 (5-15); BUN/Creatinine Ratio 24.0 (10.0-20.0); Bilirubin, Total 0.5 mg/dL (0.2-1.0); Magnesium 2.0 mg/dL (1.6-2.6); Total Protein 6.9 g/dL (5.7-8.2)
[2025-03-20 18:34] LABS: Hematocrit 43.7 % (36.0-46.0); Hemoglobin 14.2 g/dL (12.2-16.2); Mean Corpuscular Hemoglobin 26.5 pg (28.0-32.0); Mean Corpuscular Volume 81.7 fL (80.0-100.0); Nucleated Red Blood Cells % 0.0 %
[2025-03-20 18:40] VITALS: PULSE 54; RESP 17; O2SAT 100
[2025-03-20 18:52] LABS: Blood Urea Nitrogen 25 mg/dL (9-23); Sodium 136 mmol/L (136-145)
[2025-03-20 18:55] LABS: Glucose 427 mg/dL (74-106)
[2025-03-20 19:02] LABS: INR 0.95 (0.9-1.15); Partial Thromboplastin Time 23.7 SEC (24.5-34.5); Prothrombin Time 10.1 sec (9.3-11.8)
[2025-03-20 19:03] LABS: Urine Budding Yeast MANY /hpf (None Seen); Urine Protein, UAD Negative (Negative)
--- NOTE | 2025-03-20 19:17 | ECG ---
[facility] Test Date: 2025-03-20 Test Time: 16:25:02 Pat Name: NAIMA PRINCE Department: ED Room: 0283T Gender: F [employer]or Services Team Leader: juice : 1955 Requested By: TRACY MCMAHAN Order Number: [id number] Reading MD: Yogi Zimmerman Measurements Intervals [place] Rate: 74 P: 30 AR: 165 QRS: -42 QRSD: 135 T: 101 QT: 428 QTc: 475 Interpretive Statements Sinus rhythm Early repolarization in the inferior leads. Electronically Signed On 03-25-2025 22:40:36 PDT by Yogi Zimmerman Please click the below link to view image of tracing.
[2025-03-20] MEDS: InsuLIN REG 1unit/0.01ml Soln (100units/ml) IV ONE ×2 (19:24→21:04)
[2025-03-20 20:16] VITALS: PULSE 68; RESP 20; O2SAT 98
[2025-03-20] MEDS ORDERED: NITROGLYCERIN 0.4 MG SL TAB SL PRN (23:00)
[2025-03-20] MEDS ORDERED: DEXTROSE (50%) 50ML SYRG IV PRN (23:00)
[2025-03-20] MEDS ORDERED: ALBUTEROL SULF 2.5 MG/0.5ML(0.5%) NEB SOLN NEB PRN (23:00)
[2025-03-20] MEDS: ACCU-CHEK COMFORT CURVE STRIP VI SCH (23:22)
[2025-03-20] MEDS: InsuLIN REG 1unit/0.01ml Soln (100units/ml) SC SCH (23:26)
[2025-03-20] MEDS: cefTRIAXone 1GM/50ML D5W 50 ML IV ONE (23:26)
[2025-03-20] MEDS: LEVOTHYROXINE SODIUM 50 MCG TAB PO ONE (23:29)
[2025-03-20] MEDS: AZITHROMYCIN 500MG/ 250ML 250 ML IV ONE (23:29)
[2025-03-21] VITALS (11 sets, daily range): BP systolic 110–128; BP diastolic 54–86; PULSE 51–64; RESP 3–20; TEMP 96.4–98.8; O2SAT 96–100
[2025-03-21 00:13] LABS: Lactic Acid w/Reflex 2.8 mmol/L (0.4-2.0)
--- NOTE | 2025-03-21 01:20 | DVHHP2 ---
History of Present Illness Reason for Visit: Chest pain History of Present Illness 69-year-old female presents for evaluation of chest pain. Patient presents from Located within [facility] with complaints of a two day history of left-sided pressure-like nonradiating chest pain with associated shortness for breath. Denies nausea or vomiting. No fever or chills. No other acute complaints reported. Past Medical History Hypertension, thyroid, diabetes mellitus, CVA, asthma Past Surgical History Denies Family History Noncontributory Smoke: No ALCOHOL: none Drugs: None Lives: with Family Review of Systems Review of Systems Review of systems are currently negative otherwise addressed in HPI. Allergies: Coded Allergies: NO KNOWN ALLERGIES (Unverified , 02/11/25) Medications Current Medications Medications Dose Ordered Sig/Lindsey Route Start Time Stop Time Status Last Admin Dose Admin Furosemide 40 mg BIDD PO 03/21/25 06:00 Levothyroxine Sodium 200 mcg QAM@0600 PO 03/21/25 06:00 Amiodarone HCl 200 mg DAILY PO 03/21/25 10:00 Apixaban 5 mg BID PO 03/21/25 10:00 Aspirin 81 mg DAILY PO 03/21/25 10:00 Atorvastatin Calcium 10 mg HS PO 03/21/25 22:00 Ceftriaxone Sodium 50 ml @ 100 mls/hr DAILY@09 IV 03/21/25 09:00 Azithromycin 250 ml @ 125 mls/hr DAILY IV 03/21/25 10:00 Albuterol 2.5 mg Q6HPRN PRN NEB 03/20/25 23:00 Diagnostic Test (Pha) 1 strip Q6HR 03/21/25 00:00 03/20/25 23:22 1 STRIP Insulin Human Regular Q6HR SC 03/21/25 00:00 03/20/25 23:26 8 UNITS Dextrose 50 ml UD PRN IV 03/20/25 23:00 Ondansetron HCl 4 mg Q4HP PRN IV 03/20/25 23:00 Acetaminophen 650 mg Q6HP PRN PO 03/20/25 23:00 Nitroglycerin 0.4 mg Q5MINP PRN SL 03/20/25 23:00 Morphine Sulfate 2 mg Q30M PRN IV 03/20/25 23:00 Exam Vital Signs Vital Signs Date Time Temp Pulse Resp B/P (MAP) Pulse Ox O2 Delivery O2 Flow Rate FiO2 03/21/25 00:00 76 03/20/25 22:59 98.1 20 98/57 (71) 97 98.1 03/20/25 20:16 Nasal Cannula* 2 28 Exam Gen: 69-year-old female in mild distress Skin: Warm, dry, normal color and texture, no rash. HEENT: Normocephalic atraumatic, mucous membranes moist and pink. Neck: Cervical and supraclavicular nodes normal without enlargement, trachea is midline, thyroid gland is normal without masses. Pulmonary: Clear to auscultation and percussion bilaterally. Cardiac: Regular rate and rhythm. No murmur Abdomen: Soft, nontender, nondistended, bowel sounds present all 4 quadrants, no guarding, no rigidity, no organomegaly. Extremities: No cyanosis, clubbing, no edema Neuro: Cranial nerves II through XII grossly intact, normal affect and speech, no focal motor deficits. Labs/Xrays ORDERING PHYSICIAN: TRACY MCMAHAN MD PROCEDURE(s): CXRP - CHEST PORTABLE REASON: Chest pain ORDER NUMBER(s): [id number], ACCESSION NUMBER(s): [id number] CHEST RADIOGRAPH Indication: Chest pain Technique: Single frontal view of the chest was obtained COMPARISON: CT CT ANGIO CHEST CONTRAST on DOS: 02/12/25, US CHEST ULTRASOUND on DOS: 02/12/25, XY CHEST XRAY 1 VIEW on DOS: 02/11/25 FINDINGS: Lines and Tubes: None Lungs: Prominent infiltrate left lung, stable Probable right pleural effusion, stable No pneumothorax. Cardiomediastinal contours: Stable cardiomegaly Bones: Unremarkable IMPRESSION: 1. No interval change when compared to the prior study of 02/11/2025 P Labs Test 03/21/25 01:07 03/20/25 23:20 03/20/25 20:40 03/20/25 18:28 Range/Units POC Glucose 317 H 70-106 mg/dl Troponin I High Sensitivity 17 </=34 ng/L Urine Color Light-yellow Yellow Urine Clarity Turbid H Clear Urine pH 5.0 5.0-9.0 Urine Specific Hal[place] 1.028 1.001-1.035 Urine Protein Negative Negative Urine Ketones Trace Negative Urine Blood Negative Negative /uL Urine Nitrite Negative Negative Urine Bilirubin Negative Negative Urine Urobilinogen Normal Negative mg/dL Urine Leukocyte Esterase 3+ Negative /uL Urine RBC 69 0 - 4 /hpf Urine Microscopic WBC 205 H 0-5 /HPF Urine Squamous Epithelial Cells None seen <5 /hpf Urine Bacteria None seen None Seen /hpf Urine Mucus Few None Seen Urine Yeast (Budding) Many None Seen /hpf Urine Glucose 4+ H Normal mg/dL Test 03/20/25 17:30 Range/Units White Blood Count 9.2 4.4-10.8 10^3/uL Red Blood Count 5.35 H 4.0-5.20 10^6/uL Hemoglobin 14.2 12.2-16.2 g/dL Hematocrit 43.7 36.0-46.0 % Mean Corpuscular Volume 81.7 80.0-100.0 fL Mean Corpuscular Hemoglobin 26.5 L 28.0-32.0 pg Mean Corpuscular Hemoglobin Concent 32.5 32.0-36.0 g/dL Red Cell Distribution Width 16.7 H 11.8-14.3 % Platelet Count 285 140-450 10^3/uL Mean Platelet Volume 8.2 6.9-10.8 fL Neutrophils (%) (Auto) 76.6 37.0-80.0 % Lymphocytes (%) (Auto) 16.0 10.0-50.0 % Monocytes (%) (Auto) 5.1 0.0-12.0 % Eosinophils (%) (Auto) 1.6 0.0-7.0 % Basophils (%) (Auto) 0.7 0.0-2.0 % Neutrophils # (Auto) 7.0 1.6-8.6 10 ^3/uL Lymphocytes # (Auto) 1.5 0.4-5.4 10 ^3/uL Monocytes # (Auto) 0.5 0-1.3 10 ^3/uL Eosinophils # (Auto) 0.1 0-0.8 10 ^3/uL Basophils # (Auto) 0.1 0-0.2 10 ^3/uL Nucleated Red Blood Cells 0.0 % Prothrombin Time 10.1 9.3-11.8 sec Prothrombin Time INR 0.95 0.9-1.15 Activated Partial Thromboplast Time 23.7 L 24.5-34.5 SEC D-Dimer, Quantitative 0.59 H 0.0-0.49 mg/L FEU Sodium Level 136 136-145 mmol/L Potassium Level 4.2 3.5-5.1 mmol/L Chloride Level 99 98-107 mmol/L Carbon Dioxide Level 27 20-31 mmol/L Anion Gap 10 5-15 Blood Urea Nitrogen 25 H 9-23 mg/dL Creatinine 1.04 H 0.550-1.02 mg/dL Glomerular Filtration Rate Calc 59 >90 mL/min BUN/Creatinine Ratio 24.0 H 10.0-20.0 Serum Glucose 427 *H 74-106 mg/dL Calcium Level 9.6 8.7-10.4 mg/dL Magnesium Level 2.0 1.6-2.6 mg/dL Total Bilirubin 0.5 0.2-1.0 mg/dL Aspartate Amino Transferase (AST) 14 13-40 U/L Alanine Aminotransferase (ALT) 19 7-40 U/L Alkaline Phosphatase 114 46-116 U/L B-Type Natriuretic Peptide 95.18 0-100 pg/mL Total Protein 6.9 5.7-8.2 g/dL Albumin 4.2 3.2-4.8 g/dL Thyroid Stimulating Hormone (TSH) 10.14 H 0.55-4.78 uIU/mL SEPSIS Sepsis Screen Date sepsis recognized/suspect: Mar 20, 2025 Time Sepsis recognized/suspect: 2019 Recent Procedure: No On Antibiotic Therapy: No Respiratory Rate >20: No Heart Rate >90: No Temp<36 C (96.8 F) or >38.3 C: No SBP <90 or MAP <65 mmHG: Yes New Acute Mental Status Change: No Is the patient on CPAP, BIPAP,: No Physician Orders * Wound Consult (03/20/25 ) Urine Bacterial Culture (03/20/25 23:00) Furosemide Tablet (Lasix Tablet) (03/21/25 06:00) Levothyroxine Tablet (Synthroid Tablet) (03/21/25 06:00) Amiodarone Tablet (Cordarone Tablet) (03/21/25 10:00) Apixaban (Eliquis) (03/21/25 10:00) Aspirin Tablet (03/21/25 10:00) Atorvastatin (Lipitor) (03/21/25 22:00) Ceftriaxone 1gm/50ml D5w (Rocephin) (03/21/25 09:00) Azithromycin 500mg/ 250ml (Zithromax 50 (03/21/25 10:00) Albuterol Medneb (Ventolin Medneb) (03/20/25 23:00) Glucose Blood (Accu-Chek Comfort Curve T (03/21/25 00:00) Insulin R (Human) (Insulin R) (03/21/25 00:00) Dextrose 50% Syringe (03/20/25 23:00) Admit (03/20/25 23:00) Ondansetron Hcl (Zofran) (03/20/25 23:00) Complete Blood Count (03/21/25 04:00) Cardiac Diet-2gna,Lofat,Lochol (03/21/25 Breakfast) Condition: Fair (03/20/25 23:00) Acetaminophen Tablet (Tylenol Tablet) (03/20/25 23:00) Bedrest With Bathroom Privileg (03/20/25 23:00) Nitroglycerin Sublingual (Ntrostat Subli (03/20/25 23:00) Morphine Sulfate Injection (03/20/25 23:00) Stat Ekg For Chest Pain (03/20/25 23:00) Notify Md Of Changes From Base (03/20/25 23:00) Tugboat Engineer For 24 Hours (03/20/25 23:00) Emergency Dysrhythmia Protocol (03/20/25 23:00) Rhythm Strips Once Every Shift (03/20/25 23:00) Oxygen By Nasal Cannula (03/20/25 23:00) Basic Metabolic Panel (03/21/25 04:00) Vital Signs Date Time Temp Pulse Resp B/P (MAP) Pulse Ox O2 Delivery O2 Flow Rate FiO2 03/21/25 00:00 76 03/20/25 22:59 98.1 50 20 98/57 (71) 97 98.1 03/20/25 20:16 68 20 98 Nasal Cannula* 2 28 03/20/25 20:16 98.1 62 20 92/47 (62) 98 98.1 03/20/25 20:00 61 03/20/25 18:40 54 17 100 Nasal Cannula* 2 28 03/20/25 18:11 65 17 105/52 03/20/25 18:00 72 17 105/52 (69) 98 03/20/25 17:41 72 16 120/62 Laboratory Tests Test 03/20/25 17:30 03/20/25 23:22 03/21/25 01:07 White Blood Count 9.2 10^3/uL (4.4-10.8) Lactic Acid Level 2.8 mmol/L (0.4-2.0) *H Pending Medications Medications Dose Ordered Sig/Lindsey Route Start Time Stop Time Status Last Admin Dose Admin Aspirin 162 mg ONCE ONCE PO 03/20/25 16:30 03/20/25 16:31 DC 03/20/25 17:40 162 MG Azithromycin 250 ml @ 125 mls/hr ONCE ONCE IV 03/20/25 23:00 03/21/25 00:59 DC 03/20/25 23:29 125 MLS/HR Ceftriaxone Sodium 50 ml @ 100 mls/hr ONCE ONCE IV 03/20/25 23:00 03/20/25 23:29 DC 03/20/25 23:26 100 MLS/HR Diagnostic Test (Pha) 1 strip Q6HR 03/21/25 00:00 03/20/25 23:22 1 STRIP Insulin Human Regular Q6HR SC 03/21/25 00:00 03/20/25 23:26 8 UNITS Insulin Human Regular 10 units ONCE ONCE IV 03/20/25 19:15 03/20/25 19:16 DC 03/20/25 19:24 10 UNITS Insulin Human Regular 10 units ONCE ONCE IV 03/20/25 21:00 03/20/25 21:01 DC 03/20/25 21:04 10 UNITS Levothyroxine Sodium 50 mcg ONCE ONCE PO 03/20/25 23:00 03/20/25 23:20 DC 03/20/25 23:29 50 MCG Morphine Sulfate 3 mg ONCE ONCE IV 03/20/25 16:30 03/20/25 16:31 DC 03/20/25 17:41 3 MG Ondansetron HCl 4 mg ONCE ONCE IV 03/20/25 16:30 03/20/25 16:31 DC 03/20/25 17:40 4 MG Sodium Chloride 1,000 ml @ 150 mls/hr Q6H40M ONCE IV 03/20/25 16:30 03/20/25 23:09 DC 03/20/25 17:40 150 MLS/HR Assessment/Plan Assessment/Plan Assessment Chest pain rule out ACS ? Pneumonia Hypothyroid Urinary tract infection Uncontrolled diabetes mellitus Acute kidney injury Hypotension Plan Admit the patient to telemetry to the hospitalist Rocephin/azithromycin Resume home medications Hold antihypertensives Continue treatment per orders. Plan discussed with: Patient My Orders Orders - JADEANGELLASAMIRA AGACNP Procedure Category Date Status Time Urine Bacterial DESIREE 03/20/25 Logged Culture 23:00 Furosemide Tablet PHA 03/21/25 In Process (Lasix Tablet) 06:00 Levothyroxine Tablet PHA 03/21/25 In Process (Synthroid Tablet) 06:00 Amiodarone Tablet PHA 03/21/25 In Process (Cordarone Tablet) 10:00 Apixaban (Eliquis) PHA 03/21/25 In Process 10:00 Aspirin Tablet PHA 03/21/25 In Process 10:00 Atorvastatin (Lipitor) PHA 03/21/25 In Process 22:00 Ceftriaxone 1gm/50ml PHA 03/21/25 In Process D5w (Rocephin) 09:00 Azithromycin 500mg/ PHA 03/21/25 In Process 250ml (Zithromax 50 10:00 Albuterol Medneb PHA 03/20/25 In Process (Ventolin Medneb) 23:00 Glucose Blood PHA 03/21/25 In Process (Accu-Chek Comfort 00:00 Insulin R (Human) PHA 03/21/25 In Process (Insulin R) 00:00 Dextrose 50% Syringe PHA 03/20/25 In Process 23:00 Admit ADMIT 03/20/25 Transmitted 23:00 Ondansetron Hcl PHA 03/20/25 In Process (Zofran) 23:00 Complete Blood Count LAB 03/21/25 Logged 04:00 Cardiac DIET 03/21/25 Transmitted Diet-2gna,Lofat,Lochol Breakfast Condition: Fair JASON 03/20/25 In Process 23:00 Acetaminophen Tablet PHA 03/20/25 In Process (Tylenol Tablet) 23:00 Bedrest With Bathroom JASON 03/20/25 In Process Privileg 23:00 Nitroglycerin PHA 03/20/25 In Process Sublingual (Ntrostat 23:00 Morphine Sulfate PHA 03/20/25 In Process Injection 23:00 Stat Ekg For Chest JASON 03/20/25 In Process Pain 23:00 Notify Of Changes JASON 03/20/25 In Process From Base 23:00 Tugboat Engineer For JASON 03/20/25 In Process 24 Hours 23:00 Emergency Dysrhythmia JASON 03/20/25 In Process Protocol 23:00 Rhythm Strips Once JASON 03/20/25 In Process Every Shift 23:00 Oxygen By Nasal RT 03/20/25 Transmitted Cannula 23:00 Basic Metabolic Panel LAB 03/21/25 Logged 04:00 Date of Service: Mar 20, 2025 Billing Provider: ANGELLA JADE Common Visit Codes: [id number] INP/OBS CARE (HIGH) ANGELLA JADE Mar 21, 2025 01:20
[2025-03-21] MEDS: MORPHINE SULFATE INJ 2 MG/ml SYRG IV PRN (02:08)
[2025-03-21] MEDS: ONDANSETRON HCL 4 MG/2 ML VIAL IV PRN (02:10)
[2025-03-21 06:04] LABS: Hematocrit 36.3 % (36.0-46.0); Hemoglobin 12.0 g/dL (12.2-16.2); Mean Corpuscular Hemoglobin 26.9 pg (28.0-32.0); Mean Corpuscular Volume 81.7 fL (80.0-100.0); Nucleated Red Blood Cells % 0.1 %
[2025-03-21] MEDS: LEVOTHYROXINE SODIUM 100 MCG TAB PO SCH (06:05)
[2025-03-21] MEDS: FUROSEMIDE 40 MG TAB PO SCH (06:05)
[2025-03-21 06:10] LABS: Anion Gap 8 (5-15); Carbon Dioxide 28 mmol/L (20-31); Chloride 104 mmol/L (98-107); Potassium 3.7 mmol/L (3.5-5.1); Sodium 140 mmol/L (136-145)
[2025-03-21 06:16] LABS: BUN/Creatinine Ratio 20.2 (10.0-20.0); Blood Urea Nitrogen 19 mg/dL (9-23)
[2025-03-21 06:21] LABS: Calcium 8.6 mg/dL (8.7-10.4); Glucose 256 mg/dL (74-106)
[2025-03-21] MEDS: cefTRIAXone 1GM/50ML D5W 50 ML IV SCH (09:23)
[2025-03-21] MEDS: AMIODARONE HCL 200 MG TAB PO SCH (09:41)
[2025-03-21] MEDS: APIXABAN 5 MG TAB PO SCH (09:41)
--- NOTE | 2025-03-21 09:44 | DVH ---
Bilateral Chest Sonogram Date: 03/21/2025 08:45 AM Clinical history: eval pleural effusion Findings: Limited sonographic evaluation of the right and left chest was performed to localize and steve fluid f or thoracentesis. No bilateral pleural effusions. IMPRESSION: No bilateral pleural effusions. END IMPRESSION:
[2025-03-21] MEDS: AZITHROMYCIN 500MG/ 250ML 250 ML IV SCH (11:11)
--- NOTE | 2025-03-21 16:39 | DVHPNRES ---
Progress Note Date Seen: Mar 21, 2025 Medical Necessity Reason Pt with a Central, PICC or Fol: Yes The following are medically ne: Kong Catheter Reason for kong catheter: Total Immobilization Subjective Review of Systems The patient is a 69-year-old female who presented to ER with the chief complaint of chest pain. Patient states that she has had the pain for 3 days, it is more on the left side and is radiating to the left arm. It is associated with shortness of breath. The patient denies fever or chills. Patient also complains of itching all over her body. Patient also mentions that she has pain in the lower abdominal and pelvic area. On being asked, she also says she has pain on passing urine. She denies any nausea or vomiting. She is currently on 3 l of oxygen and is breathing comfortably. She resides at [facility] since 30 years. 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 Allergies: unknown Patient seen and examined at bedside. Patient is AOX1 and is in distress Eyes: No Pain, reduced Vision, No Conjunctivae inflammation, No Eyelid inflammation, No Other, No Redness ENT: No Ear pain, No Ear discharge, No Nose pain, No Nose discharge, No Nose congestion, No Mouth pain, No Mouth swelling, No Throat pain, No Throat swelling, No Other Cardiovascular: Chest Pain, No Palpitations, No Orthopnea, No Paroxysmal nocturnal Dyspnea, No Edema, No Lt Headedness, No Other Respiratory: No Cough, No Dry, Shortness of breath, No SOB with exertion, No Wheezing, No Hemoptysis, No Pleuritic Pain, No Sputum, No Other Gastrointestinal: No Nausea, No Vomiting, No Abdominal Pain, No Diarrhea, No Constipation, No Melena, No Hematochezia, No Other Genitourinary: Dysuria, No Frequency, No Incontinence, No Hematuria, No Retention, No Other General Appearance: right sided hemiparesis Head Exam: Normal inspection Neck Exam: Normal inspection. Non-tender. Normal alignment Pulmonary/Respiratory: Chest tender, reduced breath sounds, no crackles, no wheezing. Cardiovascular/Chest: Regular rate and rhythm. No murmurs. No JVD. Peripheral Pulses: 2+ Radial (R). 2+ Radial (L). 2+ Pedal (R). 2+ Pedal (L) Abdominal Exam: obese abdomen, Normal bowel sounds. Soft, no visible veins, t enderness in lower abdomen, No hepatospenomegaly. No masses, wound scars on abdomen, redness and rash in skin fold in inguinal area Ankle Exam: Negative ankle edema Lower extremities: Negative lower extremity edema Neuro/Mental Status: A&O x1, non Coherent, weakness of right upper and lower extremity Skin Exam: Normal inspection. Normal color. Warm. Dry Objective vital signs Vital Sign Date Time Temp Pulse Resp B/P (MAP) Pulse Ox O2 Delivery O2 Flow Rate FiO2 03/21/25 12:32 97.8 58 16 125/54 (77) 97 97.8 03/21/25 10:05 Nasal Cannula* 3 32 Total Intake and Output 03/20/25 03/20/25 03/21/25 15:00 23:00 07:00 Intake Total 150 ml Balance 150 ml medications Current Medications Medications Dose Ordered Sig/Lindsey Route Start Time Stop Time Status Last Admin Dose Admin Furosemide 40 mg BIDD PO 03/21/25 06:00 03/21/25 06:05 40 MG Levothyroxine Sodium 200 mcg QAM@0600 PO 03/21/25 06:00 03/21/25 06:05 200 MCG Amiodarone HCl 200 mg DAILY PO 03/21/25 10:00 Hold Apixaban 5 mg BID PO 03/21/25 10:00 03/21/25 09:41 5 MG Aspirin 81 mg DAILY PO 03/21/25 10:00 03/21/25 09:41 81 MG Atorvastatin Calcium 10 mg HS PO 03/21/25 22:00 Ceftriaxone Sodium 50 ml @ 100 mls/hr DAILY@09 IV 03/21/25 09:00 03/21/25 09:23 100 MLS/HR Azithromycin 250 ml @ 125 mls/hr DAILY IV 03/21/25 10:00 03/21/25 11:11 125 MLS/HR Albuterol 2.5 mg Q6HPRN PRN NEB 03/20/25 23:00 Diagnostic Test (Pha) 1 strip Q6HR 03/21/25 00:00 03/21/25 12:02 1 STRIP Insulin Human Regular Q6HR SC 03/21/25 00:00 03/21/25 12:02 10 UNITS Dextrose 50 ml UD PRN IV 03/20/25 23:00 Ondansetron HCl 4 mg Q4HP PRN IV 03/20/25 23:00 03/21/25 02:10 4 MG Acetaminophen 650 mg Q6HP PRN PO 03/20/25 23:00 Nitroglycerin 0.4 mg Q5MINP PRN SL 03/20/25 23:00 Morphine Sulfate 2 mg Q30M PRN IV 03/20/25 23:00 03/21/25 02:08 2 MG laboratory and microbiology Laboratory Tests 03/21/25 05:00 Test 03/21/25 05:00 Range/Units Serum Glucose 256 H 74-106 mg/dL Labs and/or images reviewed: Labs reviewed by me, Image(s) reviewed by me Problem List/Assessment/Plan Problem List/Assessment/Plan #chest pain, rule out ACS -EKG-LBBB -echo normal # community acquired pna, gram + vs -ve -azithromycin iv # acute complicated UTI ceftriaxone iv #sepsis likely d/t above #MARLON hemodynamically mediated/VMN -lasix 40 mg po bid #CHF to be ruled out -echo done-showed no pleural effusion #uncontrolled diabetes mellitus -moderate sliding scale #hypothyroidism -levothyroxine 200mcg PUD prophylaxis: not given DVT prophylaxis: eliquis 5mg bd Goals of care: Full code, discussed for > 16 minutes on 03/21/25 Plan discussed with patient's son Plan discussed with Dr Pitts Plan discussed with: Patient Date of Service: Mar 21, 2025 Billing Provider: NEO PITTS MD Common Visit Codes: [id number] INP/OBS CARE(HIGH) Secondary Visit Codes: [id number] CARE PLAN 30 MINUTES PING SANCHEZ RESIDENT Mar 21, 2025 16:39 LAURY JIMNÉEZ RESIDENT Mar 22, 2025 05:48 NEO PITTS MD Mar 23, 2025 21:25
[2025-03-21] MEDS ORDERED: InsuLIN REG 1unit/0.01ml Soln (100units/ml) SC SCH (16:45)
[2025-03-21] MEDS ORDERED: DEXTROSE (50%) 50ML SYRG IV PRN (17:45)
[2025-03-21] MEDS: InsuLIN REG 1unit/0.01ml Soln (100units/ml) SC SCH (17:45)
[2025-03-21] MEDS: ACCU-CHEK COMFORT CURVE STRIP VI SCH (20:28)
[2025-03-21] MEDS: ATORVASTATIN 20 MG TAB PO SCH (22:04)
[2025-03-21] MEDS: INSULIN LANTUS (GLARGINE) 1 /0.01ml (100units/ml) SC SCH (22:06)
[2025-03-22] VITALS (10 sets, daily range): BP systolic 119–154; BP diastolic 50–83; PULSE 50–74; RESP 16–20; TEMP 97.9–98.7; O2SAT 94–98
[2025-03-22 08:06] LABS: Hematocrit 36.4 % (36.0-46.0); Hemoglobin 12.0 g/dL (12.2-16.2); Mean Corpuscular Hemoglobin 27.2 pg (28.0-32.0); Mean Corpuscular Volume 82.6 fL (80.0-100.0); Nucleated Red Blood Cells % 0.1 %
[2025-03-22 08:11] LABS: Chloride 103 mmol/L (98-107); Potassium 3.6 mmol/L (3.5-5.1); Sodium 139 mmol/L (136-145)
[2025-03-22 08:12] LABS: Anion Gap 9 (5-15); Calcium 8.9 mg/dL (8.7-10.4); Carbon Dioxide 27 mmol/L (20-31)
[2025-03-22 08:18] LABS: BUN/Creatinine Ratio 19.4 (10.0-20.0); Blood Urea Nitrogen 14 mg/dL (9-23)
[2025-03-22 08:19] LABS: Glucose 73 mg/dL (74-106)
[2025-03-22 12:03] LABS: Free T4 (Free Thyroxine) 1.25 ng/dL (0.89-1.76)
--- NOTE | 2025-03-22 15:26 | DVH ---
CHEST RADIOGRAPH Indication: pna Technique: Single frontal view of the chest was obtained COMPARISON: US CHEST ULTRASOUND on DOS: 03/21/25, XY CHEST PORTABLE on DOS: 03/20/25, CT CT ANGIO CHEST CONTRAST on DOS: 02/12/25, US CHEST ULTRASOUND on DOS: 02/12/25, XY CHEST XRAY 1 VIEW on DOS: 02/11/25 FINDINGS: Lines and Tubes: None Lungs: Persistent bandlike infiltrate within the left upper lobe superimposed on mild diffuse pulmona ry airspace disease. Stable appearing small right pleural effusion. No pneumothorax. Cardiomediastinal contours: Cardiomegaly. Bones: Unremarkable IMPRESSION: 1. Bandlike left upper lobe pulmonary infiltrate superimposed on mild diffuse pulmonary airspace dise ase. 2. Stable small right pleural effusion and cardiomegaly.
--- NOTE | 2025-03-22 16:57 | DVHPNRES ---
Progress Note Date Seen: Mar 22, 2025 Resident Creating Document: PING SANCHEZ RESIDENT Medical Necessity Reason Pt with a Central, PICC or Fol: Yes The following are medically ne: Kong Catheter Reason for okng catheter: Strict I&O, Total Immobilization Subjective Review of Systems The patient is a 69-year-old female who presented to ER with the chief complaint of chest pain. Patient states that she has had the pain for 3 days, it is more on the left side and is radiating to the left arm. It is associated with shortness of breath. The patient denies fever or chills. Patient also complains of itching all over her body. Patient also mentions that she has pain in the lower abdominal and pelvic area. On being asked, she also says she has pain on passing urine. She denies any nausea or vomiting. She is currently on 3 l of oxygen and is breathing comfortably. She resides at [facility] since 30 years. The patient still complains of lower abdominal pain and redness with a rash was noted in the groin area. Her amiodarone was held because of low heart rate. Her insulin regimen was changed from mild to moderate sliding scale after serum glucose reading of 436 and the glucose level normalized after that. Her son was informed and updated about her condition and her code status was confirmed by him. 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 Patient is AOX1 and is in distress Eyes: legally blind in left eye and can only see shadows in right eye,No Pain, No Conjunctivae inflammation, No Eyelid inflammation, No Other, No Redness ENT: No Ear pain, No Ear discharge, No Nose pain, No Nose discharge, No Nose congestion, No Mouth pain, No Mouth swelling, No Throat pain, No Throat swelling, No Other Cardiovascular: Chest Pain, No Palpitations, No Orthopnea, No Paroxysmal nocturnal Dyspnea, No Edema, No Lt Headedness, No Other Respiratory: No Cough, No Dry, Shortness of breath, No SOB with exertion, No Wheezing, No Hemoptysis, No Pleuritic Pain, No Sputum, No Other Gastrointestinal: No Nausea, No Vomiting, No Abdominal Pain, No Diarrhea, No Constipation, No Melena, No Hematochezia, No Other Genitourinary: Dysuria, No Frequency, No Incontinence, No Hematuria, No Retention, No Other Objective vital signs Vital Sign Date Time Temp Pulse Resp B/P (MAP) Pulse Ox O2 Delivery O2 Flow Rate FiO2 03/22/25 12:32 98.3 50 16 136/76 (96) 96 98.3 03/22/25 10:30 Nasal Cannula 2.0 03/22/25 10:30 28 Total Intake and Output 03/21/25 03/21/25 03/22/25 15:00 23:00 07:00 Intake Total 45 ml 880 ml Output Total 1025 ml Balance 45 ml -145 ml medications Current Medications Medications Dose Ordered Sig/Lindsey Route Start Time Stop Time Status Last Admin Dose Admin Furosemide 40 mg BIDD PO 03/21/25 06:00 03/22/25 05:54 40 MG Levothyroxine Sodium 200 mcg QAM@0600 PO 03/21/25 06:00 03/22/25 05:53 200 MCG Amiodarone HCl 200 mg DAILY PO 03/21/25 10:00 Hold Apixaban 5 mg BID PO 03/21/25 10:00 03/22/25 08:18 5 MG Aspirin 81 mg DAILY PO 03/21/25 10:00 03/22/25 08:18 81 MG Atorvastatin Calcium 10 mg HS PO 03/21/25 22:00 03/21/25 22:04 10 MG Ceftriaxone Sodium 50 ml @ 100 mls/hr DAILY@09 IV 03/21/25 09:00 03/22/25 08:18 100 MLS/HR Azithromycin 250 ml @ 125 mls/hr DAILY IV 03/21/25 10:00 03/22/25 10:30 125 MLS/HR Albuterol 2.5 mg Q6HPRN PRN NEB 03/20/25 23:00 Ondansetron HCl 4 mg Q4HP PRN IV 03/20/25 23:00 03/21/25 02:10 4 MG Acetaminophen 650 mg Q6HP PRN PO 03/20/25 23:00 Nitroglycerin 0.4 mg Q5MINP PRN SL 03/20/25 23:00 Morphine Sulfate 2 mg Q30M PRN IV 03/20/25 23:00 03/21/25 02:08 2 MG Diagnostic Test (Pha) 1 strip IQ4HR 8/14/25 17:45 03/22/25 16:00 1 STRIP Insulin Human Regular IQ4HR SC 03/21/25 17:45 03/22/25 12:24 9 UNITS Dextrose 50 ml UD PRN IV 03/21/25 17:45 Insulin Glargine 10 units HS SC 03/21/25 22:00 03/21/25 22:06 10 UNITS Examination General Appearance: right sided hemiparesis, bruise on left forearm Head Exam: blind in left eye Neck Exam: Normal inspection. Non-tender. Normal alignment Pulmonary/Respiratory: Chest tender, reduced breath sounds, no crackles, no wheezing. Cardiovascular/Chest: Regular rate and rhythm. Bradycardia. No murmurs. No JVD. Peripheral Pulses: 2+ Radial (R). 2+ Radial (L). 2+ Pedal (R). 2+ Pedal (L) Abdominal Exam: obese abdomen, Normal bowel sounds. Soft, no visible veins, t enderness in lower abdomen, No hepatosplenomegaly. No masses, wound scars on abdomen, redness and rash in skin fold in inguinal area. Kong's in place Ankle Exam: Negative ankle edema Lower extremities: Negative lower extremity edema Neuro/Mental Status: A&O x1, non Coherent, weakness of right upper and lower extremity Skin Exam: Normal inspection. Normal color. Warm. Dry laboratory and microbiology Laboratory Tests 03/22/25 06:00 Test 03/22/25 06:00 Range/Units Serum Glucose 73 L 74-106 mg/dL Microbiology Date/Time Source Procedure Growth Status 03/20/25 18:28 Voided Urine Urine Culture - Preliminary Resulted Labs and/or images reviewed: Labs reviewed by me, Image(s) reviewed by me Problem List/Assessment/Plan Problem List/Assessment/Plan #chest pain, ruled out ACS -EKG normal sinus rhythm; cardiology importance; telemetry # community acquired pneumonia; gram + vs -ve -azithromycin IV and ceftriaxone IV # acute complicated UTI ceftriaxone iv Pending urine cultures #sepsis likely d/t above #MARLON hemodynamically mediated/VMN managed with IV fluids; to avoid nephrotoxic agent # chronic HF with reduced EF LVEF severely reduced at 30-35%, global hypokinesis. Mildly dilated RV not well visualized, likely moderately reduced function Valves not well visualized, no significant disease #uncontrolled diabetes mellitus -moderate sliding scale -Lantus 10 units #hypothyroidism -levothyroxine 200mcg # atrial fibrillation with secondary hypercoagulable status Holding amiodarone due to bradycardia Continue apixaban PUD prophylaxis: not given DVT prophylaxis: On apixaban Goals of care discussed with the patient's son for 20 minutes: Full code Plan discussed with patient's son Plan discussed with Dr Angelo Plan discussed with: Son, Other (RN) Date of Service: Mar 22, 2025 Billing Provider: ABBY ANGELO MD Common Visit Codes: [id number] INP/OBS CARE(HIGH) Secondary Visit Codes: [id number] CARE PLAN 30 MINUTES (20 minutes) PING SANCHEZ RESIDENT Mar 22, 2025 16:57 LAURY JIMÉNEZ RESIDENT Mar 22, 2025 20:19 ABBY ANGELO MD Mar 25, 2025 09:09
[2025-03-22] MEDS: ACETAMINOPHEN 325 MG TAB PO PRN (22:19)
[2025-03-23] VITALS (10 sets, daily range): BP systolic 113–147; BP diastolic 59–80; PULSE 51–81; RESP 15–18; TEMP 97–98.4; O2SAT 97–98
[2025-03-23 08:00] LABS: Hematocrit 37.1 % (36.0-46.0); Hemoglobin 12.2 g/dL (12.2-16.2); Mean Corpuscular Hemoglobin 26.6 pg (28.0-32.0); Mean Corpuscular Volume 81.0 fL (80.0-100.0); Nucleated Red Blood Cells % 0.1 %
[2025-03-23 08:11] LABS: Calcium 9.1 mg/dL (8.7-10.4); Chloride 103 mmol/L (98-107); Potassium 3.7 mmol/L (3.5-5.1); Sodium 142 mmol/L (136-145)
[2025-03-23 08:12] LABS: Anion Gap 8 (5-15)
[2025-03-23 08:17] LABS: Glucose 80 mg/dL (74-106)
[2025-03-23 08:18] LABS: BUN/Creatinine Ratio 26.7 (10.0-20.0); Blood Urea Nitrogen 20 mg/dL (9-23); Carbon Dioxide 31 mmol/L (20-31)
[2025-03-23 08:59] LABS: COVID19 ANTIGEN SOFIA FIA NEGATIVE (NEGATIVE)
[2025-03-23] MEDS ORDERED: NYSTATIN TOPICAL POWDER 15GM TOP ONE (17:15)
--- NOTE | 2025-03-23 17:29 | DVHPNRES ---
Progress Note Date Seen: Mar 23, 2025 Resident Creating Document: MEE MORENO RESIDENT Medical Necessity Reason Pt with a Central, PICC or Fol: Yes The following are medically ne: Kong Catheter Reason for kong catheter: Total Immobilization Subjective Review of Systems The patient is a 69-year-old female with prior medical history of CHF, hemiparesis after a stroke, AFib, hypertension, who presented to ER from [facility] with the chief complaint of chest pain. Patient states that she has had the pain for 3 days, it is more on the left side and is radiating to the left arm. It is associated with shortness of breath. The patient denies fever or chills. evaluation dizzy, patient was found to be in moderate distress. 12 lead EKG in the ED shows sinus rhythm with possible left bundle-branch block. Initial labs though CBC within normal range and CMP significant serum glucose 427, lactic acid 2.8. Troponins were negative and BNP 95. Chest x-ray shows infiltrate in the left lung probable right pleural effusion both stable from previous studies. She was admitted for further workup and monitoring. 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 Patient is AOX2, currently states she feels better, denies chest pain and shortness of breath. States she is breathing adequately on 2 L of oxygen. She has been slightly bradycardic since yesterday, Otherwise vitals are stable. Follow up labs are within normal range, POC glucose today at 125. Preliminary urine culture growing >100.000 CFU/mL Gram-negative rods. Nystatin powder has been added to address current rashes in inguinal folds. We will continue to monitor. Objective vital signs Vital Sign Date Time Temp Pulse Resp B/P (MAP) Pulse Ox O2 Delivery O2 Flow Rate FiO2 03/23/25 17:23 115/61 03/23/25 16:58 98.4 60 18 98 98.4 03/23/25 10:00 Nasal Cannula 2.0 03/23/25 10:00 28 Total Intake and Output 03/22/25 03/22/25 03/23/25 15:00 23:00 07:00 Intake Total 50 ml 845 ml 805 ml Output Total 950 ml 1350 ml Balance 50 ml -105 ml -545 ml medications Current Medications Medications Dose Ordered Sig/Lindsey Route Start Time Stop Time Status Last Admin Dose Admin Furosemide 40 mg BIDD PO 03/21/25 06:00 03/23/25 17:23 40 MG Levothyroxine Sodium 200 mcg QAM@0600 PO 03/21/25 06:00 03/23/25 05:08 200 MCG Amiodarone HCl 200 mg DAILY PO 03/21/25 10:00 Hold Apixaban 5 mg BID PO 03/21/25 10:00 03/23/25 10:16 5 MG Aspirin 81 mg DAILY PO 03/21/25 10:00 03/23/25 10:16 81 MG Atorvastatin Calcium 10 mg HS PO 03/21/25 22:00 03/22/25 22:18 10 MG Ceftriaxone Sodium 50 ml @ 100 mls/hr DAILY@09 IV 03/21/25 09:00 03/23/25 09:00 100 MLS/HR Azithromycin 250 ml @ 125 mls/hr DAILY IV 03/21/25 10:00 03/23/25 10:16 125 MLS/HR Albuterol 2.5 mg Q6HPRN PRN NEB 03/20/25 23:00 Ondansetron HCl 4 mg Q4HP PRN IV 03/20/25 23:00 03/21/25 02:10 4 MG Acetaminophen 650 mg Q6HP PRN PO 03/20/25 23:00 03/23/25 13:14 650 MG Nitroglycerin 0.4 mg Q5MINP PRN SL 03/20/25 23:00 Morphine Sulfate 2 mg Q30M PRN IV 03/20/25 23:00 03/21/25 02:08 2 MG Diagnostic Test (Pha) 1 strip IQ4HR 03/21/25 17:45 03/23/25 16:00 1 STRIP Insulin Human Regular IQ4HR SC 03/21/25 17:45 03/23/25 16:00 9 UNITS Dextrose 50 ml UD PRN IV 03/21/25 17:45 Insulin Glargine 10 units HS SC 03/21/25 22:00 03/22/25 22:00 10 UNITS Examination General Appearance: right sided hemiparesis, bruise on left forearm Head Exam: Normal inspection Neck Exam: Normal inspection. Non-tender. Normal alignment Pulmonary/Respiratory: Chest tender, reduced breath sounds, no crackles, no wheezing. Cardiovascular/Chest: Regular rate and rhythm. No murmurs. No JVD. Peripheral Pulses: 2+ Radial (R). 2+ Radial (L). 2+ Pedal (R). 2+ Pedal (L) Abdominal Exam: obese abdomen, Normal bowel sounds. Soft, no visible veins, tenderness in lower abdomen, No hepatospenomegaly. No masses, wound scars on abdomen, redness and rash in skin fold in inguinal area : Presence of kong draining clear urine Ankle Exam: Negative ankle edema Lower extremities: Negative lower extremity edema Neuro/Mental Status: A&O x1, non Coherent, weakness of right upper and lower extremity Skin Exam: Normal color. Warm. Dry, redness and rash in skin fold in inguinal area laboratory and microbiology Laboratory Tests 03/23/25 06:12 Test 03/23/25 06:12 Range/Units Serum Glucose 80 74-106 mg/dL Microbiology Date/Time Source Procedure Growth Status 03/20/25 18:28 Voided Urine Urine Culture - Preliminary Resulted Problem List/Assessment/Plan Problem List/Assessment/Plan Assessment and plan: Sepsis likely due to pneumonia Community acquired pna, gram + / -ve -Azithromycin IV Acute complicated UTI -Ceftriaxone 1g IV daily Chest pain, ruled out ACS, likely due to PNA -ekg normal sinus rhythm MARLON hemodynamically mediated/VMN managed with IV fluids Chronic HF with reduced EF, not exacerbated Echo:LVEF severely reduced at 30-35%, global hypokinesis. Mildly dilated, RV not well visualized, likely moderately reduced function, Valves not well visualized, no significant disease Diabetes mellitus with hyperglycemia -Moderate sliding scale -Lantus 10 units -Accu-cheks Hypothyroidism -Levothyroxine 200mcg qAM Possible alejandrina rash -Nystatin powder Afib -Amiodarone (currently on hold due to bradycardia) -Apixaban 5 mg PO BID Morbid Obesity, BMI 39.6 kg/m2 DVT prophylaxis: Not indicted due to patient being anticoagulated GI prophylaxis: not indicated Case discussed with Goals of care discussed the patient's nurse. Attempts to contact her son were unsuccessful. Code status has previously been confirmed with him FULL CODE. Plan discussed with: Other (RN) My Orders My Orders Orders - MEE MORENO Procedure Category Date Status Time Nystatin Powder PHA 03/23/25 Logged (Mycostatin Powder) 17:15 Date of Service: Mar 23, 2025 Billing Provider: SARAH RODRIGUEZ MD Common Visit Codes: [id number] INP/OBS CARE(HIGH) [facility] RESIDENT Mar 23, 2025 17:29 SARAH RODRIGUEZ MD Mar 27, 2025 22:00
[2025-03-24] VITALS (10 sets, daily range): BP systolic 113–139; BP diastolic 58–77; PULSE 53–95; RESP 16–20; TEMP 97–98.8; O2SAT 96–98
[2025-03-24] MEDS ORDERED: ASPI-325 PO (14:18)
[2025-03-24] MEDS ORDERED: INSREGI SC (14:18)
[2025-03-24] MEDS ORDERED: ATOR20TA50 PO (14:18)
[2025-03-24] MEDS ORDERED: FURO40TA4 PO (14:18)
[2025-03-24] MEDS ORDERED: INSLANTI SC (14:18)
[2025-03-24] MEDS ORDERED: APIX5TAB PO (14:18)
[2025-03-24] MEDS ORDERED: AMIO200T13 PO (14:18)
[2025-03-24] MEDS ORDERED: LEVO100T8 PO (14:18)
[2025-03-24] MEDS ORDERED: CEPH250C PO (14:27)
--- NOTE | 2025-03-24 16:11 | DVHDSRES ---
Discharge Summary Date of Admission Resident Creating Document: PING SANCHEZ RESIDENT Mar 20, 2025 at 23:00 Date of Discharge: Mar 24, 2025 Admitting Diagnosis chest pain Labs/Diagnostic Data: Laboratory Results Test 03/24/25 11:47 03/23/25 07:30 03/23/25 06:12 03/22/25 06:00 POC Glucose 165 mg/dl (70-106) Influenza Type A Antigen Negative (Negative) Influenza Type B Antigen Negative (Negative) SARS-CoV-2 Antigen (Rapid) Negative (NEGATIVE) White Blood Count 6.7 10^3/uL (4.4-10.8) Red Blood Count 4.59 10^6/uL (4.0-5.20) Hemoglobin 12.2 g/dL (12.2-16.2) Hematocrit 37.1 % (36.0-46.0) Mean Corpuscular Volume 81.0 fL (80.0-100.0) Mean Corpuscular Hemoglobin 26.6 pg (28.0-32.0) Mean Corpuscular Hemoglobin Concent 32.9 g/dL (32.0-36.0) Red Cell Distribution Width 16.3 % (11.8-14.3) Platelet Count 271 10^3/uL (140-450) Mean Platelet Volume 8.2 fL (6.9-10.8) Neutrophils (%) (Auto) 60.5 % (37.0-80.0) Lymphocytes (%) (Auto) 29.5 % (10.0-50.0) Monocytes (%) (Auto) 6.0 % (0.0-12.0) Eosinophils (%) (Auto) 3.1 % (0.0-7.0) Basophils (%) (Auto) 0.9 % (0.0-2.0) Neutrophils # (Auto) 4.1 10 ^3/uL (1.6-8.6) Lymphocytes # (Auto) 2.0 10 ^3/uL (0.4-5.4) Monocytes # (Auto) 0.4 10 ^3/uL (0-1.3) Eosinophils # (Auto) 0.2 10 ^3/uL (0-0.8) Basophils # (Auto) 0.1 10 ^3/uL (0-0.2) Nucleated Red Blood Cells 0.1 % Sodium Level 142 mmol/L (136-145) Potassium Level 3.7 mmol/L (3.5-5.1) Chloride Level 103 mmol/L (98-107) Carbon Dioxide Level 31 mmol/L (20-31) Anion Gap 8 (5-15) Blood Urea Nitrogen 20 mg/dL (9-23) Creatinine 0.75 mg/dL (0.550-1.02) Glomerular Filtration Rate Calc 87 mL/min (>90) BUN/Creatinine Ratio 26.7 (10.0-20.0) Serum Glucose 80 mg/dL (74-106) Calcium Level 9.1 mg/dL (8.7-10.4) Free Thyroxine (T4) Calculated 1.25 ng/dL (0.89-1.76) Total Triiodothyronine (TT3) 0.62 ng/mL (0.60-1.81) Test 03/21/25 01:07 03/20/25 20:40 03/20/25 18:28 03/20/25 17:30 Lactic Acid Level 2.5 mmol/L (0.4-2.0) Troponin I High Sensitivity 17 ng/L (</=34) Urine Color Light-yellow (Yellow) Urine Clarity Turbid (Clear) Urine pH 5.0 (5.0-9.0) Urine Specific Oxly 1.028 (1.001-1.035) Urine Protein Negative (Negative) Urine Ketones Trace (Negative) Urine Blood Negative /uL (Negative) Urine Nitrite Negative (Negative) Urine Bilirubin Negative (Negative) Urine Urobilinogen Normal mg/dL (Negative) Urine Leukocyte Esterase 3+ /uL (Negative) Urine RBC 69 /hpf (0 - 4) Urine Microscopic WBC 205 /HPF (0-5) Urine Squamous Epithelial Cells None seen /hpf (<5) Urine Bacteria None seen /hpf (None Seen) Urine Mucus Few (None Seen) Urine Yeast (Budding) Many /hpf (None Seen) Urine Glucose 4+ mg/dL (Normal) Prothrombin Time 10.1 sec (9.3-11.8) Prothrombin Time INR 0.95 (0.9-1.15) Activated Partial Thromboplast Time 23.7 SEC (24.5-34.5) D-Dimer, Quantitative 0.59 mg/L FEU (0.0-0.49) Magnesium Level 2.0 mg/dL (1.6-2.6) Total Bilirubin 0.5 mg/dL (0.2-1.0) Aspartate Amino Transferase (AST) 14 U/L (13-40) Alanine Aminotransferase (ALT) 19 U/L (7-40) Alkaline Phosphatase 114 U/L (46-116) B-Type Natriuretic Peptide 95.18 pg/mL (0-100) Total Protein 6.9 g/dL (5.7-8.2) Albumin 4.2 g/dL (3.2-4.8) Thyroid Stimulating Hormone (TSH) 10.14 uIU/mL (0.55-4.78) Other Laboratory Tests 03/23/25 06:12 Brief Hx & Hospital Course: The patient is a 69-year-old female with prior medical history of CHF, hemiparesis after a stroke, AFib, hypertension, who presented to ER from [facility] with the chief complaint of chest pain. Patient stated that she has had the pain for 3 days, it was more on the left side and is radiating to the left arm. It was associated with shortness of breath. The patient denied fever or chills. On evaluation, patient was found to be in moderate distress. 12 lead EKG in the ED showed sinus rhythm with possible left bundle-branch block. Initial labs showed CBC within normal range and BMP showed significant serum glucose 427, lactic acid 2.8. Troponins were negative and BNP 95. Chest x-ray showed infiltrate in the left lung probable right pleural effusion both stable from previous studies. She was admitted for further workup and monitoring. Over the course of her hospital stay, she started feeling better with reduction in chest pain and shortness of breath. Preliminary urine culture growing >100.000 CFU/mL with Gram-negative rods, resistant to ceftriaxone so the patient was shifted to meropenam. She was discharged to [facility] after dicussing with her family. 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 Non-tender. Normal alignment Pulmonary/Respiratory: Chest tender, reduced breath sounds, no crackles, no wheezing. Cardiovascular/Chest: Regular rate and rhythm. No murmurs. No JVD. Peripheral Pulses: 2+ Radial (R). 2+ Radial (L). 2+ Pedal (R). 2+ Pedal (L) Abdominal Exam: obese abdomen, Normal bowel sounds. Soft, no visible veins, tenderness in lower abdomen, No hepatospenomegaly. No masses, wound scars on abdomen, redness and rash in skin fold in inguinal area : Presence of kong draining clear urine Ankle Exam: Negative ankle edema Lower extremities: Negative lower extremity edema Neuro/Mental Status: A&O x1, non Coherent, weakness of right upper and lower extremity Skin Exam: Normal color. Warm. Dry, redness and rash in skin fold in inguinal area Condition at Discharge: Stable Final Diagnosis/Problems List sepsis, likely due to pneumonia community acquired pneumonia acute complicated UTI-e coli ,enteroccus fecalis MARLON hemodynamically mediated CHF with reduced EF diabetes mellitus with hyperglycemia hypothyroidism Afib possible alejandrina rash Discharge Disposition: Care Home Facility Discharge Instruct/Medications Diet: Consistent carbohydrate, Cardiac 2g Na,low cholest Activity: No Restrictions, As Tolerated Follow Up/Referral: follow up in d/c clinic in 1-2 weeks follow up with PCP in 1-2 weeks Scheduled Amiodarone HCl (Amiodarone HCl), 200 MG PO DAILY Apixaban Base (Eliquis), 5 MG PO BID Aspirin (Aspirin Low Dose), 81 MG PO DAILY Atorvastatin Calcium (Atorvastatin Calcium), 10 MG PO HS Cephalexin (Keflex Capsule), 1 CAP PO QID Furosemide (Furosemide), 40 MG PO DAILY Insulin Glargine (Lantus), 10 UNITS SC HS Insulin Regular (Human) (Novolin R), 0 UNITS SC IQ4HR Levothyroxine Sodium (Levothyroxine Sodium), 200 MCG PO QAM@0600 Discharge Statement: "Patient was advised to return to the ER or call 911 if any headaches, dizziness, shortness of breath, chest pain, abdominal pain, bleeding, fevers, or worsening of medical condition. Patient was counseled about treatment plan, medications, possible side effects, patientverbalized understanding. All questions were answered to the best of my ability. This discharge took greater then 30 minutes in planning, reviewing documentation, counseling the patient, and discussing with other team members." ASSESSMENT ASSESSMENT Assessment sepsis, likely due to pneumonia community acquired pneumonia acute complicated UTI MARLON hemodynamically mediated diabetes mellitus with hyperglycemia hypothyroidism Afib possible alejandrina rash Sepsis likely due to pneumonia Community acquired pna, gram + / -ve -Azithromycin IV Acute complicated UTI -ertapenem 1gm iv daily Chest pain, ruled out ACS, likely due to PNA -ekg normal sinus rhythm MARLON hemodynamically mediated/VMN managed with IV fluids Chronic HF with reduced EF, not exacerbated Echo:LVEF severely reduced at 30-35%, global hypokinesis. Mildly dilated, RV not well visualized, likely moderately reduced function, Valves not well visualized, no significant disease Diabetes mellitus with hyperglycemia -Moderate sliding scale -Lantus 10 units -Accu-cheks Hypothyroidism -Levothyroxine 200mcg qAM Possible alejandrina rash -Nystatin powder Afib -Amiodarone (currently on hold due to bradycardia) -Apixaban 5 mg PO BID Morbid Obesity, BMI 39.6 kg/m2 DVT prophylaxis: Not indicted due to patient being anticoagulated GI prophylaxis: not indicated Case discussed with Goals of care discussed the patient's nurse. Attempts to contact her son were unsuccessful. Code status has previously been confirmed with him FULL CODE. Plan discussed with: Other (RN) Date of Service: Mar 24, 2025 Billing Provider: SARAH RODRIGUEZ MD Common Visit Codes: [id number]/[id number] DISCH DAY >30min PING SANCHEZ RESIDENT Mar 24, 2025 16:11 SARAH RODRIGUEZ MD Mar 27, 2025 22:03
[2025-03-24] MEDS: MEROPENEM 1GM IVPB 50 ML IV SCH (22:00)
[2025-03-25] VITALS (10 sets, daily range): BP systolic 117–159; BP diastolic 49–83; PULSE 57–85; RESP 18–20; TEMP 97.7–98.3; O2SAT 90–100
[2025-03-25] MEDS: MEROPENEM 1GM IVPB 50 ML IV SCH (05:51)
--- NOTE | 2025-03-25 10:32 | ECG ---
[facility] Test Date: 2025-03-20 Test Time: 15:18:22 Pat Name: NAIMA PRINCE Department: ED Room: [facility]3T A Gender: F Filer Helper: juice : 1955 Requested By: TRACY MCMAHAN Order Number: [id number] Reading MD: Yogi Zimmerman Measurements Intervals [place] Rate: 72 P: 23 NM: 171 QRS: -41 QRSD: 133 T: 98 QT: 432 QTc: 473 Interpretive Statements Sinus rhythm Nonspecific IVCD with LAD Left ventricular hypertrophy Anterior Q waves, possibly due to LVH Nonspecific T abnormalities, lateral leads ST elevation, consider inferior injury Baseline wander in lead(s) III,V4 Electronically Signed On 03-25-2025 22:38:44 PDT by Yogi Zimmerman Please click the below link to view image of tracing.
[2025-03-25] MEDS: ERTAPENEM SOD INJ 1 GM in SODIUM CHL 0.9% 50 ML IV ONE (12:56)
[2025-03-25 14:58] LABS: Hematocrit 40.3 % (36.0-46.0); Hemoglobin 13.1 g/dL (12.2-16.2); Mean Corpuscular Hemoglobin 26.8 pg (28.0-32.0); Mean Corpuscular Volume 82.2 fL (80.0-100.0); Nucleated Red Blood Cells % 0.1 %
[2025-03-25 15:07] LABS: Chloride 99 mmol/L (98-107); Potassium 4.1 mmol/L (3.5-5.1); Sodium 139 mmol/L (136-145)
[2025-03-25 15:08] LABS: Anion Gap 8 (5-15); Calcium 9.1 mg/dL (8.7-10.4)
[2025-03-25 15:13] LABS: BUN/Creatinine Ratio 17.0 (10.0-20.0); Blood Urea Nitrogen 19 mg/dL (9-23)
[2025-03-25 15:17] LABS: Carbon Dioxide 32 mmol/L (20-31); Glucose 328 mg/dL (74-106)
--- NOTE | 2025-03-25 16:38 | DVHPNRES ---
Progress Note Date Seen: Mar 25, 2025 Resident Creating Document: PING SANCHEZ RESIDENT Medical Necessity Reason Pt with a Central, PICC or Fol: Yes The following are medically ne: Kong Catheter Reason for kong catheter: Total Immobilization Subjective Review of Systems The patient is a 69-year-old female with prior medical history of CHF, hemiparesis after a stroke, AFib, hypertension, who presented to ER from [facility] with the chief complaint of chest pain. Patient states that she has had the pain for 3 days, it is more on the left side and is radiating to the left arm. It is associated with shortness of breath. The patient denies fever or chills. evaluation dizzy, patient was found to be in moderate distress. 12 lead EKG in the ED shows sinus rhythm with possible left bundle-branch block. Initial labs though CBC within normal range and CMP significant serum glucose 427, lactic acid 2.8. Troponins were negative and BNP 95. Chest x-ray shows infiltrate in the left lung probable right pleural effusion both stable from previous studies. She was admitted for further workup and monitoring. Past medical history: sepsis, CHF, hemiparesis after stroke, Afib, pneumonia Social & Personal history: lives at [facility] Allergies: unknown Patient seen and examined at bedside. Patient is AOX2, currently states she feels better, denies chest pain and shortness of breath. States she is breathing adequately on 2 L of oxygen. She has been slightly bradycardic since yesterday, Otherwise vitals are stable. Follow up labs are within normal range, POC glucose today at 125. Preliminary urine culture growing >100.000 CFU/mL Gram-negative rods. Nystatin powder has been added to address current rashes in inguinal folds. We will continue to monitor. Patient mentions she has some pain in the pelvic area and has rash. Urine culture grew E.coli and Enterococcus fecalis, so antibiotic was changed to ertapenem (ivanz) 1 gm daily iv via midline at the SNF. surgical services assistant was consulted for the same. General Appearance: right sided hemiparesis, bruise on left forearm Head Exam: Normal inspection Neck Exam: Normal inspection. Non-tender. Normal alignment Pulmonary/Respiratory: Chest tender, reduced breath sounds, no crackles, no wheezing. Cardiovascular/Chest: Regular rate and rhythm. No murmurs. No JVD. Peripheral Pulses: 2+ Radial (R). 2+ Radial (L). 2+ Pedal (R). 2+ Pedal (L) Abdominal Exam: obese abdomen, Normal bowel sounds. Soft, no visible veins, tenderness in lower abdomen, No hepatospenomegaly. No masses, wound scars on abdomen, redness and rash in skin fold in inguinal area : Presence of kong draining clear urine Ankle Exam: Negative ankle edema Lower extremities: Negative lower extremity edema Neuro/Mental Status: A&O x1, non Coherent, weakness of right upper and lower extremity Skin Exam: Normal color. Warm. Dry, redness and rash in skin fold in inguinal area Objective vital signs Vital Sign Date Time Temp Pulse Resp B/P (MAP) Pulse Ox O2 Delivery O2 Flow Rate FiO2 03/25/25 13:00 97.9 85 18 159/72 (101) 93 97.9 03/25/25 10:00 Nasal Cannula* 2 28 Total Intake and Output 03/24/25 03/24/25 03/25/25 15:00 23:00 07:00 Intake Total 300 ml 500 ml 1300 ml Output Total 1000 ml 1050 ml Balance 300 ml -500 ml 250 ml medications Current Medications Medications Dose Ordered Sig/Lindsey Route Start Time Stop Time Status Last Admin Dose Admin Furosemide 40 mg BIDD PO 03/21/25 06:00 03/25/25 05:44 40 MG Levothyroxine Sodium 200 mcg QAM@0600 PO 03/21/25 06:00 03/25/25 05:44 200 MCG Amiodarone HCl 200 mg DAILY PO 03/21/25 10:00 Hold Apixaban 5 mg BID PO 03/21/25 10:00 03/24/25 22:13 5 MG Aspirin 81 mg DAILY PO 03/21/25 10:00 03/24/25 10:21 81 MG Atorvastatin Calcium 10 mg HS PO 03/21/25 22:00 03/24/25 22:13 10 MG Azithromycin 250 ml @ 125 mls/hr DAILY IV 03/21/25 10:00 03/24/25 10:21 125 MLS/HR Albuterol 2.5 mg Q6HPRN PRN NEB 03/20/25 23:00 Ondansetron HCl 4 mg Q4HP PRN IV 03/20/25 23:00 03/21/25 02:10 4 MG Acetaminophen 650 mg Q6HP PRN PO 03/20/25 23:00 03/23/25 13:14 650 MG Nitroglycerin 0.4 mg Q5MINP PRN SL 03/20/25 23:00 Morphine Sulfate 2 mg Q30M PRN IV 03/20/25 23:00 03/21/25 02:08 2 MG Diagnostic Test (Pha) 1 strip IQ4HR 03/21/25 17:45 03/25/25 16:28 1 STRIP Insulin Human Regular IQ4HR SC 03/21/25 17:45 03/25/25 16:29 6 UNITS Dextrose 50 ml UD PRN IV 03/21/25 17:45 Insulin Glargine 10 units HS SC 03/21/25 22:00 03/24/25 22:37 10 UNITS Ertapenem 1 gm/ Sodium Chloride 50 ml @ 100 mls/hr DAILY IV 03/26/25 10:00 Examination General Appearance: right sided hemiparesis, bruise on left forearm Head Exam: Normal inspection Neck Exam: Normal inspection. Non-tender. Normal alignment Pulmonary/Respiratory: Chest tender, reduced breath sounds, no crackles, no wheezing. Cardiovascular/Chest: Regular rate and rhythm. No murmurs. No JVD. Peripheral Pulses: 2+ Radial (R). 2+ Radial (L). 2+ Pedal (R). 2+ Pedal (L) Abdominal Exam: obese abdomen, Normal bowel sounds. Soft, no visible veins, tenderness in lower abdomen, No hepatospenomegaly. No masses, wound scars on abdomen, redness and rash in skin fold in inguinal area : Presence of kong draining clear urine Ankle Exam: Negative ankle edema Lower extremities: Negative lower extremity edema Neuro/Mental Status: A&O x1, non Coherent, weakness of right upper and lower extremity Skin Exam: Normal color. Warm. Dry, redness and rash in skin fold in inguinal area laboratory and microbiology Laboratory Tests 03/25/25 14:47 Test 03/25/25 14:47 Range/Units Serum Glucose 328 H 74-106 mg/dL Microbiology Date/Time Source Procedure Growth Status 03/20/25 18:28 Voided Urine Urine Culture - Final Escherichia coli - ESBL Enterococcus faecalis Complete Labs and/or images reviewed: Labs reviewed by me, Image(s) reviewed by me Problem List/Assessment/Plan Problem List/Assessment/Plan #chest pain, ruled out ACS -ekg normal sinus rhythm # community acquired pna, gram + vs -ve -azithromycin iv # acute complicated UTI- urine culture growing E.coli and Enterococcus fecalis ceftriaxone iv-d/c ivanz 1gm iv daily #sepsis likely d/t above #MARLON hemodynamically mediated/VMN managed with IV fluids #CHF with reduced EF LVEF severely reduced at 30-35%, global hypokinesis. Mildly dilated RV not well visualized, likely moderately reduced function Valves not well visualized, no significant disease #uncontrolled diabetes mellitus -moderate sliding scale -lantus 10 units #hypothyroidism -levothyroxine 200mcg #Afib on amiodarone (currently on hold due to bradycardia) PUD prophylaxis: not given DVT prophylaxis: eliquis 5mg bd Goals of care: Full code, discussed for > 16 minutes on 03/25/25 Plan discussed with patient's son Plan discussed with Dr Pitts Plan discussed with: Patient, Son My Orders My Orders Orders - PING SANCHEZ Procedure Category Date Status Time Insert Midline ORDERS 03/25/25 Transmitted 16:06 Discharge DISCHARGE 03/25/25 Transmitted 16:10 * Manager Gyn CONS 03/25/25 Transmitted Consult Dietary Evaluation Review Comments: 1) Initiate MVI @ 1 tb qd 2) Encourage optimal PO intake 3) Refer to outpatient RD/CDCES for weight management 4) Continue to monitor I&O, labs, and skin integrity Expected Outcomes/Goals: 1) appetite and labs to improve 2) wound to improve 3) f/u in 3-5 days Date of Service: Mar 25, 2025 Billing Provider: NEO PITTS MD Common Visit Codes: [id number] INP/OBS CARE(HIGH) PING SANCHEZ Mar 25, 2025 16:38 NEO PITTS MD Mar 26, 2025 19:48
[2025-03-26 07:10] LABS: Nucleated Red Blood Cells % 0.2 %
[2025-03-26 07:13] LABS: Hematocrit 39.8 % (36.0-46.0); Hemoglobin 13.1 g/dL (12.2-16.2); Mean Corpuscular Hemoglobin 27.0 pg (28.0-32.0); Mean Corpuscular Volume 81.8 fL (80.0-100.0)
[2025-03-26 07:14] LABS: Anion Gap 8 (5-15); Carbon Dioxide 30 mmol/L (20-31); Chloride 102 mmol/L (98-107); Potassium 3.9 mmol/L (3.5-5.1); Sodium 140 mmol/L (136-145)
[2025-03-26 07:15] LABS: Calcium 9.1 mg/dL (8.7-10.4)
[2025-03-26 07:20] VITALS: O2SAT 98
[2025-03-26 07:20] LABS: BUN/Creatinine Ratio 21.9 (10.0-20.0); Blood Urea Nitrogen 16 mg/dL (9-23); Glucose 100 mg/dL (74-106)
[2025-03-26 08:00] VITALS: PULSE 92
[2025-03-26] MEDS: ERTAPENEM SOD INJ 1 GM in SODIUM CHL 0.9% 50 ML IV SCH (09:36)
[2025-03-26 09:45] VITALS: BP 143/70; PULSE 60; RESP 16; TEMP 97.9; O2SAT 97
[2025-03-26 10:00] VITALS: O2SAT 98
--- NOTE | 2025-03-26 15:34 | DVHPNRES ---
Progress Note Date Seen: Mar 26, 2025 Resident Creating Document: PING SANCHEZ RESIDENT Medical Necessity Reason Pt with a Central, PICC or Fol: Yes The following are medically ne: Kong Catheter Reason for kong catheter: Total Immobilization Subjective Review of Systems The patient is a 69-year-old female with prior medical history of CHF, hemiparesis after a stroke, AFib, hypertension, who presented to ER from [facility] with the chief complaint of chest pain. Patient states that she has had the pain for 3 days, it is more on the left side and is radiating to the left arm. It is associated with shortness of breath. The patient denies fever or chills. evaluation dizzy, patient was found to be in moderate distress. 12 lead EKG in the ED shows sinus rhythm with possible left bundle-branch block. Initial labs though CBC within normal range and CMP significant serum glucose 427, lactic acid 2.8. Troponins were negative and BNP 95. Chest x-ray shows infiltrate in the left lung probable right pleural effusion both stable from previous studies. She was admitted for further workup and monitoring. Past medical history: sepsis, CHF, hemiparesis after stroke, Afib, pneumonia Social & Personal history: lives at [facility] Allergies: unknown Patient seen and examined at bedside. Patient is AOX2, currently states she feels better, denies chest pain and shortness of breath. States she is breathing adequately on 2 L of oxygen. She has been slightly bradycardic since yesterday, Otherwise vitals are stable. Follow up labs are within normal range, POC glucose today at 125. Preliminary urine culture growing >100.000 CFU/mL Gram-negative rods. Nystatin powder has been added to address current rashes in inguinal folds. We will continue to monitor. Patient mentions she has some pain in the pelvic area and has rash. Urine culture grew E.coli and Enterococcus fecalis, so antibiotic was changed to ertapenem (ivanz) 1 gm daily iv via midline at the SNF. horticultural services supervisor was consulted for the same. She was discharged back to [facility] on 03/26 and transport was arranged by social secretary with a midline. General Appearance: right sided hemiparesis, bruise on left forearm Head Exam: Normal inspection Neck Exam: Normal inspection. Non-tender. Normal alignment Pulmonary/Respiratory: Chest tender, reduced breath sounds, no crackles, no wheezing. Cardiovascular/Chest: Regular rate and rhythm. No murmurs. No JVD. Peripheral Pulses: 2+ Radial (R). 2+ Radial (L). 2+ Pedal (R). 2+ Pedal (L) Abdominal Exam: obese abdomen, Normal bowel sounds. Soft, no visible veins, tenderness in lower abdomen, No hepatospenomegaly. No masses, wound scars on abdomen, redness and rash in skin fold in inguinal area : Presence of kong draining clear urine Ankle Exam: Negative ankle edema Lower extremities: Negative lower extremity edema Neuro/Mental Status: A&O x1, non Coherent, weakness of right upper and lower extremity Skin Exam: Normal color. Warm. Dry, redness and rash in skin fold in inguinal area Objective vital signs Vital Sign Date Time Temp Pulse Resp B/P (MAP) Pulse Ox O2 Delivery O2 Flow Rate FiO2 03/26/25 10:00 98 Nasal Cannula 2.0 03/26/25 10:00 28 03/26/25 09:45 97.9 60 16 143/70 (94) 97.9 Total Intake and Output 03/25/25 03/25/25 03/26/25 15:00 23:00 07:00 Intake Total 650 ml 240 ml 534 ml Output Total 1100 ml 900 ml Balance 650 ml -860 ml -366 ml laboratory and microbiology Laboratory Tests 03/26/25 05:44 Test 03/26/25 05:44 Range/Units Serum Glucose 100 74-106 mg/dL Microbiology Date/Time Source Procedure Growth Status 03/20/25 18:28 Voided Urine Urine Culture - Final Escherichia coli - ESBL Enterococcus faecalis Complete Problem List/Assessment/Plan Problem List/Assessment/Plan #chest pain, ruled out ACS -ekg normal sinus rhythm # community acquired pna, gram + vs -ve -azithromycin iv # acute complicated UTI- urine culture growing E.coli and Enterococcus fecalis ceftriaxone iv-d/c ivanz 1gm iv daily #sepsis likely d/t above #MARLON hemodynamically mediated/VMN managed with IV fluids #CHF with reduced EF LVEF severely reduced at 30-35%, global hypokinesis. Mildly dilated RV not well visualized, likely moderately reduced function Valves not well visualized, no significant disease #uncontrolled diabetes mellitus -moderate sliding scale -lantus 10 units #hypothyroidism -levothyroxine 200mcg #Afib on amiodarone (currently on hold due to bradycardia) PUD prophylaxis: not given DVT prophylaxis: eliquis 5mg bd Goals of care: Full code, discussed for > 16 minutes on 03/26/25 Plan discussed with patient's son Plan discussed with Dr Pitts Plan discussed with: Son My Orders My Orders Orders - PING SANCHEZ Procedure Category Date Status Time Insert Midline ORDERS 03/25/25 Transmitted 16:06 * Photographic Equipment Mechanic CONS 03/25/25 Transmitted Consult * Photographic Equipment Mechanic CONS 03/25/25 Transmitted Consult Discharge DISCHARGE 03/26/25 Transmitted 08:39 Dietary Evaluation Review Comments: 1) Initiate MVI @ 1 tb qd 2) Encourage optimal PO intake 3) Refer to outpatient RD/CDCES for weight management 4) Continue to monitor I&O, labs, and skin integrity Expected Outcomes/Goals: 1) appetite and labs to improve 2) wound to improve 3) f/u in 3-5 days Date of Service: Mar 26, 2025 Billing Provider: NEO PITTS MD Common Visit Codes: [id number] INP/OBS CARE(MOD) PING SANCHEZ RESIDENT Mar 26, 2025 15:34 NEO PITTS MD Mar 26, 2025 19:49
== END 2025-03-26 12:45 | DRG 871 ==
LOC: ER 15:15 → EDBD 15:15 → OVERFLOW 23:00 → TELE-WESTW 03-21 16:59
PROVIDERS: ADMIT Internal Medicine Geriatric Medicine; ATTEND Internal Medicine Geriatric Medicine
PROC: 05HA33Z Insertion of Infusion Device into Left Brachial Vein, Percutaneous Approach (ICD-10-PCS; principal; 2025-03-25)
PROC: B54NZZA Ultrasonography of Left Upper Extremity Veins, Guidance (ICD-10-PCS; 2025-03-25)
DX: A41.59 Other Gram-negative sepsis (principal); J15.69 Pneumonia due to other Gram-negative bacteria; N17.0 Acute kidney failure with tubular necrosis; J96.01 Acute respiratory failure with hypoxia; J15.9 Unspecified bacterial pneumonia; N39.0 Urinary tract infection, site not specified; J90 Pleural effusion, not elsewhere classified; I69.351 Hemiplegia and hemiparesis following cerebral infarction affecting right dominant side; I50.22 Chronic systolic (congestive) heart failure; D68.69 Other thrombophilia; B37.89 Other sites of candidiasis; E03.9 Hypothyroidism, unspecified; E11.65 Type 2 diabetes mellitus with hyperglycemia; I48.91 Unspecified atrial fibrillation; E66.01 Morbid (severe) obesity due to excess calories; I11.0 Hypertensive heart disease with heart failure; J45.909 Unspecified asthma, uncomplicated; B95.2 Enterococcus as the cause of diseases classified elsewhere; B96.20 Unspecified Escherichia coli [E. coli] as the cause of diseases classified elsewhere; Z68.39 Body mass index [BMI] 39.0-39.9, adult; Z79.899 Other long term (current) drug therapy
CPT/HCPCS: 36415; 71045; 76604; 80048; 80053; 81001; 82962; 83605; 83735; 83880; 84439; 84443; 84480; 84484; 85025; 85379; 85610; 85730; 87086; 87088; 87186; 87426; 87804; 93005; 96365; 96375; G0378; J1335; J1815; J2185; J2405

== ENCOUNTER 2025-06-04 15:20 | Inpatient (IN) | payer MEDICARE, OTHER ==
[~2025-06-04] VITALS: Ht 170.2 cm; Wt 106.7 kg
[~2025-06-04 15:20] MED LIST: AMIO200T13 PO; APIX5TAB PO; ASPI-325 PO; ATOR20TA50 PO; CEPH250C PO; FURO40TA4 PO; INSLANTI SC; INSREGI SC; LEVO100T8 PO
[2025-06-04] MEDS: SODIUM CHLORIDE 0.9% 1,000 ML IV ONE ×3 (15:30→16:30)
--- NOTE | 2025-06-04 15:34 | ED.PDOC ---
History of Present Illness HPI Comments 69-year-old female BIBA with prior medical history of CVA, thyroid, diabetes, hypertension, hypotension, dementia, anxiety and a chief complaint of a fall. EMS report on picking the patient up from [facility] nursing facility due from the patient falling off of her bed which is 3 ft high, and having right arm pain. There was no witnesses during the fall. Denies any other symptoms at this time. Denies chills, fever, N/V/D, SOB, CP. No other associated symptoms, modifiers, recent injuries or sick contacts present at this time. Time Seen by MD: 15:30 Reviewed Notes: Nurses Notes, Medications, Allergies Allergies: Coded Allergies: NO KNOWN ALLERGIES (Unverified , 02/11/25) Home Meds Active Scripts Cephalexin (KEFLEX CAPSULE) 250 Mg Cp, 1 CAP PO QID for 5 Days, #40 CAP Prov:BOBBY TORRES RESIDENT 03/24/25 Insulin Regular (Human) (Novolin R) 100 Unit/Ml Inj, 0 UNITS SC IQ4HR for 30 Days, #10 INJ Please use insulin Regular 3 times a day before meal. Follow below instruction. Please check glucose via glucometer 3 times a day. If blood glucose is between 150 and 200 please administer 2 units of regular insulin. If blood glucose is between 200-250 please administer 4 units of regular insulin. If blood sugar is between 250 and 300 please administer 8 units of regular insulin. If blood sugar between 300-350 please administered 10 units of regular insulin. If blood sugars between 350 and 400 please administer 12 units of regular insulin. If blood sugars greater than 400 please talk to /come to the hospital. Prov:BOBBY TORRES RESIDENT 03/24/25 Levothyroxine Sodium (Levothyroxine Sodium) 100 Mcg Tab, 200 MCG PO QAM@0600 for 30 Days, #30 TAB Prov:BOBBY TORRES 03/24/25 Insulin Glargine (Lantus) 100 Unit/Ml Inj, 10 UNITS SC HS for 30 Days, #30 INJ Prov:BOBBY TORRES RESIDENT 03/24/25 Furosemide (Furosemide) 40 Mg Tab, 40 MG PO DAILY for 30 Days, #30 TAB Prov:BOBBY TORRES RESIDENT 03/24/25 Atorvastatin Calcium (ATORVASTATIN CALCIUM) 20 Mg Tab, 10 MG PO HS for 30 Days, #15 TAB Prov:BOBBY TORRES RESIDENT 03/24/25 Aspirin (Aspirin Low Dose) 81 Mg Tab, 81 MG PO DAILY for 30 Days, #30 TAB Prov:BOBBY TORRES RESIDENT 03/24/25 Apixaban Base (ELIQUIS) 5 Mg Tab, 5 MG PO BID for 30 Days, #60 TAB Prov:BOBBY TORRES RESIDENT 03/24/25 Amiodarone HCl (Amiodarone HCl) 200 Mg Tab, 200 MG PO DAILY for 30 Days, #30 TAB Prov:BOBBY TORRES RESIDENT 03/24/25 Information Source: Emergency Med Personnel Mode of Arrival: EMS Severity: Moderate Timing: Minutes Duration: Since onset, Minutes Prehospital treatment: None Past Medical History PAST MEDICAL HISTORY: Anxiety, Asthma, CVA, Dementia, DM, HTN, Hypotension, Thyroid Surgical History: Denies all surgeries OCCUPATIONAL THERAPY CO DIRECTOR History: Denies all OCCUPATIONAL THERAPY CO DIRECTOR Hx Family History Family History: Reviewed,noncontributory to illness, Unknown Social History Smoker: Non-Smoker Alcohol: Denies ETOH Use Drugs: Denies Drug Use Lives In: Group Home Musculoskeletal: reports: others (Right arm pain status post falling off bed per EMS) Unable to Obtain due to: Dementia All Other Systems: Reviewed and Negative Physical Exam General Appearance: Moderate Distress, Normal HEENT: Normal ENT Inspection, Pharynx Normal, TMs Normal Neck: Full Range of Motion, Non-Tender, Normal, Normal Inspection Respiratory: Chest Non-Tender, Lungs Clear, No Accessory Muscle Use, No Respiratory Distress, Normal Breath Sounds Cardiovascular: No Edema, No JVD, No Murmur, No Gallop, Normal Peripheral Pulses, Regular Rate/Rhythm Breast Exam: Deferred Gastrointestinal: No Organomegaly, Non Tender, No Pulsatile Mass, Normal Bowel Sounds, Soft Genitalia: Deferred Pelvic: Deferred Rectal: Deferred Extremities: No calf tenderness, Normal capillary refill, No pedal edema Musculoskeletal : Apperance: Normal Neurologic: Alert, county director II-XII nml as Tested, No Motor Deficits, Normal Affect, Normal Mood, No Sensory Deficits Cerebellar Function: NOT DONE Reflexes: NOT DONE Skin: Dry, Normal Color, Warm Peripheral Pulses: 3+ Radial (R), 3+ Radial (L) Lymphatic: No Adenopathy Was a procedure done? Was a procedure done?: No Differential Dx Considerations may include: Anemia Electrolyte imbalance X-Ray, Labs, Meds, VS Vital Signs Date Time Temp Pulse Resp B/P (MAP) Pulse Ox O2 Delivery O2 Flow Rate FiO2 06/04/25 15:30 97.9 85 16 136/81 94 97.9 Lab Test 06/04/25 15:51 Range/Units White Blood Count 11.3 H 4.4-10.8 10^3/uL Red Blood Count 4.99 4.0-5.20 10^6/uL Hemoglobin 14.2 12.2-16.2 g/dL Hematocrit 43.7 36.0-46.0 % Mean Corpuscular Volume 87.5 80.0-100.0 fL Mean Corpuscular Hemoglobin 28.5 28.0-32.0 pg Mean Corpuscular Hemoglobin Concent 32.6 32.0-36.0 g/dL Red Cell Distribution Width 15.4 H 11.8-14.3 % Platelet Count 277 140-450 10^3/uL Mean Platelet Volume 7.6 6.9-10.8 fL Neutrophils (%) (Auto) 80.2 H 37.0-80.0 % Lymphocytes (%) (Auto) 9.9 L 10.0-50.0 % Monocytes (%) (Auto) 6.8 0.0-12.0 % Eosinophils (%) (Auto) 1.8 0.0-7.0 % Basophils (%) (Auto) 1.3 0.0-2.0 % Neutrophils # (Auto) 9.1 H 1.6-8.6 10 ^3/uL Lymphocytes # (Auto) 1.1 0.4-5.4 10 ^3/uL Monocytes # (Auto) 0.8 0-1.3 10 ^3/uL Eosinophils # (Auto) 0.2 0-0.8 10 ^3/uL Basophils # (Auto) 0.1 0-0.2 10 ^3/uL Nucleated Red Blood Cells 0.0 % Sodium Level 128 L 136-145 mmol/L Potassium Level 4.4 3.5-5.1 mmol/L Chloride Level 91 L 98-107 mmol/L Carbon Dioxide Level 26 20-31 mmol/L Anion Gap 11 5-15 Blood Urea Nitrogen 25 H 9-23 mg/dL Creatinine 1.23 H 0.550-1.02 mg/dL Glomerular Filtration Rate Calc 48 >90 mL/min BUN/Creatinine Ratio 20.3 H 10.0-20.0 Serum Glucose 690 *H 74-106 mg/dL Calcium Level 9.9 8.7-10.4 mg/dL Patient history of dementia. Came in because of fall. Has a sling in place. Blood pressure within normal limits. Heart rate within normal limits. WBC elevated. Possibly urinary tract infection. Has a Atwood catheter in place. Hyponatremia. Acute kidney injury. Was given Rocephin. Continue monitoring. Time of 1ST Reevaluation: 16:00 Reevaluation 1ST: Unchanged Patient Education/Counseling: Other (Patient has dementia) Family Education/Counseling: No Family Present SEPSIS Sepsis Screen Physician Orders R Shoulder 1v Xray (06/04/25 15:29) Pelvis Ap (06/04/25 15:29) Urinalysis (06/04/25 15:22) Sodium Chloride 0.9% (06/04/25 16:30) Vital Signs Date Time Temp Pulse Resp B/P (MAP) Pulse Ox O2 Delivery O2 Flow Rate FiO2 06/04/25 15:30 97.9 85 16 136/81 94 97.9 Laboratory Tests Test 06/04/25 15:51 White Blood Count 11.3 10^3/uL (4.4-10.8) H Departure 1 Departure Time of Disposition: 16:27 Impression: Primary Impression: Sepsis, unspecified organism Qualified Codes: A41.9 - Sepsis, unspecified organism Disposition: ADMITTED INPATIENT Admit to: Med Surg Condition: Guarded Critical Care Note Critical Care Time?: Yes (90 min-critical care time only) Stability Stability form required: No Heart Score Heart Score: Heart Score Response (Comments) Value History N/A 0 EKG N/A 0 Age N/A 0 Risk Factors N/A 0 Troponin N/A 0 Total 0 I personally scribed for PRIMITIVO OHARA MD ([email or web address]) on 06/04/25 at 15:34. Electronically submitted by Lucho Soto ([email or web address]). PRIMITIVO OHARA MD Jun 04, 2025 15:34
[2025-06-04 16:00] LABS: Hematocrit 43.7 % (36.0-46.0); Hemoglobin 14.2 g/dL (12.2-16.2); Mean Corpuscular Hemoglobin 28.5 pg (28.0-32.0); Mean Corpuscular Volume 87.5 fL (80.0-100.0); Nucleated Red Blood Cells % 0.0 %
[2025-06-04 16:08] LABS: Potassium 4.4 mmol/L (3.5-5.1)
[2025-06-04 16:09] LABS: Anion Gap 11 (5-15); Carbon Dioxide 26 mmol/L (20-31)
[2025-06-04 16:10] LABS: Calcium 9.9 mg/dL (8.7-10.4)
[2025-06-04 16:14] LABS: BUN/Creatinine Ratio 20.3 (10.0-20.0)
[2025-06-04 16:19] LABS: Blood Urea Nitrogen 25 mg/dL (9-23); Chloride 91 mmol/L (98-107); Sodium 128 mmol/L (136-145)
[2025-06-04 16:27] LABS: Glucose 690 mg/dL (74-106)
[2025-06-04] MEDS: CLINDAMYCIN 300MG IV 50 ML IV ONE (16:30)
[2025-06-04] MEDS ORDERED: MORPHINE SULFATE INJ 2 MG/ml SYRG IV PRN (18:30)
[2025-06-04] MEDS ORDERED: ACETAMINOPHEN 325 MG TAB PO PRN (18:30)
[2025-06-04] MEDS: ENOXAPARIN SOD 40 MG/0.4 ML SYRINGE SC SCH (18:30)
[2025-06-04] MEDS ORDERED: NITROGLYCERIN 0.4 MG SL TAB SL PRN (18:30)
--- NOTE | 2025-06-04 18:32 | DVHPN2 ---
Progress Note Date Seen: Jun 04, 2025 Medical Necessity Reason Pt with a Central, PICC or Fol: No Subjective Review of Systems: HEENT:Normal, CVS:Normal, RESPIRATORY:Normal Objective vital signs Vital Sign Date Time Temp Pulse Resp B/P (MAP) Pulse Ox O2 Delivery O2 Flow Rate FiO2 06/04/25 18:00 97.9 79 16 130/86 (101) 97 97.9 06/04/25 15:30 Nasal Cannula* 2 28 Examination: GENERAL:Normal, HEENT:Normal, NECK:Normal laboratory and microbiology Laboratory Tests 06/04/25 15:51 Test 06/04/25 15:51 Range/Units Serum Glucose 690 *H 74-106 mg/dL Labs and/or images reviewed: Labs reviewed by me, Image(s) reviewed by me Problem List/Assessment/Plan Problem List/Assessment/Plan 69-year-old female BIBA with prior medical history of CVA, thyroid, diabetes, hypertension, hypotension, dementia, anxiety and a chief complaint of a fall. EMS report on picking the patient up from [facility] nursing facility due from the patient falling off of her bed which is 3 ft high, and having right arm pain. There was no witnesses during the fall. Denies any other symptoms at this time. Denies chills, fever, N/V/D, SOB, CP. No other associated symptoms, modifiers, recent injuries or sick contacts present at this time. HHS/Dm with hyperglycemia multiple falls CVA hx hypothyroidism Dm type II HTN dementia anxiety fall, mechanical sepsis with UTI acute UTI DM with hyperosmolarity admitted to med/surg consult to endocrine if needed empirical iv abx Plan discussed with: Patient My Orders My Orders Orders - KELIN LEACH DO Procedure Category Date Status Time Admit ADMIT 06/04/25 Transmitted 18:29 Code Status CODE 06/04/25 Transmitted 18:29 Hydrocodone-Acet PHA 06/04/25 Transmitted 5/325mg Tab ([place] 18:30 Ondansetron Hcl PHA 06/04/25 Transmitted (Zofran) 18:30 Complete Blood Count LAB 06/05/25 Verified 04:00 Comprehensive LAB 06/05/25 Verified Metabolic Panel 04:00 Cardiac DIET 06/04/25 Transmitted Diet-2gna,Lofat,Lochol Dinner Condition: Serious JASON 06/04/25 Transmitted 18:29 Acetaminophen Tablet PHA 06/04/25 Transmitted (Tylenol Tablet) 18:30 Morphine Sulfate [facility] 06/04/25 Transmitted Injection 18:30 Lovenox 40mg [facility] 06/04/25 Transmitted 18:30 Nitroglycerin [facility] 06/04/25 Transmitted Sublingual (Ntrostat 18:30 Morphine Sulfate [facility] 06/04/25 Transmitted Injection 18:30 Stat Ekg For Chest [facility] 06/04/25 Transmitted Pain 18:29 Notify Of Changes [facility] 06/04/25 Transmitted From Base 18:29 Granulator For [facility] 06/04/25 Transmitted 24 Hours 18:29 Emergency Dysrhythmia [facility] 06/04/25 Transmitted Protocol 18:29 Rhythm Strips Once [facility] 06/04/25 Transmitted Every Shift 18:29 Oxygen By Nasal RT 06/04/25 Transmitted Cannula 18:29 KELIN LEACH DO Jun 04, 2025 18:32
[2025-06-04] MEDS ORDERED: DEXTROSE (50%) 50ML SYRG IV PRN (18:45)
[2025-06-04 19:51] VITALS: PULSE 90; RESP 20; O2SAT 98
[2025-06-04] MEDS: INSULIN LANTUS (GLARGINE) 1 /0.01ml (100units/ml) SC SCH (21:50)
[2025-06-04] MEDS: InsuLIN REG 1unit/0.01ml Soln (100units/ml) SC ONE (22:39)
[2025-06-04] MEDS: MORPHINE SULFATE INJ 2 MG/ml SYRG IV PRN (23:00)
[2025-06-04] MEDS: ONDANSETRON HCL 4 MG/2 ML VIAL IV PRN (23:00)
[2025-06-04] MEDS: ACCU-CHEK COMFORT CURVE STRIP VI SCH (23:45)
[2025-06-04] MEDS: InsuLIN REG 1unit/0.01ml Soln (100units/ml) SC SCH (23:47)
[2025-06-05 00:40] VITALS: BP 136/78; PULSE 75; RESP 18; TEMP 98.1; O2SAT 97
[2025-06-05 04:32] VITALS: BP 153/85; PULSE 79; RESP 18; TEMP 98.3; O2SAT 95
[2025-06-05 07:04] LABS: Hematocrit 42.1 % (36.0-46.0); Hemoglobin 14.3 g/dL (12.2-16.2); Mean Corpuscular Hemoglobin 28.9 pg (28.0-32.0); Mean Corpuscular Volume 85.4 fL (80.0-100.0); Nucleated Red Blood Cells % 0.0 %
[2025-06-05 07:11] LABS: Alanine Aminotransferase 61 U/L (7-40); Albumin 4.5 g/dL (3.2-4.8); Alkaline Phosphatase 149 U/L (46-116); Anion Gap 9 (5-15); BUN/Creatinine Ratio 20.8 (10.0-20.0); Blood Urea Nitrogen 26 mg/dL (9-23); Calcium 9.9 mg/dL (8.7-10.4); Carbon Dioxide 32 mmol/L (20-31); Chloride 94 mmol/L (98-107); Glucose 275 mg/dL (74-106); Potassium 4.4 mmol/L (3.5-5.1); Sodium 135 mmol/L (136-145); Total Protein 7.8 g/dL (5.7-8.2)
[2025-06-05 07:12] LABS: Bilirubin, Total 0.4 mg/dL (0.2-1.0)
[2025-06-05 08:10] VITALS: PULSE 82; RESP 19; O2SAT 97
[2025-06-05 08:49] VITALS: BP 128/64; PULSE 82; RESP 19; TEMP 98.4; O2SAT 97
[2025-06-05] MEDS: HYDROcodone-ACET 5/325MG TAB PO PRN (14:59)
[2025-06-05 16:36] VITALS: BP 152/85; PULSE 72; RESP 18; TEMP 98.5; O2SAT 94
[2025-06-05 21:00] VITALS: BP 169/76; PULSE 60; RESP 20; TEMP 98; O2SAT 98
[2025-06-06] VITALS (8 sets, daily range): BP systolic 128–182; BP diastolic 72–88; PULSE 66–83; RESP 14–19; TEMP 97.1–98.6; O2SAT 95–98
[2025-06-06 12:09] LABS: Urine Budding Yeast MANY /hpf (None Seen); Urine Protein, UAD TRACE (Negative)
--- NOTE | 2025-06-06 15:42 | DVH ---
CLINICAL INDICATION: fall TECHNIQUE: 1 radiographic views of the pelvis were obtained. Comparison: None FINDINGS/IMPRESSION: Osteoarthritic changes are noted both hips. If fracture is of clinical concern recommend CT of the pe lvis.
--- NOTE | 2025-06-06 18:15 | DVH ---
CLINICAL INDICATION: fall TECHNIQUE: 2 radiographic views of the right shoulder were obtained. Comparison: None FINDINGS/IMPRESSION: No prior studies for comparison Old healed fracture proximal humerus. Calcification surrounding of the humeral head irregularity of the glenoid fossa. Acromioclavicular joint shows degenerative arthritic changes Calcifications in the acromial humeral joint space may be secondary to chronic tendinitis. Consider CT of the shoulder to exclude trauma to the glenoid fossa.
--- NOTE | 2025-06-07 11:17 | DVHDS2 ---
Discharge Summary Date of Admission Jun 04, 2025 at 18:29 Date of Discharge: Jun 06, 2025 Labs/Diagnostic Data: Laboratory Results Test 06/06/25 11:29 06/06/25 10:50 06/05/25 06:01 POC Glucose 252 mg/dl (70-106) Urine Color Light-yellow (Yellow) Urine Clarity Cloudy (Clear) Urine pH 5.5 (5.0-9.0) Urine Specific [place] 1.022 (1.001-1.035) Urine Protein Trace (Negative) Urine Ketones Negative (Negative) Urine Blood Negative /uL (Negative) Urine Nitrite Negative (Negative) Urine Bilirubin Negative (Negative) Urine Urobilinogen Normal mg/dL (Negative) Urine Leukocyte Esterase 3+ /uL (Negative) Urine RBC 7 /hpf (0 - 4) Urine Microscopic WBC 268 /HPF (0-5) Urine Squamous Epithelial Cells Few /hpf (<5) Urine Bacteria Few /hpf (None Seen) Urine Yeast (Budding) Many /hpf (None Seen) Urine Glucose 4+ mg/dL (Normal) White Blood Count 9.6 10^3/uL (4.4-10.8) Red Blood Count 4.93 10^6/uL (4.0-5.20) Hemoglobin 14.3 g/dL (12.2-16.2) Hematocrit 42.1 % (36.0-46.0) Mean Corpuscular Volume 85.4 fL (80.0-100.0) Mean Corpuscular Hemoglobin 28.9 pg (28.0-32.0) Mean Corpuscular Hemoglobin Concent 33.9 g/dL (32.0-36.0) Red Cell Distribution Width 15.1 % (11.8-14.3) Platelet Count 259 10^3/uL (140-450) Mean Platelet Volume 8.0 fL (6.9-10.8) Neutrophils (%) (Auto) 72.4 % (37.0-80.0) Lymphocytes (%) (Auto) 15.9 % (10.0-50.0) Monocytes (%) (Auto) 8.5 % (0.0-12.0) Eosinophils (%) (Auto) 2.1 % (0.0-7.0) Basophils (%) (Auto) 1.1 % (0.0-2.0) Neutrophils # (Auto) 6.9 10 ^3/uL (1.6-8.6) Lymphocytes # (Auto) 1.5 10 ^3/uL (0.4-5.4) Monocytes # (Auto) 0.8 10 ^3/uL (0-1.3) Eosinophils # (Auto) 0.2 10 ^3/uL (0-0.8) Basophils # (Auto) 0.1 10 ^3/uL (0-0.2) Nucleated Red Blood Cells 0.0 % Sodium Level 135 mmol/L (136-145) Potassium Level 4.4 mmol/L (3.5-5.1) Chloride Level 94 mmol/L (98-107) Carbon Dioxide Level 32 mmol/L (20-31) Anion Gap 9 (5-15) Blood Urea Nitrogen 26 mg/dL (9-23) Creatinine 1.25 mg/dL (0.550-1.02) Glomerular Filtration Rate Calc 47 mL/min (>90) BUN/Creatinine Ratio 20.8 (10.0-20.0) Serum Glucose 275 mg/dL (74-106) Calcium Level 9.9 mg/dL (8.7-10.4) Total Bilirubin 0.4 mg/dL (0.2-1.0) Aspartate Amino Transferase (AST) 19 U/L (13-40) Alanine Aminotransferase (ALT) 61 U/L (7-40) Alkaline Phosphatase 149 U/L (46-116) Total Protein 7.8 g/dL (5.7-8.2) Albumin 4.5 g/dL (3.2-4.8) Other Laboratory Tests 06/05/25 06:01 Brief Hx & Hospital Course: 69-year-old female BIBA with prior medical history of CVA, thyroid, diabetes, hypertension, hypotension, dementia, anxiety and a chief complaint of a fall. EMS report on picking the patient up from [facility] nursing facility due from the patient falling off of her bed which is 3 ft high, and having right arm pain. There was no witnesses during the fall. Denies any other symptoms at this time. Denies chills, fever, N/V/D, SOB, CP. No other associated symptoms, modifiers, recent injuries or sick contacts present at this time. HHS/Dm with hyperglycemia multiple falls CVA hx hypothyroidism Dm type II HTN dementia anxiety fall, mechanical sepsis with UTI acute UTI DM with hyperosmolarity admitted to med/surg consult to endocrine if needed empirical iv abx Condition at Discharge: Fair Final Diagnosis/Problems List see above Discharge Disposition: Assisted Living Facility Discharge Instruct/Medications Diet: Cardiac 2g Na,low cholest Activity: No Restrictions, As Tolerated Scheduled Amiodarone HCl (Amiodarone HCl), 200 MG PO DAILY Apixaban Base (Eliquis), 5 MG PO BID Aspirin (Aspirin Low Dose), 81 MG PO DAILY Atorvastatin Calcium (Atorvastatin Calcium), 10 MG PO HS Cephalexin (Keflex Capsule), 1 CAP PO QID Furosemide (Furosemide), 40 MG PO DAILY Insulin Glargine (Lantus), 10 UNITS SC HS Insulin Regular (Human) (Novolin R), 0 UNITS SC IQ4HR Levothyroxine Sodium (Levothyroxine Sodium), 200 MCG PO QAM@0600 Discharge Statement: "Patient was advised to return to the ER or call 911 if any headaches, dizziness, shortness of breath, chest pain, abdominal pain, bleeding, fevers, or worsening of medical condition. Patient was counseled about treatment plan, medications, possible side effects, patientverbalized understanding. All questions were answered to the best of my ability. This discharge took greater then 30 minutes in planning, reviewing documentation, counseling the patient, and discussing with other team members." ASSESSMENT ASSESSMENT Assessment KELIN LEACH DO Jun 06, 2025 15:35
--- NOTE | 2025-06-07 11:17 | DVHPN2 ---
Progress Note Date Seen: Jun 05, 2025 Medical Necessity Reason Pt with a Central, PICC or Fol: No Subjective Patient reports: No new complaints Objective vital signs Vital Sign Date Time Temp Pulse Resp B/P (MAP) Pulse Ox O2 Delivery O2 Flow Rate FiO2 06/06/25 14:58 75 20 132/67 06/06/25 13:00 97.1 95 97.1 06/06/25 08:00 Nasal Cannula* 2 28 Total Intake and Output 06/05/25 06/05/25 06/06/25 15:00 23:00 07:00 Intake Total 600 ml 600 ml 980 ml Output Total 650 ml 69 ml Balance 600 ml -50 ml 911 ml medications Current Medications Medications Dose Ordered Sig/Lindsey Route Start Time Stop Time Status Last Admin Dose Admin Acetaminophen/ Hydrocodone Bitart 1 tab Q4HP PRN PO 06/04/25 18:30 06/05/25 14:59 1 TAB Ondansetron HCl 4 mg Q4HP PRN IV 06/04/25 18:30 06/04/25 23:00 4 MG Acetaminophen 650 mg Q6HP PRN PO 06/04/25 18:30 Morphine Sulfate 2 mg Q4HPRN PRN IV 06/04/25 18:30 06/06/25 14:58 2 MG Enoxaparin Sodium 40 mg DAILY SC 06/04/25 18:30 06/06/25 10:41 40 MG Nitroglycerin 0.4 mg Q5MINP PRN SL 06/04/25 18:30 Morphine Sulfate 2 mg Q30M PRN IV 06/04/25 18:30 Diagnostic Test (Pha) 1 strip Q6HR 06/05/25 00:00 06/06/25 12:00 1 STRIP Insulin Human Regular Q6HR SC 06/05/25 00:00 06/06/25 12:00 9 UNITS Dextrose 50 ml UD PRN IV 06/04/25 18:45 Insulin Glargine 15 units BID@0700,2200 AL 06/04/25 22:00 06/06/25 06:52 15 UNITS laboratory and microbiology Laboratory Tests 06/05/25 06:01 Test 06/05/25 06:01 Range/Units Serum Glucose 275 H 74-106 mg/dL Microbiology Date/Time Source Procedure Growth Status 06/05/25 04:12 Nose MRSA Screen - Final Methicillin Resistant S.aureus Complete Problem List/Assessment/Plan Problem List/Assessment/Plan 69-year-old female BIBA with prior medical history of CVA, thyroid, diabetes, hypertension, hypotension, dementia, anxiety and a chief complaint of a fall. EMS report on picking the patient up from [facility] nursing facility due from the patient falling off of her bed which is 3 ft high, and having right arm pain. There was no witnesses during the fall. Denies any other symptoms at this time. Denies chills, fever, N/V/D, SOB, CP. No other associated symptoms, modifiers, recent injuries or sick contacts present at this time. HHS/Dm with hyperglycemia multiple falls CVA hx hypothyroidism Dm type II HTN dementia anxiety fall, mechanical sepsis with UTI acute UTI DM with hyperosmolarity admitted to med/surg consult to endocrine if needed empirical iv abx Plan discussed with: Patient My Orders My Orders Orders - KELIN LEACH DO Procedure Category Date Status Time Cleanse Wound With JASON 06/05/25 In Process Mild Soap A 13:30 Dietary Evaluation Review Comments: 1) Consider CCHO 60gm + cardiac diet 2) Monitor PO intake, lab values, weight trend, and I/O Expected Outcomes/Goals: Intake to meet >75% estimated needs Lab values to improve Fu 3-5 days KELIN LEACH DO Jun 06, 2025 15:22
--- NOTE | 2025-06-07 11:17 | DVHHP2 ---
History of Present Illness HPI 69-year-old female BIBA with prior medical history of CVA, thyroid, diabetes, hypertension, hypotension, dementia, anxiety and a chief complaint of a fall. EMS report on picking the patient up from [facility] facility due from the patient falling off of her bed which is 3 ft high, and having right arm pain. T here was no witnesses during the fall. Denies any other symptoms at this time. Denies chills, fever, N/V/D, SOB, CP. No other associated symptoms, modifiers, recent injuries or sick contacts present at this time. Home Meds Active Scripts Cephalexin (KEFLEX CAPSULE) 250 Mg Cp, 1 CAP PO QID for 5 Days, #40 CAP Prov:BOBBY TORRES RESIDENT 03/24/25 Insulin Regular (Human) (Novolin R) 100 Unit/Ml Inj, 0 UNITS SC IQ4HR for 30 Days, #10 INJ Please use insulin Regular 3 times a day before meal. Follow below instruction. Please check glucose via glucometer 3 times a day. If blood glucose is between 150 and 200 please administer 2 units of regular insulin. If blood glucose is between 200-250 please administer 4 units of regular insulin. If blood sugar is between 250 and 300 please administer 8 units of regular insulin. If blood sugar between 300-350 please administered 10 units of regular insulin. If blood sugars between 350 and 400 please administer 12 units of regular insulin. If blood sugars greater than 400 please talk to /come to the hospital. Prov:BOBBY TORRES 03/24/25 Levothyroxine Sodium (Levothyroxine Sodium) 100 Mcg Tab, 200 MCG PO QAM@0600 for 30 Days, #30 TAB Prov:BOBBY TORRES 03/24/25 Insulin Glargine (Lantus) 100 Unit/Ml Inj, 10 UNITS SC HS for 30 Days, #30 INJ Prov:BOBBY TORRES 03/24/25 Furosemide (Furosemide) 40 Mg Tab, 40 MG PO DAILY for 30 Days, #30 TAB Prov:BOBBY TORRES 03/24/25 Atorvastatin Calcium (ATORVASTATIN CALCIUM) 20 Mg Tab, 10 MG PO HS for 30 Days, #15 TAB Prov:BOBBY TORRES 03/24/25 Aspirin (Aspirin Low Dose) 81 Mg Tab, 81 MG PO DAILY for 30 Days, #30 TAB Prov:BOBBY TORRES RESIDENT 03/24/25 Apixaban Base (ELIQUIS) 5 Mg Tab, 5 MG PO BID for 30 Days, #60 TAB Prov:BOBBY TORRES RESIDENT 03/24/25 Amiodarone HCl (Amiodarone HCl) 200 Mg Tab, 200 MG PO DAILY for 30 Days, #30 TAB Prov:BOBBY TORRES RESIDENT 03/24/25 Past Medical History Patient Family History: Asthma G8 MOTHER Review of Systems Constitutional: No symptom reported Pulmonary/Respiratory: Dyspnea Cardiovascular: No symptom reported H&P Exam Vital Signs Vital Signs Date Time Temp Pulse Resp B/P (MAP) Pulse Ox O2 Delivery O2 Flow Rate FiO2 06/06/25 14:58 75 20 132/67 06/06/25 13:00 97.1 95 97.1 06/06/25 08:00 Nasal Cannula* 2 28 General Appeara: Well developed Head Exam: Normal inspection Neck Exam: Normal inspection Nasal Exam: Normal inspection Pulmonary/Respiratory: Normal inspection SEPSIS Sepsis Screen Date sepsis recognized/suspect: Jun 04, 2025 Time Sepsis recognized/suspect: 1952 Recent Procedure: No On Antibiotic Therapy: No Respiratory Rate >20: No Heart Rate >90: No Temp<36 C (96.8 F) or >38.3 C: No SBP <90 or MAP <65 mmHG: No New Acute Mental Status Change: No Is the patient on CPAP, BIPAP,: No Vital Signs Date Time Temp Pulse Resp B/P (MAP) Pulse Ox O2 Delivery O2 Flow Rate FiO2 06/06/25 14:58 75 20 132/67 06/06/25 13:00 97.1 83 14 139/79 (99) 95 97.1 06/06/25 09:00 98.4 73 14 128/84 (99) 95 98.4 06/06/25 08:00 73 14 95 Nasal Cannula* 2 28 Labs/Xrays Labs Test 06/06/25 11:29 06/06/25 10:50 06/05/25 06:01 Range/Units POC Glucose 252 H 70-106 mg/dl Urine Color Light-yellow Yellow Urine Clarity Cloudy H Clear Urine pH 5.5 5.0-9.0 Urine Specific [place] 1.022 1.001-1.035 Urine Protein Trace H Negative Urine Ketones Negative Negative Urine Blood Negative Negative /uL Urine Nitrite Negative Negative Urine Bilirubin Negative Negative Urine Urobilinogen Normal Negative mg/dL Urine Leukocyte Esterase 3+ Negative /uL Urine RBC 7 0 - 4 /hpf Urine Microscopic WBC 268 H 0-5 /HPF Urine Squamous Epithelial Cells Few <5 /hpf Urine Bacteria Few H None Seen /hpf Urine Yeast (Budding) Many None Seen /hpf Urine Glucose 4+ H Normal mg/dL White Blood Count 9.6 4.4-10.8 10^3/uL Red Blood Count 4.93 4.0-5.20 10^6/uL Hemoglobin 14.3 12.2-16.2 g/dL Hematocrit 42.1 36.0-46.0 % Mean Corpuscular Volume 85.4 80.0-100.0 fL Mean Corpuscular Hemoglobin 28.9 28.0-32.0 pg Mean Corpuscular Hemoglobin Concent 33.9 32.0-36.0 g/dL Red Cell Distribution Width 15.1 H 11.8-14.3 % Platelet Count 259 140-450 10^3/uL Mean Platelet Volume 8.0 6.9-10.8 fL Neutrophils (%) (Auto) 72.4 37.0-80.0 % Lymphocytes (%) (Auto) 15.9 10.0-50.0 % Monocytes (%) (Auto) 8.5 0.0-12.0 % Eosinophils (%) (Auto) 2.1 0.0-7.0 % Basophils (%) (Auto) 1.1 0.0-2.0 % Neutrophils # (Auto) 6.9 1.6-8.6 10 ^3/uL Lymphocytes # (Auto) 1.5 0.4-5.4 10 ^3/uL Monocytes # (Auto) 0.8 0-1.3 10 ^3/uL Eosinophils # (Auto) 0.2 0-0.8 10 ^3/uL Basophils # (Auto) 0.1 0-0.2 10 ^3/uL Nucleated Red Blood Cells 0.0 % Sodium Level 135 #L 136-145 mmol/L Potassium Level 4.4 3.5-5.1 mmol/L Chloride Level 94 L 98-107 mmol/L Carbon Dioxide Level 32 H 20-31 mmol/L Anion Gap 9 5-15 Blood Urea Nitrogen 26 H 9-23 mg/dL Creatinine 1.25 H 0.550-1.02 mg/dL Glomerular Filtration Rate Calc 47 >90 mL/min BUN/Creatinine Ratio 20.8 H 10.0-20.0 Serum Glucose 275 H 74-106 mg/dL Calcium Level 9.9 8.7-10.4 mg/dL Total Bilirubin 0.4 0.2-1.0 mg/dL Aspartate Amino Transferase (AST) 19 13-40 U/L Alanine Aminotransferase (ALT) 61 H 7-40 U/L Alkaline Phosphatase 149 H 46-116 U/L Total Protein 7.8 5.7-8.2 g/dL Albumin 4.5 3.2-4.8 g/dL Microbiology Date/Time Source Procedure Growth Status 06/05/25 04:12 Nose MRSA Screen - Final Methicillin Resistant S.aureus Complete Assessment/Plan Primary Diagnosis DATE OF SERVICE IS 06/04/2025 69-year-old female BIBA with prior medical history of CVA, thyroid, diabetes, hypertension, hypotension, dementia, anxiety and a chief complaint of a fall. EMS report on picking the patient up from [facility] due from the patient falling off of her bed which is 3 ft high, and having right arm pain. There was no witnesses during the fall. Denies any other symptoms at this time. Denies chills, fever, N/V/D, SOB, CP. No other associated symptoms, modifiers, recent injuries or sick contacts present at this time. CVA hx hypothyroidism Dm type II HTN dementia anxiety fall, mechanical sepsis with UTI acute UTI DM with hyperosmolarity admitted to med/surg consult to endocrine if needed empirical iv abx Plan discussed with: Patient LEACHKELIN DO Jun 06, 2025 15:23
== END 2025-06-06 19:53 | disposition home or self-care (01) | DRG 871 ==
LOC: ER 15:20 → EDBD 15:20 → OVERFLOW 18:29 → CENTRAL 23:56
PROVIDERS: ADMIT Internal Medicine; ATTEND Internal Medicine
DX: A41.9 Sepsis, unspecified organism (principal); E11.00 Type 2 diabetes mellitus with hyperosmolarity without nonketotic hyperglycemic-hyperosmolar coma (NKHHC); F03.94 Unspecified dementia, unspecified severity, with anxiety; N39.0 Urinary tract infection, site not specified; I10 Essential (primary) hypertension; E03.9 Hypothyroidism, unspecified; R29.6 Repeated falls; J45.909 Unspecified asthma, uncomplicated; Z86.73 Personal history of transient ischemic attack (TIA), and cerebral infarction without residual deficits; Z79.4 Long term (current) use of insulin; Z79.899 Other long term (current) drug therapy; Z79.2 Long term (current) use of antibiotics
CPT/HCPCS: 36415; 72170; 73020; 80048; 80053; 81001; 82962; 85025; 87081; 96361; 96365; 96368; 99291; 99292; G0378; J1815; J2405; J3490

== ENCOUNTER 2025-07-29 17:56 | Inpatient (IN) | payer OTHER, MEDICARE ==
[~2025-07-29] VITALS: Ht 167.6 cm; Wt 111.4 kg
--- NOTE | 2025-07-29 18:18 | ED.PDOC ---
History of Present Illness HPI Comments 70 year-old female, with a Hx of CVA and Dementia, who presents to the ED via EMS for rash. [facility] to the groin, back, and extremities. Patient reports rash has been since worsening, with no alleviation via treatment and antibiotics. There are no further complaints or modifying factors at this time. REVIEW OF SYSTEMS: General: No fever, no chills, or fatigue HEENT: No sore throat, no earache, no congestion, no neck pain. Cardiac: No chest pain. No palpitations. Lungs: No shortness of breath, no cough. GI: No nausea, no vomiting, no diarrhea, no constipation, no abdominal pain : No dysuria, frequency, or urgency. No hematuria. Musculoskeletal: No joint pain , no joint swelling, no extremity edema. Skin: (+) rash Neuro: No headache, no dizziness, no weakness (And as sated in HPI) PHYSICAL EXAM: General: Awake, alert and oriented. No acute distress. Skin: extensive erythematous; rash to groin and axilla. non-blanching HEENT: The head is normocephalic and atraumatic. Conjunctivae are clear without exudates or hemorrhage. Sclera is non-icteric. Eyelids are normal in appearance without swelling or lesions. Oral mucosa is pink and moist Neck: The neck is supple with normal range of motion. No JVD. Cardiac: Heart rate and rhythm are normal. No murmurs, gallops, or rubs are auscultated. Respiratory: No signs of respiratory distress. Lung sounds are clear in all lobes bilaterally without rales, rhonchi, or wheezes. Abdominal: Abdomen is soft, non-tender without distention, guarding or rigidity. Bowel sounds are present and normoactive in all four quadrants. Extremities: Lower extremities without edema. Neurological: The patient is awake, confused. Speech is clear. There is no facial asymmetry. Chief Complaint: Rash Time Seen by MD: 18:23 Reviewed Notes: Medications, Allergies Allergies: Coded Allergies: NO KNOWN ALLERGIES (Unverified , 02/11/25) Home Meds Active Scripts Cephalexin (KEFLEX CAPSULE) 250 Mg Cp, 1 CAP PO QID for 5 Days, #40 CAP Prov:BOBBY TORRES RESIDENT 03/24/25 Insulin Regular (Human) (Novolin R) 100 Unit/Ml Inj, 0 UNITS SC IQ4HR for 30 Days, #10 INJ Please use insulin Regular 3 times a day before meal. Follow below instruction. Please check glucose via glucometer 3 times a day. If blood glucose is between 150 and 200 please administer 2 units of regular insulin. If blood glucose is between 200-250 please administer 4 units of regular insulin. If blood sugar is between 250 and 300 please administer 8 units of regular insulin. If blood sugar between 300-350 please administered 10 units of regular insulin. If blood sugars between 350 and 400 please administer 12 units of regular insulin. If blood sugars greater than 400 please talk to /come to the hospital. Prov:BOBBY TORRES 03/24/25 Levothyroxine Sodium (Levothyroxine Sodium) 100 Mcg Tab, 200 MCG PO QAM@0600 for 30 Days, #30 TAB Prov:BOBBY TORRES 03/24/25 Insulin Glargine (Lantus) 100 Unit/Ml Inj, 10 UNITS SC HS for 30 Days, #30 INJ Prov:BOBBY TORRES 03/24/25 Furosemide (Furosemide) 40 Mg Tab, 40 MG PO DAILY for 30 Days, #30 TAB Prov:BOBBY TORRES 03/24/25 Atorvastatin Calcium (ATORVASTATIN CALCIUM) 20 Mg Tab, 10 MG PO HS for 30 Days, #15 TAB Prov:BOBBY TORRES 03/24/25 Aspirin (Aspirin Low Dose) 81 Mg Tab, 81 MG PO DAILY for 30 Days, #30 TAB Prov:BOBBY TORRES 03/24/25 Apixaban Base (ELIQUIS) 5 Mg Tab, 5 MG PO BID for 30 Days, #60 TAB Prov:BOBBY TORRES 03/24/25 Amiodarone HCl (Amiodarone HCl) 200 Mg Tab, 200 MG PO DAILY for 30 Days, #30 TAB Prov:BOBBY TORRES 03/24/25 Information Source: Patient Mode of Arrival: EMS Severity: Moderate Timing: Months Duration: Since onset Past Medical History PAST MEDICAL HISTORY: Anxiety, Asthma, CVA, Dementia, DM, HTN, Hypotension, Thyroid Surgical History: Denies all surgeries 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 Was a procedure done?: No Differential Dx Considerations may include: Cellulitis, viral syndrome, thyroid storm, myxedema coma , DKA, HHS, hypoglycemia, anemia, GI bleeding, renal failure, dehydration, hepatic failure, electrolyte imbalance, carbon monoxide poisoning, malignancy, UTI, other. X-Ray, Labs, Meds, VS Vital Signs Date Time Temp Pulse Resp B/P (MAP) Pulse Ox O2 Delivery O2 Flow Rate FiO2 07/29/25 18:03 98.9 115 20 144/85 95 98.9 Lab Test 07/29/25 21:45 07/29/25 19:48 Range/Units Lactic Acid Level 1.4 2.4 *H 0.4-2.0 mmol/L White Blood Count 7.3 4.4-10.8 10^3/uL Red Blood Count 4.19 4.0-5.20 10^6/uL Hemoglobin 12.2 12.2-16.2 g/dL Hematocrit 36.9 36.0-46.0 % Mean Corpuscular Volume 88.1 80.0-100.0 fL Mean Corpuscular Hemoglobin 29.0 28.0-32.0 pg Mean Corpuscular Hemoglobin Concent 33.0 32.0-36.0 g/dL Red Cell Distribution Width 14.2 11.8-14.3 % Platelet Count 396 140-450 10^3/uL Mean Platelet Volume 7.0 6.9-10.8 fL Neutrophils (%) (Auto) 80.6 H 37.0-80.0 % Lymphocytes (%) (Auto) 7.2 L 10.0-50.0 % Monocytes (%) (Auto) 8.7 0.0-12.0 % Eosinophils (%) (Auto) 3.0 0.0-7.0 % Basophils (%) (Auto) 0.5 0.0-2.0 % Neutrophils # (Auto) 5.9 1.6-8.6 10 ^3/uL Lymphocytes # (Auto) 0.5 0.4-5.4 10 ^3/uL Monocytes # (Auto) 0.6 0-1.3 10 ^3/uL Eosinophils # (Auto) 0.2 0-0.8 10 ^3/uL Basophils # (Auto) 0 0-0.2 10 ^3/uL Nucleated Red Blood Cells 0.0 % Sodium Level 138 136-145 mmol/L Potassium Level 4.3 3.5-5.1 mmol/L Chloride Level 103 98-107 mmol/L Carbon Dioxide Level 27 20-31 mmol/L Anion Gap 8 5-15 Blood Urea Nitrogen 13 9-23 mg/dL Creatinine 0.90 0.550-1.02 mg/dL Glomerular Filtration Rate Calc 70 >90 mL/min BUN/Creatinine Ratio 14.4 10.0-20.0 Serum Glucose 470 *H 74-106 mg/dL Calcium Level 8.6 L 8.7-10.4 mg/dL Total Bilirubin < 0.2 L 0.2-1.0 mg/dL Aspartate Amino Transferase (AST) 13 13-40 U/L Alanine Aminotransferase (ALT) 10 7-40 U/L Alkaline Phosphatase 136 H 46-116 U/L Total Protein 6.0 5.7-8.2 g/dL Albumin 3.1 L 3.2-4.8 g/dL Current Medications Medications (Trade) Dose Ordered Sig/Lindsey Route Start Time Stop Time Status Last Admin Sodium Chloride 1,000 ml @ 1,000 mls/hr Q1H ONCE IV 07/29/25 18:30 07/29/25 19:35 DC 07/29/25 22:46 Ceftriaxone Sodium 50 ml @ 100 mls/hr ONCE ONCE IV 07/29/25 18:30 07/29/25 18:59 DC 07/29/25 22:47 Vancomycin HCl 250 ml @ 250 mls/hr ONCE ONCE IV 07/29/25 18:30 07/29/25 19:35 DC 07/29/25 22:47 Time of 1ST Reevaluation: 18:18 Reevaluation 1ST: Unchanged Patient Education/Counseling: Need For Follow Up Family Education/Counseling: No Family Present SEPSIS Sepsis Screen Physician Orders Sodium Chloride 0.9% (07/29/25 18:30) Vital Signs Q1HR (07/29/25 18:22) Saline Lock (07/29/25 18:22) Returning Officer (07/29/25 ) Rectal/Core Temps Only (07/29/25 18:22) Notify Md If Abnormal Vs (07/29/25 18:22) Blood Culture (07/29/25 18:22) Chest Xray 1 View (07/29/25 18:22) Urinalysis (07/29/25 18:22) Vital Signs Date Time Temp Pulse Resp B/P (MAP) Pulse Ox O2 Delivery O2 Flow Rate FiO2 07/29/25 18:03 98.9 115 20 144/85 95 98.9 Laboratory Tests Test 07/29/25 19:48 07/29/25 21:45 Lactic Acid Level 2.4 mmol/L (0.4-2.0) *H 1.4 mmol/L (0.4-2.0) White Blood Count 7.3 10^3/uL (4.4-10.8) Medications Medications Dose Ordered Sig/Lindsey Route Start Time Stop Time Status Last Admin Dose Admin Ceftriaxone Sodium 50 ml @ 100 mls/hr ONCE ONCE IV 07/29/25 18:30 07/29/25 18:59 DC 07/29/25 22:47 Sodium Chloride 1,000 ml @ 1,000 mls/hr Q1H ONCE IV 07/29/25 18:30 07/29/25 19:35 DC 07/29/25 22:46 Vancomycin HCl 250 ml @ 250 mls/hr ONCE ONCE IV 07/29/25 18:30 07/29/25 19:35 DC 07/29/25 22:47 Departure 1 Departure Time of Disposition: 20:33 Impression: Primary Impression: Tinea cruris Additional Impressions: Cellulitis Hyperglycemia without ketosis Sepsis Disposition: 09 ADMITTED INPATIENT Condition: Stable Comments 70-year-old female with a extensive cellulitis secondary to likely tinea cruris Antibiotics, antifungal and IV fluids initiated in the ED Patient admitted to hospitalist service for further treatment, evaluation and monitoring. Critical Care Note Critical Care Time?: No Stability Stability form required: No Heart Score Heart Score: Heart Score Response (Comments) Value History N/A 0 EKG N/A 0 Age N/A 0 Risk Factors N/A 0 Troponin N/A 0 Total 0 I personally scribed for DEBBIE HELTON MD ([email or web address]) on 07/29/25 at 18:18. Electronically submitted by Janeth Gipson ([employer]). I personally scribed for DEBBIE HELTON MD ([email or web address]) on 07/29/25 at 18:48. Electronically submitted by Janeth Gipson ([email or web address]). I personally scribed for DEBBIE HELTON MD ([email or web address]) on 07/29/25 at 19:47. Electronically submitted by Janeth Gipson ([email or web address]). DEBBIE HELTON MD Jul 29, 2025 18:18
[2025-07-29 20:18] LABS: Hematocrit 36.9 % (36.0-46.0); Hemoglobin 12.2 g/dL (12.2-16.2); Mean Corpuscular Hemoglobin 29.0 pg (28.0-32.0); Mean Corpuscular Volume 88.1 fL (80.0-100.0); Nucleated Red Blood Cells % 0.0 %
[2025-07-29 20:43] LABS: Alanine Aminotransferase 10 U/L (7-40); Anion Gap 8 (5-15); BUN/Creatinine Ratio 14.4 (10.0-20.0); Blood Urea Nitrogen 13 mg/dL (9-23); Carbon Dioxide 27 mmol/L (20-31); Chloride 103 mmol/L (98-107); Potassium 4.3 mmol/L (3.5-5.1); Sodium 138 mmol/L (136-145); Total Protein 6.0 g/dL (5.7-8.2)
[2025-07-29 20:48] LABS: Albumin 3.1 g/dL (3.2-4.8); Alkaline Phosphatase 136 U/L (46-116); Bilirubin, Total < 0.2 mg/dL (0.2-1.0); Calcium 8.6 mg/dL (8.7-10.4)
[2025-07-29 20:49] LABS: Glucose 470 mg/dL (74-106); Lactic Acid w/Reflex 2.4 mmol/L (0.4-2.0)
--- NOTE | 2025-07-29 21:23 | DVH ---
CLINICAL HISTORY: Suspected Sepsis TECHNIQUE: Single view of the chest was obtained. COMPARISON: XY CHEST PORTABLE on DOS: 03/22/25, XY CHEST PORTABLE on DOS: 03/20/25, CT CT ANGIO CHEST CONTRAST on DOS: 02/12/25, XY CHEST XRAY 1 VIEW on DOS: 02/11/25 FINDINGS: The heart size is enlarged with pulmonary vascular congestion. There is a chronic left upper lung opacity. IMPRESSION: Pulmonary vascular congestion. Chronic left upper lung opacity, which could represent scarring.
[2025-07-29] MEDS ORDERED: DOCUSATE SOD 100 MG CAP PO PRN (22:15)
[2025-07-29] MEDS ORDERED: ONDANSETRON HCL 4 MG/2 ML VIAL IV PRN (22:15)
[2025-07-29] MEDS ORDERED: NITROGLYCERIN 0.4 MG SL TAB SL PRN (22:15)
[2025-07-29] MEDS: SODIUM CHLORIDE 0.9% 1,000 ML IV ONE (22:46)
[2025-07-29] MEDS: VANCOMYCIN 1GM/250ML KIT 250 ML IV ONE (22:47)
--- NOTE | 2025-07-29 22:54 | DVHHP2 ---
History of Present Illness HPI 70 year-old female, with a Hx of CVA and Dementia, who presents to the ED via EMS for rash. [facility]1 month to the groin, back, and extremities. Patient reports rash has been since worsening, with no alleviation via treatment and antibiotics. There are no further compla ints or modifying factors at this time. Home Meds Active Scripts Insulin Glargine (Lantus Solostar) 100 Unit/Ml Inj, 100 UNIT SC BID for 30 Days, #30 INJ inject SubQ 15 units BID Prov:KELIN LEACH DO 08/06/25 Cephalexin (KEFLEX CAPSULE) 250 Mg Cp, 1 CAP PO QID for 5 Days, #40 CAP Prov:BOBBY TORRES RESIDENT 03/24/25 Insulin Regular (Human) (Novolin R) 100 Unit/Ml Inj, 0 UNITS SC IQ4HR for 30 Days, #10 INJ Please use insulin Regular 3 times a day before meal. Follow below instruction. Please check glucose via glucometer 3 times a day. If blood glucose is between 150 and 200 please administer 2 units of regular insulin. If blood glucose is between 200-250 please administer 4 units of regular insulin. If blood sugar is between 250 and 300 please administer 8 units of regular insulin. If blood sugar between 300-350 please administered 10 units of regular insulin. If blood sugars between 350 and 400 please administer 12 units of regular insulin. If blood sugars greater than 400 please talk to /come to the hospital. Prov:BOBBY TORRES 03/24/25 Levothyroxine Sodium (Levothyroxine Sodium) 100 Mcg Tab, 200 MCG PO QAM@0600 for 30 Days, #30 TAB Prov:BOBBY TORRES 03/24/25 Insulin Glargine (Lantus) 100 Unit/Ml Inj, 10 UNITS SC HS for 30 Days, #30 INJ Prov:BOBBY TORRES 03/24/25 Furosemide (Furosemide) 40 Mg Tab, 40 MG PO DAILY for 30 Days, #30 TAB Prov:BOBBY TORRES 03/24/25 Atorvastatin Calcium (ATORVASTATIN CALCIUM) 20 Mg Tab, 10 MG PO HS for 30 Days, #15 TAB Prov:BOBBY TORRES 03/24/25 Aspirin (Aspirin Low Dose) 81 Mg Tab, 81 MG PO DAILY for 30 Days, #30 TAB Prov:BONIFACIO TORRESEN RESIDENT 03/24/25 Apixaban Base (ELIQUIS) 5 Mg Tab, 5 MG PO BID for 30 Days, #60 TAB Prov:MELISSABOBBY RESIDENT 03/24/25 Amiodarone HCl (Amiodarone HCl) 200 Mg Tab, 200 MG PO DAILY for 30 Days, #30 TAB Prov:TONAMARTINMGAYBOBBY RESIDENT 03/24/25 Past Medical History Patient Family History: Asthma G8 MOTHER Review of Systems Constitutional: No symptom reported Ears, Nose, & Throat: No symptom reported Eyes: No symptom reported Pulmonary/Respiratory: No symptom reported Cardiovascular: No symptom reported Gastrointestinal: No symptom reported H&P Exam Vital Signs Vital Signs Date Time Temp Pulse Resp B/P (MAP) Pulse Ox O2 Delivery O2 Flow Rate FiO2 07/29/25 18:03 98.9 115 20 144/85 95 98.9 General Appeara: Well developed, Well nourished Pulmonary/Respiratory: Normal inspection Cardiovascular/Chest: Normal inspection SEPSIS Sepsis Screen Date sepsis recognized/suspect: Jul 29, 2025 Time Sepsis recognized/suspect: 1802 Recent Procedure: No On Antibiotic Therapy: No Respiratory Rate >20: No Heart Rate >90: Yes Temp<36 C (96.8 F) or >38.3 C: No SBP <90 or MAP <65 mmHG: No New Acute Mental Status Change: No Is the patient on CPAP, BIPAP,: No Physician Orders Sodium Chloride 0.9% (07/29/25 18:30) Vital Signs Q1HR (07/29/25 18:22) Saline Lock (07/29/25 18:22) Mail Censor (07/29/25 ) Rectal/Core Temps Only (07/29/25 18:22) Notify Md If Abnormal Vs (07/29/25 18:22) Blood Culture (07/29/25 18:22) Chest Xray 1 View (07/29/25 18:22) Urinalysis (07/29/25 18:22) Admit (07/29/25 22:07) Code Status (07/29/25 22:07) Hydrocodone-Acet 5/325mg Tab ([place] 5/32 (07/29/25 22:15) Ondansetron Hcl (Zofran) (07/29/25 22:15) Docusate Sodium Capsule (Colace Capsule) (07/29/25 22:15) Complete Blood Count (07/30/25 04:00) Comprehensive Metabolic Panel (07/30/25 04:00) Condition: Serious (07/29/25 22:07) Acetaminophen Tablet (Tylenol Tablet) (07/29/25 22:15) Morphine Sulfate Injection (07/29/25 22:15) Nitroglycerin Sublingual (Ntrostat Subli (07/29/25 22:15) Morphine Sulfate Injection (07/29/25 22:15) Stat Ekg For Chest Pain (07/29/25 22:07) Notify Of Changes From Base (07/29/25:) Director Export For 24 Hours (07/29/25 22:07) Emergency Dysrhythmia Protocol (07/29/25:07) Rhythm Strips Once Every Shift (07/29/25 22:07) Oxygen By Nasal Cannula (07/29/25:) Vital Signs Date Time Temp Pulse Resp B/P (MAP) Pulse Ox O2 Delivery O2 Flow Rate FiO2 07/29/25 18:03 98.9 115 20 144/85 95 98.9 Laboratory Tests Test 07/29/25 19:48 07/29/25 21:45 Lactic Acid Level 2.4 mmol/L (0.4-2.0) *H 1.4 mmol/L (0.4-2.0) White Blood Count 7.3 10^3/uL (4.4-10.8) Medications Medications Dose Ordered Sig/Lindsey Route Start Time Stop Time Status Last Admin Dose Admin Ceftriaxone Sodium 50 ml @ 100 mls/hr ONCE ONCE IV 07/29/25 18:30 07/29/25 18:59 DC 07/29/25 22:47 100 MLS/HR Sodium Chloride 1,000 ml @ 1,000 mls/hr Q1H ONCE IV 07/29/25 18:30 07/29/25 19:35 DC 07/29/25 22:46 1,000 MLS/HR Vancomycin HCl 250 ml @ 250 mls/hr ONCE ONCE IV 07/29/25 18:30 07/29/25 19:35 DC 07/29/25 22:47 250 MLS/HR Labs/Xrays Labs Test 07/29/25 21:45 07/29/25 19:48 Range/Units Lactic Acid Level 1.4 0.4-2.0 mmol/L White Blood Count 7.3 4.4-10.8 10^3/uL Red Blood Count 4.19 4.0-5.20 10^6/uL Hemoglobin 12.2 12.2-16.2 g/dL Hematocrit 36.9 36.0-46.0 % Mean Corpuscular Volume 88.1 80.0-100.0 fL Mean Corpuscular Hemoglobin 29.0 28.0-32.0 pg Mean Corpuscular Hemoglobin Concent 33.0 32.0-36.0 g/dL Red Cell Distribution Width 14.2 11.8-14.3 % Platelet Count 396 140-450 10^3/uL Mean Platelet Volume 7.0 6.9-10.8 fL Neutrophils (%) (Auto) 80.6 H 37.0-80.0 % Lymphocytes (%) (Auto) 7.2 L 10.0-50.0 % Monocytes (%) (Auto) 8.7 0.0-12.0 % Eosinophils (%) (Auto) 3.0 0.0-7.0 % Basophils (%) (Auto) 0.5 0.0-2.0 % Neutrophils # (Auto) 5.9 1.6-8.6 10 ^3/uL Lymphocytes # (Auto) 0.5 0.4-5.4 10 ^3/uL Monocytes # (Auto) 0.6 0-1.3 10 ^3/uL Eosinophils # (Auto) 0.2 0-0.8 10 ^3/uL Basophils # (Auto) 0 0-0.2 10 ^3/uL Nucleated Red Blood Cells 0.0 % Sodium Level 138 136-145 mmol/L Potassium Level 4.3 3.5-5.1 mmol/L Chloride Level 103 98-107 mmol/L Carbon Dioxide Level 27 20-31 mmol/L Anion Gap 8 5-15 Blood Urea Nitrogen 13 9-23 mg/dL Creatinine 0.90 0.550-1.02 mg/dL Glomerular Filtration Rate Calc 70 >90 mL/min BUN/Creatinine Ratio 14.4 10.0-20.0 Serum Glucose 470 *H 74-106 mg/dL Calcium Level 8.6 L 8.7-10.4 mg/dL Total Bilirubin < 0.2 L 0.2-1.0 mg/dL Aspartate Amino Transferase (AST) 13 13-40 U/L Alanine Aminotransferase (ALT) 10 7-40 U/L Alkaline Phosphatase 136 H 46-116 U/L Total Protein 6.0 5.7-8.2 g/dL Albumin 3.1 L 3.2-4.8 g/dL Assessment/Plan Primary Diagnosis 70 year-old female, with a Hx of CVA and Dementia, who presents to the ED via EMS for rash. Patient is coming from [facility] care facility for rash X1 month to the groin, back, and extremities. Patient reports rash has been since worsening, with no alleviation via treatment and antibiotics. There are no further complaints or modifying factors at this time. cellulitis, severe itchiness sepsis with cellulitis DM type II with hyperglycemia dehydration acute metabolic encephalopathy chronic anemia obesity admitted and placed on empirical IV abx benadryl started on Lantus & sliding scale Plan discussed with: Patient KELIN LEACH DO Jul 29, 2025 22:54
[2025-07-29 23:00] VITALS: PULSE 98; RESP 14; O2SAT 95
[2025-07-29] MEDS ORDERED: MORPHINE SULFATE 4 MG/ML SYR/VIAL IV PRN (23:15)
[2025-07-30] MEDS: SODIUM CHLORIDE 0.9% 1,000 ML IV ONE ×2 (02:47→04:49)
[2025-07-30] MEDS: diphenhydrAMINE HCL 50 MG/1 ML VL IV PRN (05:42)
[2025-07-30] MEDS: PIPERACILLIN-TAZOB 3.375GM 100 ML IV SCH (05:47)
[2025-07-30 06:19] LABS: Hematocrit 30.2 % (36.0-46.0); Hemoglobin 9.8 g/dL (12.2-16.2); Mean Corpuscular Hemoglobin 28.3 pg (28.0-32.0); Mean Corpuscular Volume 86.9 fL (80.0-100.0); Nucleated Red Blood Cells % 0.2 %
[2025-07-30 06:56] LABS: Alkaline Phosphatase 105 U/L (46-116); Anion Gap 8 (5-15); BUN/Creatinine Ratio 16.9 (10.0-20.0); Blood Urea Nitrogen 11 mg/dL (9-23); Carbon Dioxide 25 mmol/L (20-31); Chloride 103 mmol/L (98-107); Potassium 3.7 mmol/L (3.5-5.1); Sodium 136 mmol/L (136-145)
[2025-07-30 07:03] LABS: Alanine Aminotransferase < 9 U/L (7-40); Albumin 2.6 g/dL (3.2-4.8); Bilirubin, Total 0.2 mg/dL (0.2-1.0); Calcium 7.4 mg/dL (8.7-10.4); Glucose 387 mg/dL (74-106); Total Protein 5.0 g/dL (5.7-8.2)
[2025-07-30 07:11] LABS: Urine Budding Yeast MANY /hpf (None Seen); Urine Protein, UAD TRACE (Negative); Urine WBC Clumps PRESENT /hpf (None Seen)
[2025-07-30] MEDS: INSULIN LANTUS (GLARGINE) 1 /0.01ml (100units/ml) SC SCH (07:17)
[2025-07-30 08:00] VITALS: PULSE 88; RESP 19; O2SAT 98
[2025-07-30 17:02] VITALS: BP 140/67; PULSE 75; RESP 16; TEMP 98.4; O2SAT 90
[2025-07-30 17:45] VITALS: BP 148/72; PULSE 75; RESP 18; TEMP 97.4; O2SAT 95
[2025-07-30 18:25] VITALS: BP 132/65; PULSE 77; RESP 17; TEMP 99.4; O2SAT 96
[2025-07-30 20:10] VITALS: PULSE 73; RESP 17
[2025-07-30 21:00] VITALS: BP 124/61; PULSE 73; RESP 17; TEMP 99.1; O2SAT 96
[2025-07-31] VITALS (8 sets, daily range): BP systolic 117–145; BP diastolic 46–92; PULSE 50–84; RESP 16–19; TEMP 97–99.1; O2SAT 94–100
[2025-07-31] MEDS: MORPHINE SULFATE 4 MG/ML SYR/VIAL IV PRN (21:22)
[2025-08-01 01:00] VITALS: BP 132/67; PULSE 80; RESP 17; TEMP 97.9; O2SAT 98
[2025-08-01 05:00] VITALS: BP 127/69; PULSE 74; RESP 17; TEMP 96.5; O2SAT 99
[2025-08-01 09:00] VITALS: BP 131/88; PULSE 73; RESP 16; TEMP 98.4; O2SAT 99
--- NOTE | 2025-08-01 12:10 | DVHPN2 ---
Progress Note Date Seen: Jul 30, 2025 Medical Necessity Reason Pt with a Central, PICC or Fol: No Objective vital signs Vital Sign Date Time Temp Pulse Resp B/P (MAP) Pulse Ox O2 Delivery O2 Flow Rate FiO2 08/01/25 09:00 98.4 73 16 131/88 (102) 99 98.4 08/01/25 08:00 Nasal Cannula* 2 28 Total Intake and Output 07/31/25 07/31/25 08/01/25 15:00 23:00 07:00 Intake Total 100 ml 460 ml 420 ml Output Total 1600 ml 1000 ml Balance 100 ml -1140 ml -580 ml medications Current Medications Medications Dose Ordered Sig/Lindsey Route Start Time Stop Time Status Last Admin Dose Admin Acetaminophen/ Hydrocodone Bitart 1 tab Q4HP PRN PO 07/29/25 22:15 Ondansetron HCl 4 mg Q4HP PRN IV 07/29/25 22:15 Docusate Sodium 100 mg BIDPRN PRN PO 07/29/25 22:15 Acetaminophen 650 mg Q6HP PRN PO 07/29/25 22:15 Morphine Sulfate 2 mg Q4HPRN PRN IV 07/29/25 23:15 07/31/25 21:22 2 MG Nitroglycerin 0.4 mg Q5MINP PRN SL 07/29/25 22:15 Morphine Sulfate 2 mg Q30M PRN IV 07/29/25 23:15 Piperacillin Sod/ Tazobactam Sod 100 ml @ 100 mls/hr TID IV 07/30/25 06:00 08/01/25 06:21 100 MLS/HR Diphenhydramine HCl 50 mg QHSP PRN IV 07/30/25 01:15 07/30/25 05:42 50 MG Insulin Glargine 10 units BID@0700,2200 SC 07/30/25 07:00 08/01/25 06:18 10 UNITS Examination: GENERAL:Normal laboratory and microbiology Laboratory Tests 07/30/25 05:25 Test 07/30/25 05:25 Range/Units Serum Glucose 387 H 74-106 mg/dL Microbiology Date/Time Source Procedure Growth Status 07/30/25 17:52 Nose MRSA Screen - Final Methicillin Resistant S.aureus Complete 07/30/25 06:20 Urine - Catheterized Urine Culture - Preliminary Resulted 12/22/25 19:48 Blood Blood Culture - Preliminary NO GROWTH AFTER 48 HOURS OF INCUBATION. Resulted Labs and/or images reviewed: Labs reviewed by me, Image(s) reviewed by me Problem List/Assessment/Plan Problem List/Assessment/Plan 70 year-old female, with a Hx of CVA and Dementia, who presents to the ED via EMS for rash. Patient is coming from [facility] care facility for rash X1 month to the groin, back, and extremities. Patient reports rash has been since worsening, with no alleviation via treatment and antibiotics. There are no further complaints or modifying factors at this time. cellulitis, severe itchiness sepsis with cellulitis DM type II with hyperglycemia dehydration acute metabolic encephalopathy chronic anemia obesity admitted and placed on empirical IV abx benadryl started on Lantus & sliding scale Plan discussed with: Patient HANYKELIN Bolton DO Aug 01, 2025 12:10
--- NOTE | 2025-08-01 12:11 | DVHPN2 ---
Progress Note Date Seen: Aug 01, 2025 Medical Necessity Reason Pt with a Central, PICC or Fol: No Objective vital signs Vital Sign Date Time Temp Pulse Resp B/P (MAP) Pulse Ox O2 Delivery O2 Flow Rate FiO2 08/01/25 09:00 98.4 73 16 131/88 (102) 99 98.4 08/01/25 08:00 Nasal Cannula* 2 28 Total Intake and Output 07/31/25 07/31/25 08/01/25 15:00 23:00 07:00 Intake Total 100 ml 460 ml 420 ml Output Total 1600 ml 1000 ml Balance 100 ml -1140 ml -580 ml medications Current Medications Medications Dose Ordered Sig/Lindsey Route Start Time Stop Time Status Last Admin Dose Admin Acetaminophen/ Hydrocodone Bitart 1 tab Q4HP PRN PO 07/29/25 22:15 Ondansetron HCl 4 mg Q4HP PRN IV 07/29/25 22:15 Docusate Sodium 100 mg BIDPRN PRN PO 07/29/25 22:15 Acetaminophen 650 mg Q6HP PRN PO 07/29/25 22:15 Morphine Sulfate 2 mg Q4HPRN PRN IV 07/29/25 23:15 07/31/25 21:22 2 MG Nitroglycerin 0.4 mg Q5MINP PRN SL 07/29/25 22:15 Morphine Sulfate 2 mg Q30M PRN IV 07/29/25 23:15 Piperacillin Sod/ Tazobactam Sod 100 ml @ 100 mls/hr TID IV 07/30/25 06:00 08/01/25 06:21 100 MLS/HR Diphenhydramine HCl 50 mg QHSP PRN IV 07/30/25 01:15 07/30/25 05:42 50 MG Insulin Glargine 10 units BID@0700,2200 SC 07/30/25 07:00 08/01/25 06:18 10 UNITS laboratory and microbiology Laboratory Tests 07/30/25 05:25 Test 07/30/25 05:25 Range/Units Serum Glucose 387 H 74-106 mg/dL Microbiology Date/Time Source Procedure Growth Status 07/30/25 17:52 Nose MRSA Screen - Final Methicillin Resistant S.aureus Complete 07/30/25 06:20 Urine - Catheterized Urine Culture - Preliminary Resulted 07/29/25 19:48 Blood Blood Culture - Preliminary NO GROWTH AFTER 48 HOURS OF INCUBATION. Resulted Labs and/or images reviewed: Labs reviewed by me, Image(s) reviewed by me Problem List/Assessment/Plan Problem List/Assessment/Plan 70 year-old female, with a Hx of CVA and Dementia, who presents to the ED via EMS for rash. Patient is coming from [facility] care facility for rash X1 month to the groin, back, and extremities. Patient reports rash has been since worsening, with no alleviation via treatment and antibiotics. There are no further complaints or modifying factors at this time. cellulitis, severe itchiness sepsis with cellulitis DM type II with hyperglycemia dehydration acute metabolic encephalopathy chronic anemia obesity admitted and placed on empirical IV abx benadryl started on Lantus & sliding scale Plan discussed with: Patient LEACH,KELIN Bolton DO Aug 01, 2025 12:11
[2025-08-01 12:49] VITALS: BP 131/79; PULSE 63; RESP 15; TEMP 98.8; O2SAT 100
[2025-08-01 17:00] VITALS: BP 124/70; PULSE 67; RESP 18; TEMP 98.7; O2SAT 96
[2025-08-01 20:00] VITALS: RESP 18
[2025-08-01] MEDS: INSULIN LANTUS (GLARGINE) 1 /0.01ml (100units/ml) SC SCH (22:00)
[2025-08-02 01:00] VITALS: BP 98/59; PULSE 81; RESP 19; TEMP 97.2; O2SAT 99
[2025-08-02 05:00] VITALS: BP 140/76; PULSE 77; RESP 19; TEMP 96.4; O2SAT 98
[2025-08-02] MEDS: HYDROcodone-ACET 5/325MG TAB PO PRN (06:02)
[2025-08-02 08:42] VITALS: BP 117/56; PULSE 81; RESP 18; TEMP 97.4; O2SAT 99
[2025-08-02 13:21] VITALS: BP 145/75; PULSE 70; RESP 18; TEMP 98.3; O2SAT 99
[2025-08-02 17:12] VITALS: BP 142/68; PULSE 65; RESP 20; TEMP 97.6; O2SAT 99
[2025-08-02 21:02] VITALS: BP 120/68; PULSE 71; RESP 18; TEMP 98.9; O2SAT 97
[2025-08-03] VITALS (7 sets, daily range): BP systolic 103–137; BP diastolic 46–83; PULSE 72–105; RESP 16–18; TEMP 97.8–99.7; O2SAT 95–99
[2025-08-03] MEDS: ACETAMINOPHEN 325 MG TAB PO PRN (15:59)
[2025-08-04 01:00] VITALS: BP 153/71; PULSE 90; RESP 18; TEMP 98.8; O2SAT 97
[2025-08-04 05:00] VITALS: BP 138/80; PULSE 77; RESP 18; TEMP 98.8; O2SAT 99
[2025-08-04 08:10] VITALS: PULSE 77; RESP 18; O2SAT 99
[2025-08-04 09:00] VITALS: BP 138/70; PULSE 77; RESP 20; TEMP 97.5; O2SAT 99
[2025-08-04 13:00] VITALS: BP 148/93; PULSE 73; RESP 20; TEMP 97.3; O2SAT 98
[2025-08-04 16:30] VITALS: BP 126/62; PULSE 68; RESP 21; TEMP 97.5; O2SAT 98
[2025-08-05 04:58] VITALS: BP 140/70; PULSE 81; RESP 18; TEMP 98.2; O2SAT 94
[2025-08-05 08:10] VITALS: PULSE 69; RESP 18; O2SAT 98
[2025-08-05 09:00] VITALS: BP 146/81; PULSE 69; RESP 19; TEMP 97.8; O2SAT 98
[2025-08-05 12:19] VITALS: BP 139/76; PULSE 76; RESP 17; TEMP 98.3; O2SAT 97
[2025-08-05 16:51] VITALS: BP 139/86; PULSE 80; RESP 17; TEMP 98; O2SAT 96
[2025-08-05 21:00] VITALS: BP 122/57; PULSE 72; RESP 20; TEMP 97.4; O2SAT 100
[2025-08-06] VITALS (7 sets, daily range): BP systolic 116–151; BP diastolic 55–84; PULSE 63–90; RESP 18–20; TEMP 97.3–98.4; O2SAT 97–100
[2025-08-06] MEDS ORDERED: INSUINJ37 SC (10:24)
--- NOTE | 2025-08-06 10:29 | DVHDS2 ---
Discharge Summary Date of Admission Jul 29, 2025 at 22:07 Date of Discharge: Aug 06, 2025 Labs/Diagnostic Data: Laboratory Results Test 08/06/25 06:11 07/30/25 06:20 07/30/25 05:25 07/29/25 21:45 POC Glucose 171 mg/dl (70-106) Urine Color Colorless (Yellow) Urine Clarity Ex.turbid (Clear) Urine pH 5.5 (5.0-9.0) Urine Specific [place] 1.027 (1.001-1.035) Urine Protein Trace (Negative) Urine Ketones 1+ (Negative) Urine Blood Negative /uL (Negative) Urine Nitrite 1+ (Negative) Urine Bilirubin Negative (Negative) Urine Urobilinogen Normal mg/dL (Negative) Urine Leukocyte Esterase 3+ /uL (Negative) Urine RBC 98 /hpf (0 - 4) Urine WBC Clumps Present /hpf (None Seen) Urine Microscopic WBC 173 /HPF (0-5) Urine Squamous Epithelial Cells None seen /hpf (<5) Urine Uric Acid Crystals Mod /hpf (None Seen) Urine Bacteria None seen /hpf (None Seen) Urine Mucus Few (None Seen) Urine Yeast (Budding) Many /hpf (None Seen) Urine Glucose 4+ mg/dL (Normal) White Blood Count 5.5 10^3/uL (4.4-10.8) Red Blood Count 3.48 10^6/uL (4.0-5.20) Hemoglobin 9.8 g/dL (12.2-16.2) Hematocrit 30.2 % (36.0-46.0) Mean Corpuscular Volume 86.9 fL (80.0-100.0) Mean Corpuscular Hemoglobin 28.3 pg (28.0-32.0) Mean Corpuscular Hemoglobin Concent 32.6 g/dL (32.0-36.0) Red Cell Distribution Width 13.9 % (11.8-14.3) Platelet Count 354 10^3/uL (140-450) Mean Platelet Volume 7.2 fL (6.9-10.8) Neutrophils (%) (Auto) 67.8 % (37.0-80.0) Lymphocytes (%) (Auto) 22.4 % (10.0-50.0) Monocytes (%) (Auto) 8.0 % (0.0-12.0) Eosinophils (%) (Auto) 1.1 % (0.0-7.0) Basophils (%) (Auto) 0.7 % (0.0-2.0) Neutrophils # (Auto) 3.8 10 ^3/uL (1.6-8.6) Lymphocytes # (Auto) 1.2 10 ^3/uL (0.4-5.4) Monocytes # (Auto) 0.4 10 ^3/uL (0-1.3) Eosinophils # (Auto) 0.1 10 ^3/uL (0-0.8) Basophils # (Auto) 0 10 ^3/uL (0-0.2) Nucleated Red Blood Cells 0.2 % Sodium Level 136 mmol/L (136-145) Potassium Level 3.7 mmol/L (3.5-5.1) Chloride Level 103 mmol/L (98-107) Carbon Dioxide Level 25 mmol/L (20-31) Anion Gap 8 (5-15) Blood Urea Nitrogen 11 mg/dL (9-23) Creatinine 0.65 mg/dL (0.550-1.02) Glomerular Filtration Rate Calc 96 mL/min (>90) BUN/Creatinine Ratio 16.9 (10.0-20.0) Serum Glucose 387 mg/dL (74-106) Calcium Level 7.4 mg/dL (8.7-10.4) Total Bilirubin 0.2 mg/dL (0.2-1.0) Aspartate Amino Transferase (AST) 10 U/L (13-40) Alanine Aminotransferase (ALT) < 9 U/L (7-40) Alkaline Phosphatase 105 U/L (46-116) Total Protein 5.0 g/dL (5.7-8.2) Albumin 2.6 g/dL (3.2-4.8) Lactic Acid Level 1.4 mmol/L (0.4-2.0) Other Laboratory Tests 07/30/25 05:25 Brief Hx & Hospital Course: 70 year-old female, with a Hx of CVA and Dementia, who presents to the ED via EMS for rash. Patient is coming from [facility] care facility for rash X1 month to the groin, back, and extremities. Patient reports rash has been since worsening, with no alleviation via treatment and antibiotics. There are no further complaints or modifying factors at this time. cellulitis, severe itchiness sepsis with cellulitis DM type II with hyperglycemia dehydration acute metabolic encephalopathy chronic anemia obesity admitted and placed on empirical IV abx benadryl started on Lantus & sliding scale pt improved significantly her mental status also improved still itchy but manageable discharged back to facility Condition at Discharge: Fair Final Diagnosis/Problems List cellulitis Discharge Disposition: Assisted Living Facility Discharge Instruct/Medications Diet: Cardiac 2g Na,low cholest Activity: No Restrictions, As Tolerated Scheduled Amiodarone HCl (Amiodarone HCl), 200 MG PO DAILY Apixaban Base (Eliquis), 5 MG PO BID Aspirin (Aspirin Low Dose), 81 MG PO DAILY Atorvastatin Calcium (Atorvastatin Calcium), 10 MG PO HS Cephalexin (Keflex Capsule), 1 CAP PO QID Furosemide (Furosemide), 40 MG PO DAILY Insulin Glargine (Lantus), 10 UNITS SC HS Insulin Glargine (Lantus Solostar), 100 UNIT SC BID Insulin Regular (Human) (Novolin R), 0 UNITS SC IQ4HR Levothyroxine Sodium (Levothyroxine Sodium), 200 MCG PO QAM@0600 Discharge Statement: "Patient was advised to return to the ER or call 911 if any headaches, dizziness, shortness of breath, chest pain, abdominal pain, bleeding, fevers, or worsening of medical condition. Patient was counseled about treatment plan, medications, possible side effects, patientverbalized understanding. All questions were answered to the best of my ability. This discharge took greater then 30 minutes in planning, reviewing documentation, counseling the patient, and discussing with other team members." ASSESSMENT ASSESSMENT Assessment cellulitis KELIN LEACH DO Aug 06, 2025 10:29
--- NOTE | 2025-08-06 10:30 | DVHPN2 ---
Progress Note Date Seen: Jul 31, 2025 Medical Necessity Reason Pt with a Central, PICC or Fol: No Subjective Review of Systems: HEENT:Normal, CVS:Normal, RESPIRATORY:Normal Objective vital signs Vital Sign Date Time Temp Pulse Resp B/P (MAP) Pulse Ox O2 Delivery O2 Flow Rate FiO2 08/06/25 08:35 98.1 90 20 120/63 (82) 97 98.1 08/05/25 20:00 Nasal Cannula* 2 28 Total Intake and Output 08/05/25 08/05/25 08/06/25 15:00 23:00 07:00 Intake Total 620 ml 200 ml Output Total 700 ml 320 ml Balance -80 ml -120 ml medications Current Medications Medications Dose Ordered Sig/Lindsey Route Start Time Stop Time Status Last Admin Dose Admin Acetaminophen/ Hydrocodone Bitart 1 tab Q4HP PRN PO 07/29/25 22:15 08/06/25 02:41 1 TAB Ondansetron HCl 4 mg Q4HP PRN IV 07/29/25 22:15 Docusate Sodium 100 mg BIDPRN PRN PO 07/29/25 22:15 Acetaminophen 650 mg Q6HP PRN PO 07/29/25 22:15 08/03/25 15:59 650 MG Morphine Sulfate 2 mg Q4HPRN PRN IV 07/29/25 23:15 08/01/25 16:15 2 MG Nitroglycerin 0.4 mg Q5MINP PRN SL 07/29/25 22:15 Morphine Sulfate 2 mg Q30M PRN IV 07/29/25 23:15 Piperacillin Sod/ Tazobactam Sod 100 ml @ 100 mls/hr TID IV 07/30/25 06:00 08/06/25 06:21 100 MLS/HR Diphenhydramine HCl 50 mg QHSP PRN IV 07/30/25 01:15 07/30/25 05:42 50 MG Insulin Glargine 15 units BID@0700,2200 SC 08/01/25 22:00 08/06/25 06:21 15 UNITS Examination: GENERAL:Normal, HEENT:Normal, NECK:Normal, LUNGS:Normal, CVS:Normal laboratory and microbiology Laboratory Tests 07/30/25 05:25 Test 07/30/25 05:25 Range/Units Serum Glucose 387 H 74-106 mg/dL Microbiology Date/Time Source Procedure Growth Status 07/30/25 17:52 Nose MRSA Screen - Final Methicillin Resistant S.aureus Complete 07/30/25 06:20 Urine - Catheterized Urine Culture - Final Klebsiella pneumoniae Yeast, not Erika albicans Complete 07/29/25 19:48 Blood Blood Culture - Final NO GROWTH AFTER 5 DAYS OF INCUBATION. Complete Labs and/or images reviewed: Labs reviewed by me, Image(s) reviewed by me Problem List/Assessment/Plan Problem List/Assessment/Plan 70 year-old female, with a Hx of CVA and Dementia, who presents to the ED via EMS for rash. Patient is coming from [facility] for rash X1 month to the groin, back, and extremities. Patient reports rash has been since worsening, with no alleviation via treatment and antibiotics. There are no further complaints or modifying factors at this time. cellulitis, severe itchiness sepsis with cellulitis DM type II with hyperglycemia dehydration acute metabolic encephalopathy chronic anemia obesity continue with empirical iv abx daily assessment Plan discussed with: Patient My Orders My Orders Orders - KELIN LEACH DO Procedure Category Date Status Time Discharge DISCHARGE 08/06/25 Transmitted 10:25 Dietary Evaluation Review Comments: Monitor PO intake, lab values, weight trend, and I/O Expected Outcomes/Goals: Lab values to improve Intake to meet >75% estimated needs FU 3-5 days KELIN LEACH DO Aug 06, 2025 10:30
--- NOTE | 2025-08-06 10:31 | DVHPN2 ---
Progress Note Date Seen: Aug 03, 2025 Medical Necessity Reason Pt with a Central, PICC or Fol: No Subjective Review of Systems: HEENT:Normal, CVS:Normal, RESPIRATORY:Normal Objective vital signs Vital Sign Date Time Temp Pulse Resp B/P (MAP) Pulse Ox O2 Delivery O2 Flow Rate FiO2 08/06/25 08:35 98.1 90 20 120/63 (82) 97 98.1 08/05/25 20:00 Nasal Cannula* 2 28 Total Intake and Output 08/05/25 08/05/25 08/06/25 15:00 23:00 07:00 Intake Total 620 ml 200 ml Output Total 700 ml 320 ml Balance -80 ml -120 ml medications Current Medications Medications Dose Ordered Sig/Lindsey Route Start Time Stop Time Status Last Admin Dose Admin Acetaminophen/ Hydrocodone Bitart 1 tab Q4HP PRN PO 07/29/25 22:15 08/06/25 02:41 1 TAB Ondansetron HCl 4 mg Q4HP PRN IV 07/29/25 22:15 Docusate Sodium 100 mg BIDPRN PRN PO 07/29/25 22:15 Acetaminophen 650 mg Q6HP PRN PO 07/29/25 22:15 08/03/25 15:59 650 MG Morphine Sulfate 2 mg Q4HPRN PRN IV 07/29/25 23:15 08/01/25 16:15 2 MG Nitroglycerin 0.4 mg Q5MINP PRN SL 07/29/25 22:15 Morphine Sulfate 2 mg Q30M PRN IV 07/29/25 23:15 Piperacillin Sod/ Tazobactam Sod 100 ml @ 100 mls/hr TID IV 07/30/25 06:00 08/06/25 06:21 100 MLS/HR Diphenhydramine HCl 50 mg QHSP PRN IV 07/30/25 01:15 07/30/25 05:42 50 MG Insulin Glargine 15 units BID@0700,2200 SC 08/01/25 22:00 08/06/25 06:21 15 UNITS Examination: GENERAL:Normal, HEENT:Normal, NECK:Normal laboratory and microbiology Laboratory Tests 07/30/25 05:25 Test 07/30/25 05:25 Range/Units Serum Glucose 387 H 74-106 mg/dL Microbiology Date/Time Source Procedure Growth Status 07/30/25 17:52 Nose MRSA Screen - Final Methicillin Resistant S.aureus Complete 07/30/25 06:20 Urine - Catheterized Urine Culture - Final Klebsiella pneumoniae Yeast, not Erika albicans Complete 07/29/25 19:48 Blood Blood Culture - Final NO GROWTH AFTER 5 DAYS OF INCUBATION. Complete Labs and/or images reviewed: Labs reviewed by me, Image(s) reviewed by me Problem List/Assessment/Plan Problem List/Assessment/Plan 70 year-old female, with a Hx of CVA and Dementia, who presents to the ED via EMS for rash. Patient is coming from [facility] for rash X1 month to the groin, back, and extremities. Patient reports rash has been since worsening, with no alleviation via treatment and antibiotics. There are no further complaints or modifying factors at this time. cellulitis, severe itchiness sepsis with cellulitis DM type II with hyperglycemia dehydration acute metabolic encephalopathy chronic anemia obesity continue with empirical iv abx daily assessment discussed with nursing Plan discussed with: Patient My Orders My Orders Orders - KELIN LEACH DO Procedure Category Date Status Time Discharge DISCHARGE 08/06/25 Transmitted 10:25 Dietary Evaluation Review Comments: Monitor PO intake, lab values, weight trend, and I/O Expected Outcomes/Goals: Lab values to improve Intake to meet >75% estimated needs FU 3-5 days KELIN LEACH DO Aug 06, 2025 10:31
--- NOTE | 2025-08-06 10:31 | DVHPN2 ---
Progress Note Date Seen: Aug 02, 2025 Medical Necessity Reason Pt with a Central, PICC or Fol: No Objective vital signs Vital Sign Date Time Temp Pulse Resp B/P (MAP) Pulse Ox O2 Delivery O2 Flow Rate FiO2 08/06/25 08:35 98.1 90 20 120/63 (82) 97 98.1 08/05/25 20:00 Nasal Cannula* 2 28 Total Intake and Output 08/05/25 08/05/25 08/06/25 15:00 23:00 07:00 Intake Total 620 ml 200 ml Output Total 700 ml 320 ml Balance -80 ml -120 ml medications Current Medications Medications Dose Ordered Sig/Lindsey Route Start Time Stop Time Status Last Admin Dose Admin Acetaminophen/ Hydrocodone Bitart 1 tab Q4HP PRN PO 07/29/25 22:15 08/06/25 02:41 1 TAB Ondansetron HCl 4 mg Q4HP PRN IV 07/29/25 22:15 Docusate Sodium 100 mg BIDPRN PRN PO 07/29/25 22:15 Acetaminophen 650 mg Q6HP PRN PO 07/29/25 22:15 08/03/25 15:59 650 MG Morphine Sulfate 2 mg Q4HPRN PRN IV 07/29/25 23:15 08/01/25 16:15 2 MG Nitroglycerin 0.4 mg Q5MINP PRN SL 07/29/25 22:15 Morphine Sulfate 2 mg Q30M PRN IV 07/29/25 23:15 Piperacillin Sod/ Tazobactam Sod 100 ml @ 100 mls/hr TID IV 07/30/25 06:00 08/06/25 06:21 100 MLS/HR Diphenhydramine HCl 50 mg QHSP PRN IV 07/30/25 01:15 07/30/25 05:42 50 MG Insulin Glargine 15 units BID@0700,2200 SC 08/01/25 22:00 08/06/25 06:21 15 UNITS laboratory and microbiology Laboratory Tests 07/30/25 05:25 Test 07/30/25 05:25 Range/Units Serum Glucose 387 H 74-106 mg/dL Microbiology Date/Time Source Procedure Growth Status 07/30/25 17:52 Nose MRSA Screen - Final Methicillin Resistant S.aureus Complete 07/30/25 06:20 Urine - Catheterized Urine Culture - Final Klebsiella pneumoniae Yeast, not Erika albicans Complete 07/29/25 19:48 Blood Blood Culture - Final NO GROWTH AFTER 5 DAYS OF INCUBATION. Complete Labs and/or images reviewed: Labs reviewed by me, Image(s) reviewed by me Problem List/Assessment/Plan Problem List/Assessment/Plan 70 year-old female, with a Hx of CVA and Dementia, who presents to the ED via EMS for rash. [facility] X1 month to the groin, back, and extremities. Patient reports rash has been since worsening, with no alleviation via treatment and antibiotics. There are no further complaints or modifying factors at this time. cellulitis, severe itchiness sepsis with cellulitis DM type II with hyperglycemia dehydration acute metabolic encephalopathy chronic anemia obesity continue with empirical iv abx daily assessment discussed with nursing Plan discussed with: Patient My Orders My Orders Orders - KELIN LEACH DO Procedure Category Date Status Time Discharge DISCHARGE 08/06/25 Transmitted 10:25 Dietary Evaluation Review Comments: Monitor PO intake, lab values, weight trend, and I/O Expected Outcomes/Goals: Lab values to improve Intake to meet >75% estimated needs FU 3-5 days KELIN LEACH DO Aug 06, 2025 10:31
--- NOTE | 2025-08-06 10:32 | DVHPN2 ---
Progress Note Date Seen: Aug 05, 2025 Medical Necessity Reason Pt with a Central, PICC or Fol: No Objective vital signs Vital Sign Date Time Temp Pulse Resp B/P (MAP) Pulse Ox O2 Delivery O2 Flow Rate FiO2 08/06/25 08:35 98.1 90 20 120/63 (82) 97 98.1 08/05/25 20:00 Nasal Cannula* 2 28 Total Intake and Output 08/05/25 08/05/25 08/06/25 15:00 23:00 07:00 Intake Total 620 ml 200 ml Output Total 700 ml 320 ml Balance -80 ml -120 ml medications Current Medications Medications Dose Ordered Sig/Lindsey Route Start Time Stop Time Status Last Admin Dose Admin Acetaminophen/ Hydrocodone Bitart 1 tab Q4HP PRN PO 07/29/25 22:15 08/06/25 02:41 1 TAB Ondansetron HCl 4 mg Q4HP PRN IV 07/29/25 22:15 Docusate Sodium 100 mg BIDPRN PRN PO 07/29/25 22:15 Acetaminophen 650 mg Q6HP PRN PO 07/29/25 22:15 08/03/25 15:59 650 MG Morphine Sulfate 2 mg Q4HPRN PRN IV 07/29/25 23:15 08/01/25 16:15 2 MG Nitroglycerin 0.4 mg Q5MINP PRN SL 07/29/25 22:15 Morphine Sulfate 2 mg Q30M PRN IV 07/29/25 23:15 Piperacillin Sod/ Tazobactam Sod 100 ml @ 100 mls/hr TID IV 07/30/25 06:00 08/06/25 06:21 100 MLS/HR Diphenhydramine HCl 50 mg QHSP PRN IV 07/30/25 01:15 07/30/25 05:42 50 MG Insulin Glargine 15 units BID@0700,2200 SC 08/01/25 22:00 08/06/25 06:21 15 UNITS laboratory and microbiology Laboratory Tests 07/30/25 05:25 Test 07/30/25 05:25 Range/Units Serum Glucose 387 H 74-106 mg/dL Microbiology Date/Time Source Procedure Growth Status 07/30/25 17:52 Nose MRSA Screen - Final Methicillin Resistant S.aureus Complete 07/30/25 06:20 Urine - Catheterized Urine Culture - Final Klebsiella pneumoniae Yeast, not Erika albicans Complete 07/29/25 19:48 Blood Blood Culture - Final NO GROWTH AFTER 5 DAYS OF INCUBATION. Complete Labs and/or images reviewed: Labs reviewed by me, Image(s) reviewed by me Problem List/Assessment/Plan Problem List/Assessment/Plan 70 year-old female, with a Hx of CVA and Dementia, who presents to the ED via EMS for rash. Patient is coming from [facility] care facility for rash X1 month to the groin, back, and extremities. Patient reports rash has been since worsening, with no alleviation via treatment and antibiotics. There are no further complaints or modifying factors at this time. cellulitis, severe itchiness sepsis with cellulitis DM type II with hyperglycemia dehydration acute metabolic encephalopathy chronic anemia obesity continue with empirical iv abx daily assessment discussed with nursing Plan discussed with: Other (nursing staff) My Orders My Orders Orders - KELIN LEACH DO Procedure Category Date Status Time Discharge DISCHARGE 08/06/25 Transmitted 10:25 Dietary Evaluation Review Comments: Monitor PO intake, lab values, weight trend, and I/O Expected Outcomes/Goals: Lab values to improve Intake to meet >75% estimated needs FU 3-5 days KELIN LEACH DO Aug 06, 2025 10:32
--- NOTE | 2025-08-06 10:32 | DVHPN2 ---
Progress Note Date Seen: Aug 04, 2025 Medical Necessity Reason Pt with a Central, PICC or Fol: No Objective vital signs Vital Sign Date Time Temp Pulse Resp B/P (MAP) Pulse Ox O2 Delivery O2 Flow Rate FiO2 08/06/25 08:35 98.1 90 20 120/63 (82) 97 98.1 08/05/25 20:00 Nasal Cannula* 2 28 Total Intake and Output 08/05/25 08/05/25 08/06/25 15:00 23:00 07:00 Intake Total 620 ml 200 ml Output Total 700 ml 320 ml Balance -80 ml -120 ml medications Current Medications Medications Dose Ordered Sig/Lindsey Route Start Time Stop Time Status Last Admin Dose Admin Acetaminophen/ Hydrocodone Bitart 1 tab Q4HP PRN PO 07/29/25 22:15 08/06/25 02:41 1 TAB Ondansetron HCl 4 mg Q4HP PRN IV 07/29/25 22:15 Docusate Sodium 100 mg BIDPRN PRN PO 07/29/25 22:15 Acetaminophen 650 mg Q6HP PRN PO 07/29/25 22:15 08/03/25 15:59 650 MG Morphine Sulfate 2 mg Q4HPRN PRN IV 07/29/25 23:15 08/01/25 16:15 2 MG Nitroglycerin 0.4 mg Q5MINP PRN SL 07/29/25 22:15 Morphine Sulfate 2 mg Q30M PRN IV 07/29/25 23:15 Piperacillin Sod/ Tazobactam Sod 100 ml @ 100 mls/hr TID IV 07/30/25 06:00 08/06/25 06:21 100 MLS/HR Diphenhydramine HCl 50 mg QHSP PRN IV 07/30/25 01:15 07/30/25 05:42 50 MG Insulin Glargine 15 units BID@0700,2200 SC 08/01/25 22:00 08/06/25 06:21 15 UNITS Examination: GENERAL:Normal laboratory and microbiology Laboratory Tests 07/30/25 05:25 Test 07/30/25 05:25 Range/Units Serum Glucose 387 H 74-106 mg/dL Microbiology Date/Time Source Procedure Growth Status 07/30/25 17:52 Nose MRSA Screen - Final Methicillin Resistant S.aureus Complete 07/30/25 06:20 Urine - Catheterized Urine Culture - Final Klebsiella pneumoniae Yeast, not Erika albicans Complete 07/29/25 19:48 Blood Blood Culture - Final NO GROWTH AFTER 5 DAYS OF INCUBATION. Complete Labs and/or images reviewed: Labs reviewed by me, Image(s) reviewed by me Problem List/Assessment/Plan Problem List/Assessment/Plan 70 year-old female, with a Hx of CVA and Dementia, who presents to the ED via EMS for rash. [facility] rash X1 month to the groin, back, and extremities. Patient reports rash has been since worsening, with no alleviation via treatment and antibiotics. There are no further complaints or modifying factors at this time. cellulitis, severe itchiness sepsis with cellulitis DM type II with hyperglycemia dehydration acute metabolic encephalopathy chronic anemia obesity continue with empirical iv abx daily assessment discussed with nursing Plan discussed with: Patient My Orders My Orders Orders - KELIN LEACH DO Procedure Category Date Status Time Discharge DISCHARGE 08/06/25 Transmitted 10:25 Dietary Evaluation Review Comments: Monitor PO intake, lab values, weight trend, and I/O Expected Outcomes/Goals: Lab values to improve Intake to meet >75% estimated needs FU 3-5 days KELIN LEACH DO Aug 06, 2025 10:32
[2025-08-07 01:00] VITALS: BP 128/68; PULSE 87; RESP 18; TEMP 97.4; O2SAT 99
== END 2025-08-07 04:20 | disposition home or self-care (01) | DRG 871 ==
LOC: EDBD 17:56 → ER 17:56 → OVERFLOW 22:07 → CENTRAL 07-30 16:50
PROVIDERS: ADMIT Internal Medicine; ATTEND Internal Medicine
DX: A41.9 Sepsis, unspecified organism (principal); G93.41 Metabolic encephalopathy; E87.20 Acidosis, unspecified; R71.0 Precipitous drop in hematocrit; B35.6 Tinea cruris; L03.116 Cellulitis of left lower limb; L03.115 Cellulitis of right lower limb; L03.314 Cellulitis of groin; L03.312 Cellulitis of back [any part except buttock and flank]; F03.94 Unspecified dementia, unspecified severity, with anxiety; E11.65 Type 2 diabetes mellitus with hyperglycemia; E66.9 Obesity, unspecified; J45.909 Unspecified asthma, uncomplicated; I10 Essential (primary) hypertension; E07.9 Disorder of thyroid, unspecified; F41.9 Anxiety disorder, unspecified; E86.0 Dehydration; Z86.73 Personal history of transient ischemic attack (TIA), and cerebral infarction without residual deficits; Z82.5 Family history of asthma and other chronic lower respiratory diseases; Z68.38 Body mass index [BMI] 38.0-38.9, adult; Z79.899 Other long term (current) drug therapy
CPT/HCPCS: 36415; 71045; 80053; 81001; 82962; 83605; 85025; 87040; 87081; 87086; 87088; 87186; 96365; G0378; J1450; J1815; J2543